=== PATIENT | male | born 1950 | race Caucasian/White ===

== ENCOUNTER 2019-02-17 07:10 | Outpatient (RCR) | payer OTHER, MEDICARE, SELFPAY | END 2019-02-18 00:01 | LOC: ONCMED 07:10 | PROVIDERS: Visit Provider Internal Medicine Medical Oncology | DX: C88.4 Extranodal marginal zone B-cell lymphoma of mucosa-associated lymphoid tissue [MALT-lymphoma] (principal); C90.00 Multiple myeloma not having achieved remission; Z85.528 Personal history of other malignant neoplasm of kidney; D47.2 Monoclonal gammopathy; D64.9 Anemia, unspecified; J90 Pleural effusion, not elsewhere classified; Z90.5 Acquired absence of kidney; R06.02 Shortness of breath; R53.83 Other fatigue; Z51.81 Encounter for therapeutic drug level monitoring; Z79.899 Other long term (current) drug therapy ==

== ENCOUNTER 2019-02-27 07:20 | Outpatient (RCR) | payer OTHER, MEDICARE, SELFPAY ==
[2019-02-24 17:34] LABS: Basophils % 0.9 %; Hematocrit 27.8 % (42.0-52.0); Lymphocytes # 0.2 10^3/uL (0.8-4.8); Lymphocytes % 16.5 %; Mean Corpuscular HGB Conc 32.4 g/dL (30.0-36.0); Mean Corpuscular Hemoglobin 27.8 pg (28.0-34.0); Mean Corpuscular Volume 85.8 fL (80-94); Mean Platelet Volume 10.7 fL (7.4-10.4); Monocytes % 1.7 %; Neutrophils # 0.9 10^3/uL (1.8-7.7); Nucleated Red Blood Cells % 0 %; Platelet Count 158 10^3/cmm (130-400); Red Blood Count 3.24 10^6/uL (4.1-5.3); Red Cell Distribution Width 14.2 % (12.1-15.1); White Blood Count 1.2 10^3/uL (4.0-10.0)
[2019-02-24 23:09] LABS: Alanine Aminotransferase 11 U/L (0-41); Albumin Level 2.8 g/dL (3.5-5.2); Alkaline Phosphatase 110 IU/L (40-130); Anion Gap 13.5 (5-19); Aspartate Amino Transferase 10 U/L (0-40); Blood Urea Nitrogen 29 mg/dL (8-23); Calcium 9.1 mg/Dl (8.8-10.2); Carbon Dioxide 23 mmol/L (22-29); Chloride 96 mmol/L (98-107); Globulin 5.8 g/dL (1.3-4.6); Glucose 109 mg/dL (74-106); Potassium 4.5 mmol/L (3.5-5.1); Sodium 128 mmol/L (136-145); Total Bilirubin 0.6 mg/dL (0.15-1.2); Total Protein 8.6 g/dL (6.6-8.7)
[2019-02-27 13:38] LABS: Alanine Aminotransferase 7 U/L (0-41); Albumin Level 2.5 g/dL (3.5-5.2); Alkaline Phosphatase 86 IU/L (40-130); Anion Gap 13.7 (5-19); Aspartate Amino Transferase 10 U/L (0-40); Blood Urea Nitrogen 28 mg/dL (8-23); Calcium 8.7 mg/Dl (8.8-10.2); Carbon Dioxide 22 mmol/L (22-29); Chloride 97 mmol/L (98-107); Globulin 4.5 g/dL (1.3-4.6); Glucose 116 mg/dL (74-106); Potassium 4.7 mmol/L (3.5-5.1); Sodium 128 mmol/L (136-145); Total Bilirubin 0.5 mg/dL (0.15-1.2)
[2019-02-27 13:59] LABS: Hematocrit 21.7 % (42.0-52.0); Lymphocytes # 0.2 10^3/uL (0.8-4.8); Lymphocytes % 35.6 %; Mean Corpuscular HGB Conc 32.3 g/dL (30.0-36.0); Mean Corpuscular Hemoglobin 28.2 pg (28.0-34.0); Mean Corpuscular Volume 87.5 fL (80-94); Mean Platelet Volume 10.9 fL (7.4-10.4); Monocytes % 1.7 %; Neutrophils % 40.7 %; Nucleated Red Blood Cells % 0 %; Platelet Count 118 10^3/cmm (130-400); Red Blood Count 2.48 10^6/uL (4.1-5.3); Red Cell Distribution Width 14.3 % (12.1-15.1)
[2019-02-27 15:19] LABS: Neutrophils # 0.2 10^3/uL (1.8-7.7); White Blood Count 0.6 10^3/uL (4.0-10.0)
[2019-02-27 15:20] LABS: Slide Review Slide Review Perform
[2019-02-28] VITALS (10 sets, daily range): BP systolic 89–108; BP diastolic 58–71; PULSE 65–85; RESP 18; TEMP 36.4–36.7; O2SAT 68–98
[2019-03-10 09:34] LABS: Alanine Aminotransferase 10 U/L (0-41); Albumin Level 2.5 g/dL (3.5-5.2); Alkaline Phosphatase 111 IU/L (40-130); Anion Gap 14.5 (5-19); Aspartate Amino Transferase 11 U/L (0-40); Blood Urea Nitrogen 24 mg/dL (8-23); Calcium 9.1 mg/Dl (8.8-10.2); Carbon Dioxide 23 mmol/L (22-29); Chloride 98 mmol/L (98-107); Globulin 5.5 g/dL (1.3-4.6); Glucose 111 mg/dL (74-106); Potassium 4.5 mmol/L (3.5-5.1); Sodium 131 mmol/L (136-145); Total Bilirubin 0.5 mg/dL (0.15-1.2)
[2019-03-10 09:39] LABS: Basophils % 0.5 %; Hematocrit 27.8 % (42.0-52.0); Hemoglobin 9.3 g/dL (11.7-16.6); Lymphocytes # 0.3 10^3/uL (0.8-4.8); Lymphocytes % 4.8 %; Mean Corpuscular HGB Conc 33.5 g/dL (30.0-36.0); Mean Corpuscular Hemoglobin 27.5 pg (28.0-34.0); Mean Corpuscular Volume 82.2 fL (80-94); Mean Platelet Volume 9.7 fL (7.4-10.4); Monocytes # 0.3 10^3/uL (0.2-0.9); Monocytes % 4.5 %; Neutrophils # 5.4 10^3/uL (1.8-7.7); Neutrophils % 86.1 %; Nucleated Red Blood Cells % 0 %; Platelet Count 199 10^3/cmm (130-400); Red Blood Count 3.38 10^6/uL (4.1-5.3); White Blood Count 6.3 10^3/uL (4.0-10.0)
[2019-03-10 09:53] LABS: Slide Review Slide Review Perform
[2019-03-13 08:37] LABS: Basophils % 0.1 %; Hematocrit 26.2 % (42.0-52.0); Hemoglobin 8.5 g/dL (11.7-16.6); Lymphocytes # 0.3 10^3/uL (0.8-4.8); Lymphocytes % 4.8 %; Mean Corpuscular HGB Conc 32.4 g/dL (30.0-36.0); Mean Corpuscular Hemoglobin 26.8 pg (28.0-34.0); Mean Corpuscular Volume 82.6 fL (80-94); Mean Platelet Volume 9.3 fL (7.4-10.4); Monocytes # 0.3 10^3/uL (0.2-0.9); Monocytes % 4.2 %; Neutrophils # 5.5 10^3/uL (1.8-7.7); Neutrophils % 81.5 %; Nucleated Red Blood Cells % 0 %; Platelet Count 255 10^3/cmm (130-400); Red Blood Count 3.17 10^6/uL (4.1-5.3); Red Cell Distribution Width 14.1 % (12.1-15.1); White Blood Count 6.7 10^3/uL (4.0-10.0)
[2019-03-13 08:55] LABS: Alanine Aminotransferase 9 U/L (0-41); Albumin Level 2.8 g/dL (3.5-5.2); Alkaline Phosphatase 128 IU/L (40-130); Anion Gap 14.6 (5-19); Aspartate Amino Transferase 13 U/L (0-40); Blood Urea Nitrogen 26 mg/dL (8-23); Calcium 9.1 mg/Dl (8.8-10.2); Carbon Dioxide 23 mmol/L (22-29); Chloride 97 mmol/L (98-107); Globulin 5.4 g/dL (1.3-4.6); Glucose 136 mg/dL (74-106); Potassium 4.6 mmol/L (3.5-5.1); Sodium 130 mmol/L (136-145); Total Bilirubin 0.4 mg/dL (0.15-1.2); Total Protein 8.2 g/dL (6.6-8.7)
[2019-03-13 09:15] LABS: Slide Review Slide Review Perform
--- NOTE | 2019-03-15 13:53 | ONC FU_ITS ---
Dr. Lazo Patient Follow-Up Note Patient: Malik Montiel Unit #: [id number]: [id number] Dicatated By: Ulysses Lazo M.D.Date of Visit:Mar 13, 2019 Onc Med Follow-up/Prog Note Chief Complaint: Anemia/lymphoma/myeloma/renal cell cancer. 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 He had presented in October 2015 with fatigue, shortness of breath, dizziness, and numbness/tingling. He was found on CBC to have a hemoglobin of 6.7 g. He received a transfusion of 2 U of packed red blood cells on 11/12/2015, and he subsequently felt much better. He had further laboratory evaluation on 11/12/2015 including haptoglobin which was normal at 71.8 mg/dL, normal serum iron at 133 mcg/dL with transferrin saturation 33%, and normal ferritin at 301 ng/mL. LDH was normal 166 U/L. Folate was elevated. Protein electrophoresis showed an IgG kappa monoclonal protein quantitating at 0.90 g/dL. The free kappa light chain was elevated at 344 mg/L, and the kappa: lambda ratio was elevated at 26.31. Skeletal survey on 11/19/2015 showed no evidence of lytic bone involvement. He underwent bone marrow aspiration/biopsy on 11/29/2015. The bone marrow was packed, cellularity 100%. It was a dry tap, so there was no aspirate available for analysis. The biopsy touch preps showed a proliferation of atypical mononuclear cells consistent with lymphoid origin. The bone marrow differential, based on the biopsy, showed an estimated 84% lymphocytes. The findings were felt to be consistent with extensive bone marrow involvement with a small B cell lymphoma with a diffuse pattern of infiltration. Plasma cells were noted to be just slightly increased with a slight kappa predilection. The immunophenotype of the B cell neoplasm was felt to be nonspecific, but favored marginal zone lymphoma. Iron stores were present 1+/4+. At the time of the bone marrow biopsy, his hemoglobin was back down to 7.7 g, and he did receive an additional 2 U of packed red blood cells. Staging PET/CT on 12/04/2015 showed an 8 cm heterogeneous mass involving the anterior right kidney with low grade FDG uptake, consistent with a probable incidental right renal cell carcinoma. There were no obvious sites of lymphoma or soft tissue plasmacytoma. Given the bone marrow findings, treatment with single agent rituximab weekly for 6 weeks was recommended. He received his week 1 infusion of rituximab on 12/16/15. He did experience an infusion reaction with it, but he subsequently tolerated treatment well with Solu-Medrol premedication. As of 01/20/2016 he completed his sixth weekly infusion. During the treatment he did show some symptomatic improvement, but he remained moderately anemic. Repeat bone marrow aspiration/biopsy on 02/23/2016 again showed a dry tap, with no obtainable aspirate. The cellularity was 100% with complete effacement by lymphoid proliferation consistent with the previous diagnosis of small B-cell lymphoma favoring marginal zone lymphoma. Whole blood flow cytometry showed rare CD5/CD10 double negative monotypic B cells with dim kappa light chain. The cells were positive for CD23 and negative for FMC-7. IHC demonstrated dim CD20 as well as strong CD43 and BCL-2. The cells were negative for CD5, CD10, CD3, BCL-6, BRAF, and CD21. The MYD-88 mutation was not detected. The findings were felt to be diagnostic of a small B-cell lymphoma. CT scans of the chest, abdomen, and pelvis on 03/15/2016 showed the large right renal mass measuring 10.5 x 8.4 x 8.7 cm, similar to the prior PET/CT. Left supraclavicular, AP window, mesenteric, and retroperitoneal lymphadenopathy were present on the prior PET CT from 12/04/2015 and were FDG negative. Also noted was a 5 mm spiculated nodule in the right middle lobe and additional 2 mm scattered noncalcified nodules in the left upper lobe. With those findings, he was seen by Dr. Mamadou Alvarado at [facility] for a second opinion evaluation. Evaluation included biopsy of the right renal mass, which did confirm involvement with lymphoma. He was recommended to continue treatment with a course of chemotherapy with bendamustine/Rituxan. He began cycle 1 of bendamustine/Rituxan on 04/21/2016. He was able to continue with cycle 2 on 05/19/2016 and with cycle 3 on 06/20/2016. The third cycle was delayed due to prolonged but not severe neutropenia. He was given Neulasta prophylactically with that cycle. He tolerated the treatment well, but there was still no improvement in his anemia. Restaging CT of the abdomen/pelvis on 07/19/2016 showed resolution of mesenteric and retroperitoneal lymphadenopathy, but no significant change in the complex right renal mass, measuring 10.5 x 8.7 x 9.2 cm. The spleen was still slightly enlarged. Repeat bone marrow aspiration/biopsy on 08/02/2016 showed persistent hypercellularity, estimated at 95-100%. Flow cytometry still showed evidence of a monoclonal B-cell population, but it accounted for only 1-2% of the marrow cellularity. Plasma cells were estimated at 10-20% with kappa light chain predominance, suggestive of plasma cell dyscrasia. Repeat protein electrophoresis showed persistent IgG kappa monoclonal protein, increased to 1.57 g/dL compared to 0.86 g/dL on 03/27/2016. The free kappa light chain was elevated at 753 mg/L with the kappa/lambda ration elevated at 70.64. A random urine showed a protein concentration of 8 mg/dL, 5.1% of which was monoclonal protein. Skeletal survey showed no lytic bone involvement. He returned to [facility] and he was seen by Dr. Jared Escobar on 10/16/2016. On their review of the bone marrow it was felt that the kappa restricted [id number] cells comprised 20 to 25% of the marrow aspirate, and he was recommended to begin treatment with KRd or VRd pending outcome of repeat bone marrow aspiration/biopsy and repeat staging PET/CT. PET/CT on 10/26/2016 showed FDG avid mixed cystic and solid right renal mass, SUV 2.1. A mildly prominent periaortic lymph node measuring 1.3 x 0.9 cm showed low-level uptake, SUV 2.7. A normal sized subcarinal lymph node showed mild hypermetabolism, SUV 2.5. There was no evidence of osseous involvement with myeloma. There was an abnormal focus of hypermetabolism within the left frontal cortex of the brain with maximum SUV 5.7, highly suspicious for neoplastic process. Further evaluation with brain MRI on 10/31/2016 showed numerous enhancing intraparenchymal metastatic lesions, estimated at 10-12 in number, the largest in the left frontal lobe measuring 2.1 cm. He returned to [facility] where he was admitted to the hospital and then completed additional evaluation with lumbar puncture and biopsy of the left frontal lobe mass. During that time he was transfused a total of 4 units of PRBC. He was discharged home on dexamethasone and Keppra. Pathology ultimately was nondiagnostic. During subsequent follow-up, he was tapered off dexamethasone. He then returned to [facility] and he underwent left frontal craniotomy with open biopsy of the left frontal lobe lesion. Pathology showed metastatic clear cell carcinoma consistent with renal primary. On 05/03/2017 he underwent right laparoscopic radical nephrectomy at [facility]. His tumor was noted to be locally advanced, with extension to the renal sinus, but it was completely resected. Pathology showed renal cell carcinoma measuring 9.5 cm, clear-cell type, WHO/ISUP grade 2. There was invasion of the renal sinus, but resection margins were uninvolved. There were no lymph nodes included in the specimen. Pathologic staging was pT3a, Nx. A noncontrast head CT on 06/07/2017 reported new multiple 5 mm hyperdense foci within the brain, but without a significant amount of surrounding edema or mass effect. He required further transfusions of packed red blood cells on 06/07/2017, on 07/03/2017, and on 07/19/2017. He had follow-up with Dr. Dereje Jones at [facility] on 07/24/2017. His repeat MRI at that time showed no evidence of recurrence within the left tumor cavity. The left posterior frontal treated lesion was noted to have less peritumoral edema and slightly less enhancement. The left insular tumor was difficult to detect, and the right posterior temporal tumors appeared approximately the same without any clear enhancement. Overall, it was felt that his brain lesions appeared adequately treated and with no new lesions identified. He was recommended to return for follow-up in 3 months. Restaging PET/CT on 08/11/2017 showed abnormal activity in the left supraclavicular lymph node, SUV 2.9. A 1 cm left superior mediastinal lymph node was FDG avid, SUV 4.4. A subcarinal lymph node measuring 1.5 cm was FDG avid with SUV 7.5 and a 1.5 cm right retrocrural node at the level of the diaphragmatic hiatus was noted to have mild abnormal FDG activity. Other small subcentimeter retroperitoneal lymph nodes showed no significant FDG activity. Multiple hepatic hypodensities were noted to be FDG negative and unchanged from the prior study in November 2015. There was no evidence of other metastatic disease. On 08/16/2017 he underwent repeat bone marrow aspiration/biopsy and biopsy of a left posterior cervical lymph node. Pathology on the lymph node showed small B-cell lymphoma with plasmacytic differentiation. The malignant cells were positive for CD45, CD19, CD20, CD23, and kappa light chain. They were negative for CD5, CD10, and FMC7. The reported differential included CD5 negative SLL/CLL versus marginal zone lymphoma. The bone marrow aspiration/biopsy was hypercellular with 100% cellularity. There was mild reticulin fibrosis noted. There were no overt dysplastic changes. There was no obvious infiltrative process identified. The flow cytometry demonstrated predominantly mature granulocytes. There were only rare polytypic B cells noted without aberrant antigen expression. There was no increase in CD34 positive blasts, CD117 positive immature precursors, or plasma cells. The FISH panels for myeloma and MDS were unrevealing, and the standard cytogenetic study was normal. Overall, the bone marrow was hypercellular but otherwise nondiagnostic. Given those findings, I had opted to just continue with observation and symptomatic/supportive measures. He remained transfusion dependent. His laboratory studies did show evidence of transfusion associated iron overload, and he then started treatment with Jadenu 14 mg/kg daily. A repeat brain MRI on 10/23/2017 showed postoperative changes of interval left frontal craniotomy with resection cavity and a small amount of surrounding glioma doses. A 5 mm enhancing lesion in the left posterior frontal lobe was felt to be new. There was associated small amount of surrounding edema and hemosiderin. The previously described enhancing lesions had showed interval resolution. There was interval significant improvement in the previously described edema. However, during follow-up he remained transfusion dependent, and there was gradual increase in his M protein. Restaging PET/CT on 02/02/2018 showed decrease in the left supraclavicular and left superior mediastinal lymph nodes which had been noted on the prior study. A 1.5 cm subcarinal lymph node appeared stable, SUV 8.8. There was progression of right retrocrural node and there was a new portal lymph node measuring 1.4 cm. Also noted were new bilateral retroperitoneal lymph nodes in the right and left periaortic chair territories. These were consistent with disease progression. In February 2017 he underwent reevaluation with Dr. Jared Escobar at [facility]. His repeat bone marrow aspiration/biopsy on 03/08/2018 showed extensive involvement with recurrent/persistent B-cell lymphoma, estimated at greater than 70% involvement. The morphologic and immunophenotypic features were felt to be most consistent with a B-cell lymphoma with plasmacytic differentiation. Also noted was a kappa restricted plasma cell population comprising 10% of the marrow cellularity. With those findings, it was recommended that he begin a course of chemotherapy with cyclophosphamide/Velcade/dexamethasone. He began cycle 1 of cyclophosphamide/Velcade/dexamethasone on 04/08/2018. He also started weekly Procrit injections for the anemia. He tolerated the treatment well and he was able to continue with cycle 2 on 04/29/2018. His cycle 2 day 8 cyclophosphamide and his day 11 Velcade were held and his cycle 3 was delayed due to neutropenia. He was able to continue with cycle 3 on 05/27/2018. It was again complicated by neutropenia, and that cycle was limited to day 1 cyclophosphamide and day 1/day 4 Velcade. During this time he continued Procrit injections weekly. He had remained transfusion dependent, though not as frequently. His repeat protein electrophoresis on 06/17/2018 showed stable M protein at 3.1 g/dL. He continued with cycle 4 of cyclophosphamide/Velcade/dexamethasone on 06/24/2018, with cycle 5 on 07/16/2018, and with cycle 6 on 08/05/2018. Repeat bone marrow aspiration/biopsy on 08/29/2018 showed hypercellular marrow at 100% cellularity with an atypical lymphoid proliferation comprising 70-75% of the hematopoietic population. Flow cytometry showed a monotypic B-cell population comprising 10% of the total cellularity. The B cells were positive for CD45, CD19, CD20, CD23, and kappa light chain. They were negative for CD5, CD10, and FMC7. Nucleated RBCs were noted to be markedly decreased and relative number. There was limited dyserythropoiesis. Ring sideroblasts were noted to comprise 10% of the population. 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 The FISH panel was positive for IGH gain ( trisomy for chromosomes 14 q/14 or IGH rearrangement). Restaging PET/CT on 08/31/2018 showed unchanged subcarinal mediastinal lymph node and interval development of new prevascular lymph node. There was interval progression of existing and development of new abdominal malignant adenopathy. Also noted was a new 5 mm right apical pulmonary nodule with SUV 3.7, suspicious for malignancy. On 09/09/2018 he was hospitalized with pneumonia. He had very gradual recovery following that illness, and during subsequent follow-up he remained transfusion dependent. He also has continued to have severe neutropenia, and his further chemotherapy has remain on hold. During this time he was treated with Neupogen, and he did show response, but his neutrophil count had then gradually declined again. I had seen him for a follow-up visit on 11/19/2018. At that point I had recommended a trial of therapy with venetoclax together with Neupogen or Neulasta. We were able to get insurance approval for the venetoclax, but not the growth factor. He had opted, though, to delay starting treatment until after deer hunting season. During that time, he continued to require PRBC transfusion on a regular basis. Sometime near the end of November he had fallen at home and sustained an injury to his left rib cage. Due to persistent pain in that area and to the delay in starting his treatment, I had recommended that he have restaging CT scans. His CT scans of the chest, abdomen, and pelvis on 01/27/2019 showed long-term stability of an irregular 5 mm pulmonary nodule in the right middle lobe. A right apical lymph node was no longer present. Left upper pneumonia appeared to have resolved. There was persistent small left pleural effusion but resolution of right pleural effusion. There were numerous small axillary, mediastinal, and hilar lymph nodes, largest in the subcarinal area measuring 2.5 x 2.0 cm. There were numerous left-sided rib fractures. The spleen was noted to be enlarged measuring 17.3 cm. Low-attenuation throughout the liver felt to be compatible with cysts. There appeared to be increasing size and number of retrocrural, mesenteric, and retroperitoneal adenopathy, but the increase was in the range of 2 to 3 mm in diameter. His past medical history is unremarkable. He has had no prior medical illnesses. His only other surgery was a hernia repair. He is a nonsmoker. INTERIM HISTORY: On 01/29/2019 he started treatment with venetoclax at 20 mg daily. I also had him start prednisone 20 mg daily. He tolerated the low dosage with no adverse effects, and he has since then continued to escalate the dosage per the standard protocol. As of 02/17/2019 he had persistent but stable neutropenia. He had remained transfusion dependent. As of 02/19/2019 the venetoclax dosage was increased to 200 mg daily, and as of 02/26/2019 it was further escalated to 400 mg daily. As of 03/06/2019 the venetoclax was put on hold due to worsening neutropenia, with ANC 200. He then started growth factor support with Neupogen 300 mcg daily. Within 3 days the white count had come up to 6300 with absolute neutrophil count 5400, and the Neupogen was stopped. At that point the platelet count had also increased significantly, from 134,000 to 199,000. He is seen for a follow-up visit. He has been feeling pretty good generally, though some days he is still very tired. His ECOG score is 1. His appetite generally is good. He has no fever or night sweats. He is having some sinus drainage and cough. His voice comes and goes. He does not have shortness of breath or chest pain. He has no GI or complaints. He has no significant joint or bone pain. He has just mild headaches. They are relieved with Tylenol. He does have difficulty with balance. He has no numbness/paresthesia or other focal neurologic symptoms. Medications: Acetaminophen 1 (325 mg) Tablet Oral q 4 hours PRN, Acyclovir 1 Tablet (of 400 mg) Oral daily, Jadenu 1 Tablet (of 1620 mg) Oral daily, Levaquin 500 (500 mg) Tablet Oral PRN, Lyrica 1 Capsule (of 100 mg) Oral b.i.d., Multivitamin 1 Tablet Liquid Oral daily PRN, Pantoprazole Sodium 1 Tablet (of 40 mg) Tablet, enteric coated Oral daily PRN, predniSONE 20 mg (of 20 mg) Tablet Oral daily, Prochlorperazine Maleate 1 Tablet (of 10 mg) Oral q 4 hours PRN, Tamsulosin HCl 2 (0.4 mg) Capsule Oral at bedtime, vendexta 400 mg Tablet daily, Voltaren Gel (jelly) Transdermal PRN Allergies: No Known Allergies. Review of Systems: Constitutional - His energy varies. His appetite is good and his weight is stable. No fever, chills, hot flashes, or night sweats. ECOG score is 1, ENMT - No sinus congestion/drainage. No mouth sores. No sore throat or difficulty swallowing. His voice comes and goes, Hematologic/Lymphatic - No abnormal bruising or bleeding, Respiratory - No shortness of breath. No cough. No pleuritic pain or hemoptysis, Cardiovascular - No angina pain. No palpitations, Gastrointestinal - No nausea or vomiting. No heartburn or acid reflux. No diarrhea or constipation. No blood in the stool or black stools, Genitourinary (M) - No dysuria or hematuria. No urinary frequency. No urgency or incontinence, Musculoskeletal - No joint or bone pain, Integumentary - No skin complications, Neurologic - He has occasional headaches that is relieved with Tylenol. He has dizziness when he gets low on blood. No numbness/paresthesias or other focal neurologic symptoms, Psychiatric - No anxiety or depression. No insomnia. Vital Signs: Performed on Mar 13, 2019 14:43 Height - 73.00 in Temperature - 98.1 F (LOW) Pulse - 72 /min Respiration - 18 /min BP - 109/62 mm(hg) O2 Sat - 97 % Performed on Mar 13, 2019 08:43 Height - 73.00 in Weight - 150.4 lbs (HIGH) BSA - 1.91 sq.m BMI - 19.84 Temperature - 98.0 F (LOW) Pulse - 67 /min Respiration - 18 /min BP - 105/67 mm(hg) O2 Sat - 98 % Pain - 0 Physical Examination: Constitutional - He looks a little better, but he still appears somewhat weak generally, Eyes - Sclerae nonicteric. Conjunctivae clear, ENMT - The lesion near the tip of his tongue has now completely resolved. There are no other lesions noted in the oral cavity, Hematologic/Lymphatic - There is no cervical, clavicular, or axillary adenopathy noted, Respiratory - Lungs sound clear, Cardiovascular - Heart rhythm is regular. There is a III/ systolic murmur. There is no gallop or rub noted, Abdomen - Soft. Liver is not enlarged. Spleen is not palpable. There is no abdominal mass or ascites noted. There are small inguinal lymph nodes bilaterally, Extremities - No edema, Neurologic - No focal neurologic deficits noted. Lab/Imaging: Test performed on Mar 13, 2019 08:14 Sodium 130 mmol/L Potassium 4.6 mmol/L Chloride 97 mmol/L CO2 23 mmol/L Anion Gap 14.6 BUN 26 mg/dL Creatinine 1.2 mg/dL Cr Clearance (Est) 56.1500 mL/min Glucose 136 mg/dL Calcium 9.1 mg/Dl Protein, Total 8.2 g/dL Albumin 2.8 g/dL Globulin 5.4 g/dL Bilirubin, Total 0.4 mg/dL ALT (SGPT) 9 U/L AST (SGOT) 13 U/L Alkaline Phosphatase 128 IU/L WBC 6.7 10 3/uL RBC 3.17 10 6/uL HGB 8.5 g/dL HCT 26.2 % MCV 82.6 fL MCH 26.8 pg MCHC 32.4 g/dL RDW 14.1 % Platelet Count 255 10 3/cmm MPV 9.3 fL Neutrophils 5.5 10 3/uL Lymphocytes 0.3 10 3/uL Monocytes 0.3 10 3/uL Eosinophils 0.0 10 3/uL Basophils 0.0 10 3/uL Neutrophil % 81.5 % Lymphocyte % 4.8 % Monocyte % 4.2 % Eosinophil % 0.0 % Basophils % 0.1 % CBC Slide Review Slide Review Perform SLIDE REVIEW AGREES WITH AUTOMATED RESULTS ST Impression: 1. Patient with multiple malignancies including marginal zone lymphoma, stage IV renal cell carcinoma, and suspected myeloma. 2. He had initially presented in October 2015 with anemia and IgG kappa monoclonal gammopathy. 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 He also was found to have a large right renal mass. He underwent treatment with 6 weekly infusions of rituximab, completed on 01/20/2016. 3. Repeat bone marrow aspiration/biopsy on 02/23/2016 again showed 100% cellularity with complete effacement by a lymphoid proliferation. 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 4. He then had a second opinion evaluation with Dr. Mamadou Alvarado at [facility]. His evaluation there had included biopsy the right renal mass, with pathology reporting involvement with lymphoma. He was advised to continue treatment with a course of bendamustine/Rituxan chemotherapy, which began on 04/21/2016. He completed 3 cycles of treatment. He had prolonged but not severe neutropenia after the second cycle, and he did receive Neulasta prophylaxis with cycle 3. He tolerated the treatment well otherwise. However, he remained moderately anemic. His restaging CT abdomen/pelvis on 07/19/2016 showed resolution of the small mesenteric and retroperitoneal lymph nodes, but no significant change in the right renal mass. 5. His repeat bone marrow aspiration/biopsy on 08/02/2016 showed only a small amount of residual monoclonal B cells, estimated at 1-2% of the marrow cellularity. [place] restricted plasma cells were estimated at 20-25% of the cellularity, suspicious for plasma cell dyscrasia. His repeat protein electrophoresis showed an increase in his M protein to 1.57 g/dL. Skeletal survey showed no evidence of lytic bone involvement. Overall, the findings were felt to be consistent with myeloma. 6. He underwent left frontal craniotomy with excision of brain metastasis on 03/14/2017, pathology consistent with metastatic renal cell carcinoma. He underwent gamma knife radiosurgery to 4 additional brain lesions. 7. He underwent cytoreductive right laparoscopic radical nephrectomy on 05/03/2017. Pathology showed grade 2 renal cell carcinoma measuring 9.5 cm, clear cell type, pathologic stage T3a, NX. Since his initial presentation in October 2015 he has remained moderately anemic and transfusion dependent. The exact cause of the anemia remains uncertain, but it has not improved with treatment for the lymphoma or with surgical resection of the renal cell carcinoma. His follow-up brain MRI showed evidence of treated brain lesions and no indication of progression of metastatic disease in the brain. His restaging PET/CT on 08/11/2017 showed FDG avid lymph nodes at several sites, including the left supraclavicular area, superior mediastinum, subcarinal area, and retrocrural area. The largest of these measured 1.5 cm. There were no other areas of metastatic involvement noted. He underwent repeat bone marrow aspiration/biopsy and left cervical lymph node biopsy on 08/16/2017. 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 The bone marrow aspiration/biopsy was hypercellular, but with no diagnostic findings. There was a small amount of reticulin fibrosis noted. There was no increase in plasma cells and there was no evidence of lymphoma in the bone marrow. There also was no evidence of myelodysplastic syndrome. When those findings, I opted to follow him on observation and symptomatic/supportive measures. In August 2017 he began treatment with Jadenu 14 mg/kg daily for transfusion associated iron overload. His repeat head MRI on 10/23/2017 reported a new 5 mm lesion in the left posterior frontal lobe with a small amount of surrounding edema. All of the lesions which had been previously treated showed significant improvement. During subsequent follow-up he has remained transfusion dependent. He has started treatment with Jadenu for transfusion associated iron overload. His overall clinical status has been stable, but there was gradual increase in his M protein. Restaging PET/CT in January 2018 showed mild progression of lymphadenopathy, mainly in the carleen hepatis and retroperitoneal area. His repeat bone marrow aspiration/biopsy on 03/08/2018 showed extensive involvement with B-cell lymphoma, estimated at greater than 70% involvement. 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 Also noted was a kappa restricted plasma cell population estimated at 10% of the cellularity. On 04/08/2018 he began a course of treatment with cyclophosphamide, Velcade, and dexamethasone. He also started Procrit injections, and he was started on Jadenu for transfusion associated iron overload. His cycle 2 day 8 cyclophosphamide was held due to neutropenia. His cycle 3 was delayed by 1 week because his granulocyte count remained low, and that cycle was limited to just day 1 cyclophosphamide and day 1/day 4 Velcade. He continued with cycle 4 of cyclophosphamide/Velcade/dexamethasone on 06/24/2018, with cycle 5 on 07/16/2018, and with cycle 6 on 08/05/2018. His restaging bone marrow aspiration/biopsy 08/29/2018 showed 100% cellularity with 70-75% atypical lymphocytes, consistent with residual lymphoma. 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 There also was evidence of disease progression on his restaging PET/CT. On 09/09/2018 he was admitted to the hospital with pneumonia. He has been showing gradual recovery, but during this time he had a significant decline in his performance status. He remained transfusion dependent anemia, and he had moderately severe neutropenia and thrombocytopenia. In September 2018 he began trial of therapy with ibrutinib 420 mg daily. Within a short time he had become severely neutropenic, and the ibrutinib was put on hold. He subsequently did show some response to Neupogen, but with subsequant decline in the neutrophil count. He was then recommended to have a trial of therapy with venetoclax in combination with Neupogen or Neulasta. We were able to get approval for the venetoclax, but not the growth inhibitor. He had opted to put off the treatment until after hunting season. During follow-up he continued to have transfusion dependent anemia and a very significant IgG kappa monoclonal protein spike. He had a continued gradual decline in performance status. He fell at home and sustained multiple left rib fractures. His restaging CT scans on showed some progression of lymphadenopathy, though still not bulky. With evidence of disease progression and with declining performance status, I opted to have him begin treatment with venetoclax/rituximab. He began the venetoclax on 01/29/2019 and a dose of 20 mg daily. At that time I also had him start prednisone 20 mg daily. He was able to tolerate the low dosage of venetoclax with no adverse effects, and he then continued escalating the dosage per the standard protocol. As of 02/17/2019 he had continued to have moderately severe but stable neutropenia. He had also remained transfusion dependent. As of 02/19/2019 the venetoclax dosage was increased to 200 mg daily, and as of 02/26/2019 it was further escalated to 400 mg daily. As of 03/06/2019 his treatment was put on hold due to worsening neutropenia, ANC 200. He then started growth factor support with Neupogen. He had a very good response. Within 3 days his absolute neutrophil count had increased to 5400, and thus far it has remained stable off Neupogen. During that time, there also has been a significant increase in his platelet count and there also has been a significant decline in his M protein, so that he does appear to be showing a response to the treatment. Unfortunately he continues have transfusion dependent anemia. Plan: He will restart the venetoclax at 400 mg daily. He will now begin his 1st of 6 planned monthly cycles of rituximab. For now he will also continue the prednisone at 20 mg daily. If there is recurrence of severe neutropenia, the venetoclax will again be put on hold and then restarted with the dosage reduced to 200 mg daily. I will continue to monitor blood counts twice weekly. He will be transfused PRBC as needed. Signed By: Ulysses Lazo M.D. <<Signature on File>>
== END 2019-02-27 23:59 | disposition home or self-care (01) ==
LOC: ONCMED 07:20
PROVIDERS: Nurse Practitioner; Visit Provider Internal Medicine Medical Oncology
DX: C90.00 Multiple myeloma not having achieved remission (principal); Z79.899 Other long term (current) drug therapy; C64.1 Malignant neoplasm of right kidney, except renal pelvis
CPT/HCPCS: 36415; 36430; 80053; 85025; 86850; 86900; 96367; 96368; 96372; 96413; 96415; 99211; P9040

== ENCOUNTER 2019-03-19 07:10 | Outpatient (RCR) | payer OTHER, MEDICARE, SELFPAY ==
[2019-02-20 15:26] LABS: Hematocrit 22.5 % (42.0-52.0); Hemoglobin 7.3 g/dL (11.7-16.6); Lymphocytes # 0.2 10^3/uL (0.8-4.8); Lymphocytes % 20.3 %; Mean Corpuscular HGB Conc 32.4 g/dL (30.0-36.0); Mean Corpuscular Hemoglobin 28.5 pg (28.0-34.0); Mean Corpuscular Volume 87.9 fL (80-94); Mean Platelet Volume 10.6 fL (7.4-10.4); Monocytes % 1.3 %; Neutrophils % 68.3 %; Nucleated Red Blood Cells % 0 %; Platelet Count 123 10^3/cmm (130-400); Red Blood Count 2.56 10^6/uL (4.1-5.3); Red Cell Distribution Width 14.1 % (12.1-15.1)
[2019-02-20 16:25] LABS: Neutrophils # 0.5 10^3/uL (1.8-7.7); White Blood Count 0.8 10^3/uL (4.0-10.0)
[2019-02-20 16:26] LABS: Slide Review Slide Review Perform
[2019-02-20 22:47] LABS: Alanine Aminotransferase 12 U/L (0-41); Albumin Level 2.4 g/dL (3.5-5.2); Alkaline Phosphatase 82 IU/L (40-130); Aspartate Amino Transferase 12 U/L (0-40); Blood Urea Nitrogen 33 mg/dL (8-23); Calcium 8.4 mg/Dl (8.8-10.2); Carbon Dioxide 20 mmol/L (22-29); Chloride 99 mmol/L (98-107); Globulin 5.2 g/dL (1.3-4.6); Glucose 113 mg/dL (74-106); Sodium 129 mmol/L (136-145); Total Bilirubin 0.5 mg/dL (0.15-1.2); Total Protein 7.6 g/dL (6.6-8.7); Uric Acid 4.1 mg/dL (3.4-7.0)
[2019-02-21] VITALS (9 sets, daily range): BP systolic 85–109; BP diastolic 57–65; PULSE 71–89; RESP 18; TEMP 36.5–36.7; O2SAT 95–97
[2019-02-21 09:41] LABS: Lactate Dehydrogenase 138 U/L (135-225)
--- NOTE | 2019-02-22 12:01 | ONC FU_ITS ---
Dr. Lazo Patient Follow-Up Note Patient: Malik Montiel Unit #: [id number]: 1950 Dicatated By: Ulysses Lazo M.D.Date of Visit:Feb 21, 2019 Onc Med Follow-up/Prog Note Chief Complaint: Anemia/lymphoma/myeloma/renal cell cancer. 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 He had presented in October 2015 with fatigue, shortness of breath, dizziness, and numbness/tingling. He was found on CBC to have a hemoglobin of 6.7 g. He received a transfusion of 2 U of packed red blood cells on 11/12/2015, and he subsequently felt much better. He had further laboratory evaluation on 11/12/2015 including haptoglobin which was normal at 71.8 mg/dL, normal serum iron at 133 mcg/dL with transferrin saturation 33%, and normal ferritin at 301 ng/mL. LDH was normal 166 U/L. Folate was elevated. Protein electrophoresis showed an IgG kappa monoclonal protein quantitating at 0.90 g/dL. The free kappa light chain was elevated at 344 mg/L, and the kappa: lambda ratio was elevated at 26.31. Skeletal survey on 11/19/2015 showed no evidence of lytic bone involvement. He underwent bone marrow aspiration/biopsy on 11/29/2015. The bone marrow was packed, cellularity 100%. It was a dry tap, so there was no aspirate available for analysis. The biopsy touch preps showed a proliferation of atypical mononuclear cells consistent with lymphoid origin. The bone marrow differential, based on the biopsy, showed an estimated 84% lymphocytes. The findings were felt to be consistent with extensive bone marrow involvement with a small B cell lymphoma with a diffuse pattern of infiltration. Plasma cells were noted to be just slightly increased with a slight kappa predilection. The immunophenotype of the B cell neoplasm was felt to be nonspecific, but favored marginal zone lymphoma. Iron stores were present 1+/4+. At the time of the bone marrow biopsy, his hemoglobin was back down to 7.7 g, and he did receive an additional 2 U of packed red blood cells. Staging PET/CT on 12/04/2015 showed an 8 cm heterogeneous mass involving the anterior right kidney with low grade FDG uptake, consistent with a probable incidental right renal cell carcinoma. There were no obvious sites of lymphoma or soft tissue plasmacytoma. Given the bone marrow findings, treatment with single agent rituximab weekly for 6 weeks was recommended. He received his week 1 infusion of rituximab on 12/16/15. He did experience an infusion reaction with it, but he subsequently tolerated treatment well with Solu-Medrol premedication. As of 01/20/2016 he completed his sixth weekly infusion. During the treatment he did show some symptomatic improvement, but he remained moderately anemic. Repeat bone marrow aspiration/biopsy on 02/23/2016 again showed a dry tap, with no obtainable aspirate. The cellularity was 100% with complete effacement by lymphoid proliferation consistent with the previous diagnosis of small B-cell lymphoma favoring marginal zone lymphoma. Whole blood flow cytometry showed rare CD5/CD10 double negative monotypic B cells with dim kappa light chain. The cells were positive for CD23 and negative for FMC-7. IHC demonstrated dim CD20 as well as strong CD43 and BCL-2. The cells were negative for CD5, CD10, CD3, BCL-6, BRAF, and CD21. The MYD-88 mutation was not detected. The findings were felt to be diagnostic of a small B-cell lymphoma. CT scans of the chest, abdomen, and pelvis on 03/15/2016 showed the large right renal mass measuring 10.5 x 8.4 x 8.7 cm, similar to the prior PET/CT. Left supraclavicular, AP window, mesenteric, and retroperitoneal lymphadenopathy were present on the prior PET CT from 12/04/2015 and were FDG negative. Also noted was a 5 mm spiculated nodule in the right middle lobe and additional 2 mm scattered noncalcified nodules in the left upper lobe. With those findings, he was seen by Dr. Mamadou Alvarado at [facility] for a second opinion evaluation. Evaluation included biopsy of the right renal mass, which did confirm involvement with lymphoma. He was recommended to continue treatment with a course of chemotherapy with bendamustine/Rituxan. He began cycle 1 of bendamustine/Rituxan on 04/21/2016. He was able to continue with cycle 2 on 05/19/2016 and with cycle 3 on 06/20/2016. The third cycle was delayed due to prolonged but not severe neutropenia. He was given Neulasta prophylactically with that cycle. He tolerated the treatment well, but there was still no improvement in his anemia. Restaging CT of the abdomen/pelvis on 07/19/2016 showed resolution of mesenteric and retroperitoneal lymphadenopathy, but no significant change in the complex right renal mass, measuring 10.5 x 8.7 x 9.2 cm. The spleen was still slightly enlarged. Repeat bone marrow aspiration/biopsy on 08/02/2016 showed persistent hypercellularity, estimated at 95-100%. Flow cytometry still showed evidence of a monoclonal B-cell population, but it accounted for only 1-2% of the marrow cellularity. Plasma cells were estimated at 10-20% with kappa light chain predominance, suggestive of plasma cell dyscrasia. Repeat protein electrophoresis showed persistent IgG kappa monoclonal protein, increased to 1.57 g/dL compared to 0.86 g/dL on 03/27/2016. The free kappa light chain was elevated at 753 mg/L with the kappa/lambda ration elevated at 70.64. A random urine showed a protein concentration of 8 mg/dL, 5.1% of which was monoclonal protein. Skeletal survey showed no lytic bone involvement. He returned to [facility] and he was seen by Dr. Jared Escobar on 10/16/2016. On their review of the bone marrow it was felt that the kappa restricted [id number] cells comprised 20 to 25% of the marrow aspirate, and he was recommended to begin treatment with KRd or VRd pending outcome of repeat bone marrow aspiration/biopsy and repeat staging PET/CT. PET/CT on 10/26/2016 showed FDG avid mixed cystic and solid right renal mass, SUV 2.1. A mildly prominent periaortic lymph node measuring 1.3 x 0.9 cm showed low-level uptake, SUV 2.7. A normal sized subcarinal lymph node showed mild hypermetabolism, SUV 2.5. There was no evidence of osseous involvement with myeloma. There was an abnormal focus of hypermetabolism within the left frontal cortex of the brain with maximum SUV 5.7, highly suspicious for neoplastic process. Further evaluation with brain MRI on 10/31/2016 showed numerous enhancing intraparenchymal metastatic lesions, estimated at 10-12 in number, the largest in the left frontal lobe measuring 2.1 cm. He returned to [facility] where he was admitted to the hospital and then completed additional evaluation with lumbar puncture and biopsy of the left frontal lobe mass. During that time he was transfused a total of 4 units of PRBC. He was discharged home on dexamethasone and Keppra. Pathology ultimately was nondiagnostic. During subsequent follow-up, he was tapered off dexamethasone. He then returned to [facility] and he underwent left frontal craniotomy with open biopsy of the left frontal lobe lesion. Pathology showed metastatic clear cell carcinoma consistent with renal primary. On 05/03/2017 he underwent right laparoscopic radical nephrectomy at [facility]. His tumor was noted to be locally advanced, with extension to the renal sinus, but it was completely resected. Pathology showed renal cell carcinoma measuring 9.5 cm, clear-cell type, WHO/ISUP grade 2. There was invasion of the renal sinus, but resection margins were uninvolved. There were no lymph nodes included in the specimen. Pathologic staging was pT3a, Nx. A noncontrast head CT on 06/07/2017 reported new multiple 5 mm hyperdense foci within the brain, but without a significant amount of surrounding edema or mass effect. He required further transfusions of packed red blood cells on 06/07/2017, on 07/03/2017, and on 07/19/2017. He had follow-up with Dr. Dereje Jones at [facility] on 07/24/2017. His repeat MRI at that time showed no evidence of recurrence within the left tumor cavity. The left posterior frontal treated lesion was noted to have less peritumoral edema and slightly less enhancement. The left insular tumor was difficult to detect, and the right posterior temporal tumors appeared approximately the same without any clear enhancement. Overall, it was felt that his brain lesions appeared adequately treated and with no new lesions identified. He was recommended to return for follow-up in 3 months. Restaging PET/CT on 08/11/2017 showed abnormal activity in the left supraclavicular lymph node, SUV 2.9. A 1 cm left superior mediastinal lymph node was FDG avid, SUV 4.4. A subcarinal lymph node measuring 1.5 cm was FDG avid with SUV 7.5 and a 1.5 cm right retrocrural node at the level of the diaphragmatic hiatus was noted to have mild abnormal FDG activity. Other small subcentimeter retroperitoneal lymph nodes showed no significant FDG activity. Multiple hepatic hypodensities were noted to be FDG negative and unchanged from the prior study in November 2015. There was no evidence of other metastatic disease. On 08/16/2017 he underwent repeat bone marrow aspiration/biopsy and biopsy of a left posterior cervical lymph node. Pathology on the lymph node showed small B-cell lymphoma with plasmacytic differentiation. The malignant cells were positive for CD45, CD19, CD20, CD23, and kappa light chain. They were negative for CD5, CD10, and FMC7. The reported differential included CD5 negative SLL/CLL versus marginal zone lymphoma. The bone marrow aspiration/biopsy was hypercellular with 100% cellularity. There was mild reticulin fibrosis noted. There were no overt dysplastic changes. There was no obvious infiltrative process identified. The flow cytometry demonstrated predominantly mature granulocytes. There were only rare polytypic B cells noted without aberrant antigen expression. There was no increase in CD34 positive blasts, CD117 positive immature precursors, or plasma cells. The FISH panels for myeloma and MDS were unrevealing, and the standard cytogenetic study was normal. Overall, the bone marrow was hypercellular but otherwise nondiagnostic. Given those findings, I had opted to just continue with observation and symptomatic/supportive measures. He remained transfusion dependent. His laboratory studies did show evidence of transfusion associated iron overload, and he then started treatment with Jadenu 14 mg/kg daily. A repeat brain MRI on 10/23/2017 showed postoperative changes of interval left frontal craniotomy with resection cavity and a small amount of surrounding glioma doses. A 5 mm enhancing lesion in the left posterior frontal lobe was felt to be new. There was associated small amount of surrounding edema and hemosiderin. The previously described enhancing lesions had showed interval resolution. There was interval significant improvement in the previously described edema. However, during follow-up he remained transfusion dependent, and there was gradual increase in his M protein. Restaging PET/CT on 02/02/2018 showed decrease in the left supraclavicular and left superior mediastinal lymph nodes which had been noted on the prior study. A 1.5 cm subcarinal lymph node appeared stable, SUV 8.8. There was progression of right retrocrural node and there was a new portal lymph node measuring 1.4 cm. Also noted were new bilateral retroperitoneal lymph nodes in the right and left periaortic chair territories. These were consistent with disease progression. In February 2017 he underwent reevaluation with Dr. Jared Escobar at [facility]. His repeat bone marrow aspiration/biopsy on 03/08/2018 showed extensive involvement with recurrent/persistent B-cell lymphoma, estimated at greater than 70% involvement. The morphologic and immunophenotypic features were felt to be most consistent with a B-cell lymphoma with plasmacytic differentiation. Also noted was a kappa restricted plasma cell population comprising 10% of the marrow cellularity. With those findings, it was recommended that he begin a course of chemotherapy with cyclophosphamide/Velcade/dexamethasone. His past medical history is unremarkable. He has had no prior medical illnesses. His only other surgery was a hernia repair. He is a nonsmoker. INTERIM HISTORY: He began cycle 1 of cyclophosphamide/Velcade/dexamethasone on 04/08/2018. He also started weekly Procrit injections for the anemia. He tolerated the treatment well and he was able to continue with cycle 2 on 04/29/2018. His cycle 2 day 8 cyclophosphamide and his day 11 Velcade were held and his cycle 3 was delayed due to neutropenia. He was able to continue with cycle 3 on 05/27/2018. It was again complicated by neutropenia, and that cycle was limited to day 1 cyclophosphamide and day 1/day 4 Velcade. During this time he continued Procrit injections weekly. He had remained transfusion dependent, though not as frequently. His repeat protein electrophoresis on 06/17/2018 showed stable M protein at 3.1 g/dL. He continued with cycle 4 of cyclophosphamide/Velcade/dexamethasone on 06/24/2018, with cycle 5 on 07/16/2018, and with cycle 6 on 08/05/2018. Repeat bone marrow aspiration/biopsy on 08/29/2018 showed hypercellular marrow at 100% cellularity with an atypical lymphoid proliferation comprising 70-75% of the hematopoietic population. Flow cytometry showed a monotypic B-cell population comprising 10% of the total cellularity. The B cells were positive for CD45, CD19, CD20, CD23, and kappa light chain. They were negative for CD5, CD10, and FMC7. Nucleated RBCs were noted to be markedly decreased and relative number. There was limited dyserythropoiesis. Ring sideroblasts were noted to comprise 10% of the population. 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 The FISH panel was positive for IGH gain ( trisomy for chromosomes 14 q/14 or IGH rearrangement). Restaging PET/CT on 08/31/2018 showed unchanged subcarinal mediastinal lymph node and interval development of new prevascular lymph node. There was interval progression of existing and development of new abdominal malignant adenopathy. Also noted was a new 5 mm right apical pulmonary nodule with SUV 3.7, suspicious for malignancy. On 09/09/2018 he was hospitalized with pneumonia. He had very gradual recovery following that illness, and during subsequent follow-up he remained transfusion dependent. He also has continued to have severe neutropenia, and his further chemotherapy has remain on hold. During this time he was treated with Neupogen, and he did show response, but his neutrophil count had then gradually declined again. I had seen him for a follow-up visit on 11/19/2018. At that point I had recommended a trial of therapy with venetoclax together with Neupogen or Neulasta. We were able to get insurance approval for the venetoclax, but not the growth factor. He had opted, though, to delay starting treatment until after deer hunting season. During that time, he continued to require PRBC transfusion on a regular basis. Sometime near the end of November he had fallen at home and sustained an injury to his left rib cage. Due to persistent pain in that area and to the delay in starting his treatment, I had recommended that he have restaging CT scans. His CT scans of the chest, abdomen, and pelvis on 01/27/2019 showed long-term stability of an irregular 5 mm pulmonary nodule in the right middle lobe. A right apical lymph node was no longer present. Left upper pneumonia appeared to have resolved. There was persistent small left pleural effusion but resolution of right pleural effusion. There were numerous small axillary, mediastinal, and hilar lymph nodes, largest in the subcarinal area measuring 2.5 x 2.0 cm. There were numerous left-sided rib fractures. The spleen was noted to be enlarged measuring 17.3 cm. Low-attenuation throughout the liver felt to be compatible with cysts. There appeared to be increasing size and number of retrocrural, mesenteric, and retroperitoneal adenopathy, but the increase was in the range of 2 to 3 mm in diameter. On 01/29/2019 he started treatment with venetoclax at 20 mg daily. I also had him start prednisone 20 mg daily. He tolerated the low dosage with no adverse effects, and he has since then continued to escalate the dosage per the standard protocol. As of 02/17/2019 he had persistent but stable neutropenia. He had remained transfusion dependent. As of 02/19/2019 is venetoclax dosage was increased to 200 mg daily. He is seen for a follow-up visit. He has been feeling a little better generally. He still has fatigue, but he has been able to do some light work. ECOG score is 1. His appetite has been pretty good on the prednisone. He does not have fever or night sweats. He does have some sinus drainage and cough, and he also has had some sore throat and hoarseness. He has some shortness of breath with activity. He does not complain of chest pain. He has no GI/ complaints other than some occasional heartburn. He still has soreness in his left rib cage, but it is getting better now. He has only occasional mild headache. He has had some orthostatic lightheadedness. He has no focal neurologic symptoms. Medications: Acetaminophen 1 (325 mg) Tablet Oral q 4 hours PRN, Acyclovir 1 Tablet (of 400 mg) Oral daily, Jadenu 1 Tablet (of 1620 mg) Oral daily, Levaquin 500 (500 mg) Tablet Oral PRN, Lyrica 2 Capsule (of 50 mg) Oral b.i.d., Multivitamin 1 Tablet Liquid Oral daily PRN, Pantoprazole Sodium 1 Tablet (of 40 mg) Tablet, enteric coated Oral daily PRN, predniSONE 20 mg (of 20 mg) Tablet Oral daily, Prochlorperazine Maleate 1 Tablet (of 10 mg) Oral q 4 hours PRN, Tamsulosin HCl 2 (0.4 mg) Capsule Oral at bedtime, vendexta 400 mg Tablet daily, Voltaren Gel (jelly) Transdermal PRN Allergies: No Known Allergies. Review of Systems: Constitutional - His energy has been getting better. He has limited activity, but he is doing some light work. His appetite has been better with prednisone. No fever or night sweats. ECOG score is 1, ENMT - He has some sinus drainage. No mouth sores. He recently has had sore throat. No difficulty swallowing, Hematologic/Lymphatic - He has some bruising. No other bleeding, Respiratory - He has shortness of breath with activity. He has nonproductive cough. The pain in his left rib cage is getting better. No hemoptysis, Cardiovascular - No angina pain. No palpitations, Gastrointestinal - No nausea or vomiting. He has a little bit of heartburn. No diarrhea or constipation. No blood in the stool or black stools, Genitourinary (M) - No dysuria or hematuria. No urinary frequency. No urgency or incontinence, Musculoskeletal - He has no other joint or bone pain, Integumentary - No skin complications, Neurologic - He has just occasional mild headaches. He has had some orthostatic lightheadedness. No numbness/paresthesias or other focal neurologic symptoms, Psychiatric - No anxiety or depression. No insomnia. Vital Signs: Performed on Feb 21, 2019 09:19 Height - 73.00 in Weight - 150.0 lbs (HIGH) BSA - 1.90 sq.m BMI - 19.79 Temperature - 97.7 F (LOW) Pulse - 85 /min Respiration - 12 /min BP - 95/59 mm(hg) O2 Sat - 95 % (LOW) Pain - 0 Fatigue - 5 Physical Examination: Constitutional - He looks a little better generally, Eyes - Sclerae nonicteric. Conjunctivae clear, ENMT - The lesion near the tip of his tongue has not resolved, but the overlying mucosa has a more normal appearance. There are no other lesions noted in the oral cavity, Hematologic/Lymphatic - I do not feel any cervical, clavicular, or axillary adenopathy, Respiratory - Lungs sound clear, Cardiovascular - Heart rhythm is regular. There is a II/ systolic murmur. There is no gallop or rub noted, Abdomen - Soft. Liver is not enlarged. Spleen is not palpable. There is no abdominal mass or ascites noted. There are small inguinal lymph nodes bilaterally, Extremities - No edema, Neurologic - No focal neurologic deficits noted. Lab/Imaging: Test performed on Feb 20, 2019 07:05 Uric Acid 4.1 mg/dL Glucose 113 mg/dL LDH, Total 138 IU/L BUN 33 mg/dL Creatinine 1.2 mg/dL Cr Clearance (Est) 56.15 mL/min Sodium 129 mmol/L Potassium 5.0 mmol/L Chloride 99 mmol/L CO2 20 mmol/L Calcium 8.4 mg/dL Protein, Total 7.6 g/dL Albumin 2.4 g/dL Globulin 5.2 g/dL Bilirubin, Total 0.5 mg/dL Alkaline Phosphatase 82 IU/L AST (SGOT) 12 IU/L ALT (SGPT) 12 IU/L WBC 0.8 10^9/L RBC 2.56 10^12/L HGB 7.3 g/dL HCT 22.5 % MCV 87.9 fl MCH 28.5 pg MCHC 32.4 g/dL RDW 14.1 % Platelet Count 123 10^9/L MPV 10.6 fL Neutrophils (Gran) 0.5 10^9/L Lymphocytes 0.2 10^9/L Monocytes 0.0 10^9/L Eosinophils 0.0 10^9/L Basophils 0.0 10^9/L Manual Lymphocytes 20.3 % Manual Monocytes 1.3 % Manual Eosinophils 0.0 % Manual Basophils 0.0 % Impression: 1. Patient with multiple malignancies including marginal zone lymphoma, stage IV renal cell carcinoma, and suspected myeloma. 2. He had initially presented in October 2015 with anemia and IgG kappa monoclonal gammopathy. 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 He also was found to have a large right renal mass. He underwent treatment with 6 weekly infusions of rituximab, completed on 01/20/2016. 3. Repeat bone marrow aspiration/biopsy on 02/23/2016 again showed 100% cellularity with complete effacement by a lymphoid proliferation. 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 4. He then had a second opinion evaluation with Dr. Mamadou Alvarado at [facility]. His evaluation there had included biopsy the right renal mass, with pathology reporting involvement with lymphoma. He was advised to continue treatment with a course of bendamustine/Rituxan chemotherapy, which began on 04/21/2016. He completed 3 cycles of treatment. He had prolonged but not severe neutropenia after the second cycle, and he did receive Neulasta prophylaxis with cycle 3. He tolerated the treatment well otherwise. However, he remained moderately anemic. His restaging CT abdomen/pelvis on 07/19/2016 showed resolution of the small mesenteric and retroperitoneal lymph nodes, but no significant change in the right renal mass. 5. His repeat bone marrow aspiration/biopsy on 08/02/2016 showed only a small amount of residual monoclonal B cells, estimated at 1-2% of the marrow cellularity. [place] restricted plasma cells were estimated at 20-25% of the cellularity, suspicious for plasma cell dyscrasia. His repeat protein electrophoresis showed an increase in his M protein to 1.57 g/dL. Skeletal survey showed no evidence of lytic bone involvement. Overall, the findings were felt to be consistent with myeloma. 6. He underwent left frontal craniotomy with excision of brain metastasis on 03/14/2017, pathology consistent with metastatic renal cell carcinoma. He underwent gamma knife radiosurgery to 4 additional brain lesions. 7. He underwent cytoreductive right laparoscopic radical nephrectomy on 05/03/2017. Pathology showed grade 2 renal cell carcinoma measuring 9.5 cm, clear cell type, pathologic stage T3a, NX. Since his initial presentation in October 2015 he has remained moderately anemic and transfusion dependent. The exact cause of the anemia remains uncertain, but it has not improved with treatment for the lymphoma or with surgical resection of the renal cell carcinoma. His follow-up brain MRI showed evidence of treated brain lesions and no indication of progression of metastatic disease in the brain. His restaging PET/CT on 08/11/2017 showed FDG avid lymph nodes at several sites, including the left supraclavicular area, superior mediastinum, subcarinal area, and retrocrural area. The largest of these measured 1.5 cm. There were no other areas of metastatic involvement noted. He underwent repeat bone marrow aspiration/biopsy and left cervical lymph node biopsy on 08/16/2017. 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 The bone marrow aspiration/biopsy was hypercellular, but with no diagnostic findings. There was a small amount of reticulin fibrosis noted. There was no increase in plasma cells and there was no evidence of lymphoma in the bone marrow. There also was no evidence of myelodysplastic syndrome. When those findings, I opted to follow him on observation and symptomatic/supportive measures. In August 2017 he began treatment with Jadenu 14 mg/kg daily for transfusion associated iron overload. His repeat head MRI on 10/23/2017 reported a new 5 mm lesion in the left posterior frontal lobe with a small amount of surrounding edema. All of the lesions which had been previously treated showed significant improvement. During subsequent follow-up he has remained transfusion dependent. He has started treatment with Jadenu for transfusion associated iron overload. His overall clinical status has been stable, but there was gradual increase in his M protein. Restaging PET/CT in January 2018 showed mild progression of lymphadenopathy, mainly in the carleen hepatis and retroperitoneal area. His repeat bone marrow aspiration/biopsy on 03/08/2018 showed extensive involvement with B-cell lymphoma, estimated at greater than 70% involvement. 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 Also noted was a kappa restricted plasma cell population estimated at 10% of the cellularity. On 04/08/2018 he began a course of treatment with cyclophosphamide, Velcade, and dexamethasone. He also started Procrit injections, and he was started on Jadenu for transfusion associated iron overload. His cycle 2 day 8 cyclophosphamide was held due to neutropenia. His cycle 3 was delayed by 1 week because his granulocyte count remained low, and that cycle was limited to just day 1 cyclophosphamide and day 1/day 4 Velcade. He continued with cycle 4 of cyclophosphamide/Velcade/dexamethasone on 06/24/2018, with cycle 5 on 07/16/2018, and with cycle 6 on 08/05/2018. His restaging bone marrow aspiration/biopsy 08/29/2018 showed 100% cellularity with 70-75% atypical lymphocytes, consistent with residual lymphoma. 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 There also was evidence of disease progression on his restaging PET/CT. On 09/09/2018 he was admitted to the hospital with pneumonia. He has been showing gradual recovery, but during this time he had a significant decline in his performance status. He remained transfusion dependent anemia, and he had moderately severe neutropenia and thrombocytopenia. In September 2018 he began trial of therapy with ibrutinib 420 mg daily. Within a short time he had become severely neutropenic, and the ibrutinib was put on hold. He subsequently did show some response to Neupogen, but with subsequant decline in the neutrophil count. He was then recommended to have a trial of therapy with venetoclax in combination with Neupogen or Neulasta. We were able to get approval for the venetoclax, but not the growth inhibitor. He had opted to put off the treatment until after hunting . During follow-up he continued to have transfusion dependent anemia and a very significant IgG kappa monoclonal protein spike. He had a continued gradual decline in performance status. He fell at home and sustained multiple left rib fractures. His restaging CT scans on showed some progression of lymphadenopathy, though still not bulky. With evidence of disease progression and with declining performance status, I opted to have him begin treatment with venetoclax/rituximab. He began the venetoclax on 01/29/2019 and a dose of 20 mg daily. At that time I also had him start prednisone 20 mg daily. He was able to tolerate the low dosage of venetoclax with no adverse effects, and he then continued escalating the dosage per the standard protocol. As of 02/17/2019 he had continued to have moderately severe but stable neutropenia. He had also remained transfusion dependent. As of 02/19/2019 the venetoclax dosage was increased to 200 mg daily. Since then there has been a significant decrease in the neutrophil count, which is almost certainly treatment related. He otherwise seems to be tolerating it well, and he actually has been feeling a little better generally. There has been a significant decrease in his total protein, which I am hoping is an indication of response. Plan: He will continue with his venetoclax dose escalation per protocol. As of next week he will be up to the full dosage of 400 mg daily. In 2 weeks he will be due to begin his first infusion of rituximab. He will have a repeat CBC on Sunday. If there is further decrease in the neutrophil count, I will add Neupogen. In the meantime, I also will have him start antibiotic coverage with Levaquin 500 mg daily. Signed By: Ulysses Lazo M.D. <<Signature on File>>
[2019-02-28] MEDS: sodium chloride 0.9% 250 ML 999 ML IV (08:30)
[2019-03-03 15:54] LABS: Hematocrit 26.1 % (42.0-52.0); Hemoglobin 8.5 g/dL (11.7-16.6); Lymphocytes # 0.2 10^3/uL (0.8-4.8); Lymphocytes % 22.7 %; Mean Corpuscular HGB Conc 32.6 g/dL (30.0-36.0); Mean Corpuscular Hemoglobin 28.2 pg (28.0-34.0); Mean Corpuscular Volume 86.7 fL (80-94); Mean Platelet Volume 10.8 fL (7.4-10.4); Monocytes % 1.5 %; Nucleated Red Blood Cells % 0 %; Platelet Count 129 10^3/cmm (130-400); Red Blood Count 3.01 10^6/uL (4.1-5.3); Red Cell Distribution Width 14.4 % (12.1-15.1)
[2019-03-03 16:10] LABS: Immunofixation, Serum NR
[2019-03-03 16:58] LABS: Alanine Aminotransferase 8 U/L (0-41); Albumin Level 2.6 g/dL (3.5-5.2); Alkaline Phosphatase 97 IU/L (40-130); Anion Gap 14.4 (5-19); Aspartate Amino Transferase 10 U/L (0-40); Blood Urea Nitrogen 23 mg/dL (8-23); Calcium 8.7 mg/Dl (8.8-10.2); Carbon Dioxide 21 mmol/L (22-29); Chloride 97 mmol/L (98-107); Globulin 4.5 g/dL (1.3-4.6); Glucose 142 mg/dL (74-106); Lactate Dehydrogenase 107 U/L (135-225); Potassium 4.4 mmol/L (3.5-5.1); Sodium 128 mmol/L (136-145); Total Bilirubin 0.5 mg/dL (0.15-1.2); Total Protein 7.1 g/dL (6.6-8.7); Uric Acid 2.2 mg/dL (3.4-7.0)
[2019-03-03 21:51] LABS: Neutrophils % 75.8 %
[2019-03-03 21:52] LABS: Slide Review Slide Review Perform
[2019-03-03 21:54] LABS: Neutrophils # 0.4 10^3/uL (1.8-7.7); White Blood Count 0.7 10^3/uL (4.0-10.0)
[2019-03-05 16:06] LABS: ABNORMAL PROTEIN BAND 1 1.7 g/dL (NONE DETECTED); ALBUMIN 2.2 g/dL (3.8-4.8); ALPHA 1 GLOBULIN 0.7 g/dL (0.2-0.3); ALPHA 2 GLOBULIN 0.9 g/dL (0.5-0.9); BETA 1 GLOBULIN 0.3 g/dL (0.4-0.6); BETA 2 GLOBULIN 0.3 g/dL (0.2-0.5); GAMMA GLOBULIN 2.1 g/dL (0.8-1.7); KAPPA LIGHT CHAIN, FREE, SERUM 672.3 mg/L (3.3-19.4); KAPPA/LAMBDA LIGHT CHAINS FREE 52.94 (0.26-1.65); LAMBDA LIGHT CHAIN, FREE, SERU 12.7 mg/L (5.7-26.3); PROTEIN, TOTAL 6.5 g/dL (6.1-8.1)
[2019-03-06 08:55] LABS: Hematocrit 22.8 % (42.0-52.0); Hemoglobin 7.5 g/dL (11.7-16.6); Lymphocytes # 0.2 10^3/uL (0.8-4.8); Mean Corpuscular HGB Conc 32.9 g/dL (30.0-36.0); Mean Corpuscular Hemoglobin 28.5 pg (28.0-34.0); Mean Corpuscular Volume 86.7 fL (80-94); Mean Platelet Volume 10.2 fL (7.4-10.4); Monocytes % 4.4 %; Neutrophils % 53.4 %; Nucleated Red Blood Cells % 0 %; Platelet Count 134 10^3/cmm (130-400); Red Blood Count 2.63 10^6/uL (4.1-5.3); Red Cell Distribution Width 14.1 % (12.1-15.1)
[2019-03-06 09:48] LABS: Neutrophils # 0.2 10^3/uL (1.8-7.7); Slide Review Slide Review Perform; White Blood Count 0.5 10^3/uL (4.0-10.0)
[2019-03-07] VITALS (9 sets, daily range): BP systolic 95–123; BP diastolic 61–67; PULSE 76–96; RESP 16; TEMP 36.8–36.9; O2SAT 95–99
[2019-03-07] MEDS: sodium chloride 0.9% 250 ML 999 ML IV (08:35)
[2019-03-08 08:38] VITALS: BP 97/72; PULSE 94; RESP 18; TEMP 37.1; O2SAT 98; BMI 20.4
[2019-03-09 06:46] VITALS: BP 99/66; PULSE 94; RESP 18; TEMP 36.7; O2SAT 99
[2019-03-13] MEDS: sodium chloride 0.9% 1,000 ML 100 ML IV (10:01)
[2019-03-13] MEDS: acetaminophen 325 mg Tablet 650 MG PO (10:01)
[2019-03-17 15:37] LABS: Basophils % 0.1 %; Hematocrit 25.1 % (42.0-52.0); Lymphocytes # 0.3 10^3/uL (0.8-4.8); Lymphocytes % 4.7 %; Mean Corpuscular HGB Conc 31.9 g/dL (30.0-36.0); Mean Corpuscular Hemoglobin 28.1 pg (28.0-34.0); Mean Corpuscular Volume 88.1 fL (80-94); Mean Platelet Volume 9.4 fL (7.4-10.4); Monocytes # 0.2 10^3/uL (0.2-0.9); Monocytes % 2.8 %; Neutrophils # 6.6 10^3/uL (1.8-7.7); Neutrophils % 91.2 %; Nucleated Red Blood Cells % 0 %; Platelet Count 303 10^3/cmm (130-400); Red Blood Count 2.85 10^6/uL (4.1-5.3); White Blood Count 7.2 10^3/uL (4.0-10.0)
[2019-03-18] VITALS (7 sets, daily range): BP systolic 92–996; BP diastolic 57–67; PULSE 61–73; RESP 18; TEMP 36.6–36.9; O2SAT 96–98
[2019-03-18] MEDS: sodium chloride 0.9% 100 ML 99 ML (14:05)
[2019-03-18] MEDS: sodium chloride 0.9% 250 ML 999 ML IV (14:16)
[2019-03-19 09:54] LABS: Basophils % 0.2 %; Hematocrit 28.4 % (42.0-52.0); Hemoglobin 9.6 g/dL (11.7-16.6); Lymphocytes # 0.3 10^3/uL (0.8-4.8); Lymphocytes % 4.5 %; Mean Corpuscular HGB Conc 33.8 g/dL (30.0-36.0); Mean Corpuscular Volume 82.8 fL (80-94); Mean Platelet Volume 9.2 fL (7.4-10.4); Monocytes # 0.3 10^3/uL (0.2-0.9); Neutrophils # 4.9 10^3/uL (1.8-7.7); Neutrophils % 88.2 %; Nucleated Red Blood Cells % 0 %; Platelet Count 314 10^3/cmm (130-400); Red Blood Count 3.43 10^6/uL (4.1-5.3); Red Cell Distribution Width 13.8 % (12.1-15.1); White Blood Count 5.5 10^3/uL (4.0-10.0)
== END 2019-03-21 23:59 | disposition home or self-care (01) ==
LOC: ONCMED 07:10
PROVIDERS: Visit Provider Internal Medicine Medical Oncology
DX: Z51.12 Encounter for antineoplastic immunotherapy (principal); C83.08 Small cell B-cell lymphoma, lymph nodes of multiple sites; D70.1 Agranulocytosis secondary to cancer chemotherapy; T45.1X5A Adverse effect of antineoplastic and immunosuppressive drugs, initial encounter; C64.1 Malignant neoplasm of right kidney, except renal pelvis; C79.31 Secondary malignant neoplasm of brain; R91.1 Solitary pulmonary nodule; Z90.5 Acquired absence of kidney; Z87.01 Personal history of pneumonia (recurrent); Z91.81 History of falling; Z79.899 Other long term (current) drug therapy; Z79.52 Long term (current) use of systemic steroids
CPT/HCPCS: 36415; 36430; 80053; 83615; 83883; 84155; 84165; 84550; 85025; 86850; 86900; 96372; 99211; 99214; J1200; J1442; J7030; J7040; J7050; J9312; P9040

== ENCOUNTER 2019-04-17 07:15 | Outpatient (RCR) | payer OTHER, MEDICARE, SELFPAY ==
[2019-03-24 14:53] LABS: Basophils % 0.6 %; Hematocrit 25.3 % (42.0-52.0); Hemoglobin 8.1 g/dL (11.7-16.6); Lymphocytes # 0.2 10^3/uL (0.8-4.8); Lymphocytes % 14.3 %; Mean Corpuscular Hemoglobin 28.3 pg (28.0-34.0); Mean Corpuscular Volume 88.5 fL (80-94); Mean Platelet Volume 9.5 fL (7.4-10.4); Monocytes # 0.3 10^3/uL (0.2-0.9); Monocytes % 19.3 %; Nucleated Red Blood Cells % 0 %; Platelet Count 319 10^3/cmm (130-400); Red Blood Count 2.86 10^6/uL (4.1-5.3); White Blood Count 1.6 10^3/uL (4.0-10.0)
[2019-03-24 15:20] LABS: Slide Review Slide Review Perform
[2019-03-25] VITALS (11 sets, daily range): BP systolic 100–111; BP diastolic 51–68; PULSE 66–88; RESP 18; TEMP 36.8–37.2; O2SAT 95–98
[2019-03-25] MEDS: sodium chloride 0.9% 250 ML 999 ML IV (16:18)
[2019-03-27 10:49] LABS: Basophils % 0.6 %; Hematocrit 30.6 % (42.0-52.0); Hemoglobin 10.2 g/dL (11.7-16.6); Lymphocytes # 0.3 10^3/uL (0.8-4.8); Lymphocytes % 9.7 %; Mean Corpuscular HGB Conc 33.3 g/dL (30.0-36.0); Mean Corpuscular Hemoglobin 29.2 pg (28.0-34.0); Mean Corpuscular Volume 87.7 fL (80-94); Mean Platelet Volume 9.3 fL (7.4-10.4); Monocytes # 0.5 10^3/uL (0.2-0.9); Monocytes % 13.3 %; Neutrophils # 2.4 10^3/uL (1.8-7.7); Neutrophils % 69.3 %; Nucleated Red Blood Cells % 0 %; Platelet Count 338 10^3/cmm (130-400); Red Blood Count 3.49 10^6/uL (4.1-5.3); Red Cell Distribution Width 14.1 % (12.1-15.1); White Blood Count 3.4 10^3/uL (4.0-10.0)
[2019-03-27 11:31] LABS: Slide Review Slide Review Perform
[2019-03-31 14:50] LABS: Basophils % 0.2 %; Hematocrit 29.3 % (42.0-52.0); Hemoglobin 9.5 g/dL (11.7-16.6); Lymphocytes # 0.4 10^3/uL (0.8-4.8); Lymphocytes % 7.6 %; Mean Corpuscular HGB Conc 32.4 g/dL (30.0-36.0); Mean Corpuscular Volume 89.3 fL (80-94); Mean Platelet Volume 9.6 fL (7.4-10.4); Monocytes # 0.4 10^3/uL (0.2-0.9); Monocytes % 6.4 %; Neutrophils # 4.3 10^3/uL (1.8-7.7); Neutrophils % 78.4 %; Nucleated Red Blood Cells % 0 %; Platelet Count 309 10^3/cmm (130-400); Red Blood Count 3.28 10^6/uL (4.1-5.3); Red Cell Distribution Width 14.6 % (12.1-15.1); White Blood Count 5.5 10^3/uL (4.0-10.0)
[2019-03-31 15:21] LABS: Slide Review Slide Review Perform
[2019-04-03 09:45] LABS: Basophils % 0.1 %; Hematocrit 26.4 % (42.0-52.0); Hemoglobin 8.7 g/dL (11.7-16.6); Lymphocytes # 0.3 10^3/uL (0.8-4.8); Mean Corpuscular Hemoglobin 28.2 pg (28.0-34.0); Mean Corpuscular Volume 85.7 fL (80-94); Mean Platelet Volume 9.6 fL (7.4-10.4); Monocytes # 0.4 10^3/uL (0.2-0.9); Monocytes % 4.6 %; Neutrophils # 7.1 10^3/uL (1.8-7.7); Neutrophils % 86.8 %; Nucleated Red Blood Cells % 0 %; Platelet Count 300 10^3/cmm (130-400); Red Blood Count 3.08 10^6/uL (4.1-5.3); Red Cell Distribution Width 14.6 % (12.1-15.1); White Blood Count 8.2 10^3/uL (4.0-10.0)
[2019-04-07 08:14] LABS: Basophils % 0.2 %; Hematocrit 25.3 % (42.0-52.0); Hemoglobin 8.2 g/dL (11.7-16.6); Lymphocytes # 0.5 10^3/uL (0.8-4.8); Mean Corpuscular HGB Conc 32.4 g/dL (30.0-36.0); Mean Corpuscular Hemoglobin 28.9 pg (28.0-34.0); Mean Corpuscular Volume 89.1 fL (80-94); Mean Platelet Volume 9.4 fL (7.4-10.4); Monocytes # 0.4 10^3/uL (0.2-0.9); Monocytes % 6.3 %; Neutrophils # 4.5 10^3/uL (1.8-7.7); Neutrophils % 79.6 %; Nucleated Red Blood Cells % 0 %; Platelet Count 284 10^3/cmm (130-400); Red Blood Count 2.84 10^6/uL (4.1-5.3); Red Cell Distribution Width 14.3 % (12.1-15.1); White Blood Count 5.6 10^3/uL (4.0-10.0)
[2019-04-08] VITALS (8 sets, daily range): BP systolic 94–116; BP diastolic 63–68; PULSE 65–78; RESP 18; TEMP 36.4–37.2; O2SAT 94–96
[2019-04-08] MEDS: sodium chloride 0.9% 250 ML 999 ML IV (08:45)
[2019-04-10] MEDS: sodium chloride 0.9% 1,000 ML 999 ML IV (08:35)
[2019-04-10 08:59] LABS: Basophils % 0.2 %; Hematocrit 27.9 % (42.0-52.0); Hemoglobin 9.3 g/dL (11.7-16.6); Lymphocytes # 0.2 10^3/uL (0.8-4.8); Lymphocytes % 3.2 %; Mean Corpuscular HGB Conc 33.3 g/dL (30.0-36.0); Mean Corpuscular Hemoglobin 27.8 pg (28.0-34.0); Mean Corpuscular Volume 83.5 fL (80-94); Mean Platelet Volume 9.3 fL (7.4-10.4); Monocytes # 0.3 10^3/uL (0.2-0.9); Monocytes % 4.3 %; Neutrophils % 85.5 %; Nucleated Red Blood Cells % 0 %; Platelet Count 264 10^3/cmm (130-400); Red Blood Count 3.34 10^6/uL (4.1-5.3); Red Cell Distribution Width 14.1 % (12.1-15.1); White Blood Count 5.9 10^3/uL (4.0-10.0)
[2019-04-10 09:10] LABS: Alanine Aminotransferase 7 U/L (0-41); Albumin Level 2.8 g/dL (3.5-5.2); Alkaline Phosphatase 106 IU/L (40-130); Anion Gap 17.5 (5-19); Aspartate Amino Transferase 11 U/L (0-40); Blood Urea Nitrogen 25 mg/dL (8-23); Calcium 9.3 mg/dL (8.5-10.5); Carbon Dioxide 22 mmol/L (22-29); Chloride 96 mmol/L (98-107); Glucose 138 mg/dL (65-115); Iron 217 ug/dL (59-158); Percent Saturation 38.4 % (20-50); Potassium 4.5 mmol/L (3.5-5.1); Sodium 131 mmol/L (136-145); Total Bilirubin 0.7 mg/dL (0.15-1.2); Total Iron Binding Capacity 565 mcg/dl; Total Protein 7.8 g/dL (6.6-8.7); Unsaturated Iron Binding 348 ug/dL (112-347)
[2019-04-10 09:15] LABS: Slide Review Slide Review Perform
[2019-04-10] MEDS: acetaminophen 325 mg Tablet 650 MG PO (10:26)
[2019-04-10 11:03] LABS: Ferritin 9163 ng/mL (30-400)
[2019-04-11 08:37] LABS: PROTEIN, TOTAL 6.4 g/dL (6.1-8.1)
[2019-04-11 12:11] LABS: KAPPA LIGHT CHAIN, FREE, SERUM 239.3 mg/L (3.3-19.4); KAPPA/LAMBDA LIGHT CHAINS FREE 17.99 (0.26-1.65); LAMBDA LIGHT CHAIN, FREE, SERU 13.3 mg/L (5.7-26.3)
[2019-04-11 16:17] LABS: ABNORMAL PROTEIN BAND 1 1.2 g/dL (NONE DETECTED); ALBUMIN 2.6 g/dL (3.8-4.8); ALPHA 1 GLOBULIN 0.7 g/dL (0.2-0.3); ALPHA 2 GLOBULIN 0.9 g/dL (0.5-0.9); BETA 1 GLOBULIN 0.4 g/dL (0.4-0.6); BETA 2 GLOBULIN 0.3 g/dL (0.2-0.5); GAMMA GLOBULIN 1.6 g/dL (0.8-1.7)
--- NOTE | 2019-04-13 20:36 | ONC FU_ITS ---
[facility] Patient Note Patient: Malik Montiel Unit #: [id number]: 1950 Dictated By: Alanna UmañaDate of Visit: Apr 10, 2019 Onc MED Follow-Up/Prog Note Chief Complaint: Anemia/lymphoma/myeloma/renal cell cancer. 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 He had presented in October 2015 with fatigue, shortness of breath, dizziness, and numbness/tingling. He was found on CBC to have a hemoglobin of 6.7 g. He received a transfusion of 2 U of packed red blood cells on 11/12/2015, and he subsequently felt much better. He had further laboratory evaluation on 11/12/2015 including haptoglobin which was normal at 71.8 mg/dL, normal serum iron at 133 mcg/dL with transferrin saturation 33%, and normal ferritin at 301 ng/mL. LDH was normal 166 U/L. Folate was elevated. Protein electrophoresis showed an IgG kappa monoclonal protein quantitating at 0.90 g/dL. The free kappa light chain was elevated at 344 mg/L, and the kappa: lambda ratio was elevated at 26.31. Skeletal survey on 11/19/2015 showed no evidence of lytic bone involvement. He underwent bone marrow aspiration/biopsy on 11/29/2015. The bone marrow was packed, cellularity 100%. It was a dry tap, so there was no aspirate available for analysis. The biopsy touch preps showed a proliferation of atypical mononuclear cells consistent with lymphoid origin. The bone marrow differential, based on the biopsy, showed an estimated 84% lymphocytes. The findings were felt to be consistent with extensive bone marrow involvement with a small B cell lymphoma with a diffuse pattern of infiltration. Plasma cells were noted to be just slightly increased with a slight kappa predilection. The immunophenotype of the B cell neoplasm was felt to be nonspecific, but favored marginal zone lymphoma. Iron stores were present 1+/4+. At the time of the bone marrow biopsy, his hemoglobin was back down to 7.7 g, and he did receive an additional 2 U of packed red blood cells. Staging PET/CT on 12/04/2015 showed an 8 cm heterogeneous mass involving the anterior right kidney with low grade FDG uptake, consistent with a probable incidental right renal cell carcinoma. There were no obvious sites of lymphoma or soft tissue plasmacytoma. Given the bone marrow findings, treatment with single agent rituximab weekly for 6 weeks was recommended. He received his week 1 infusion of rituximab on 12/16/15. He did experience an infusion reaction with it, but he subsequently tolerated treatment well with Solu-Medrol premedication. As of 01/20/2016 he completed his sixth weekly infusion. During the treatment he did show some symptomatic improvement, but he remained moderately anemic. Repeat bone marrow aspiration/biopsy on 02/23/2016 again showed a dry tap, with no obtainable aspirate. The cellularity was 100% with complete effacement by lymphoid proliferation consistent with the previous diagnosis of small B-cell lymphoma favoring marginal zone lymphoma. Whole blood flow cytometry showed rare CD5/CD10 double negative monotypic B cells with dim kappa light chain. The cells were positive for CD23 and negative for FMC-7. IHC demonstrated dim CD20 as well as strong CD43 and BCL-2. The cells were negative for CD5, CD10, CD3, BCL-6, BRAF, and CD21. The MYD-88 mutation was not detected. The findings were felt to be diagnostic of a small B-cell lymphoma. CT scans of the chest, abdomen, and pelvis on 03/15/2016 showed the large right renal mass measuring 10.5 x 8.4 x 8.7 cm, similar to the prior PET/CT. Left supraclavicular, AP window, mesenteric, and retroperitoneal lymphadenopathy were present on the prior PET CT from 12/04/2015 and were FDG negative. Also noted was a 5 mm spiculated nodule in the right middle lobe and additional 2 mm scattered noncalcified nodules in the left upper lobe. With those findings, he was seen by Dr. Mamadou Alvarado at [facility] for a second opinion evaluation. Evaluation included biopsy of the right renal mass, which did confirm involvement with lymphoma. He was recommended to continue treatment with a course of chemotherapy with bendamustine/Rituxan. He began cycle 1 of bendamustine/Rituxan on 04/21/2016. He was able to continue with cycle 2 on 05/19/2016 and with cycle 3 on 06/20/2016. The third cycle was delayed due to prolonged but not severe neutropenia. He was given Neulasta prophylactically with that cycle. He tolerated the treatment well, but there was still no improvement in his anemia. Restaging CT of the abdomen/pelvis on 07/19/2016 showed resolution of mesenteric and retroperitoneal lymphadenopathy, but no significant change in the complex right renal mass, measuring 10.5 x 8.7 x 9.2 cm. The spleen was still slightly enlarged. Repeat bone marrow aspiration/biopsy on 08/02/2016 showed persistent hypercellularity, estimated at 95-100%. Flow cytometry still showed evidence of a monoclonal B-cell population, but it accounted for only 1-2% of the marrow cellularity. Plasma cells were estimated at 10-20% with kappa light chain predominance, suggestive of plasma cell dyscrasia. Repeat protein electrophoresis showed persistent IgG kappa monoclonal protein, increased to 1.57 g/dL compared to 0.86 g/dL on 03/27/2016. The free kappa light chain was elevated at 753 mg/L with the kappa/lambda ration elevated at 70.64. A random urine showed a protein concentration of 8 mg/dL, 5.1% of which was monoclonal protein. Skeletal survey showed no lytic bone involvement. He returned to [facility] and he was seen by Dr. Jared Escobar on 10/16/2016. On their review of the bone marrow it was felt that the kappa restricted [id number] cells comprised 20 to 25% of the marrow aspirate, and he was recommended to begin treatment with KRd or VRd pending outcome of repeat bone marrow aspiration/biopsy and repeat staging PET/CT. PET/CT on 10/26/2016 showed FDG avid mixed cystic and solid right renal mass, SUV 2.1. A mildly prominent periaortic lymph node measuring 1.3 x 0.9 cm showed low-level uptake, SUV 2.7. A normal sized subcarinal lymph node showed mild hypermetabolism, SUV 2.5. There was no evidence of osseous involvement with myeloma. There was an abnormal focus of hypermetabolism within the left frontal cortex of the brain with maximum SUV 5.7, highly suspicious for neoplastic process. Further evaluation with brain MRI on 10/31/2016 showed numerous enhancing intraparenchymal metastatic lesions, estimated at 10-12 in number, the largest in the left frontal lobe measuring 2.1 cm. He returned to [facility] where he was admitted to the hospital and then completed additional evaluation with lumbar puncture and biopsy of the left frontal lobe mass. During that time he was transfused a total of 4 units of PRBC. He was discharged home on dexamethasone and Keppra. Pathology ultimately was nondiagnostic. During subsequent follow-up, he was tapered off dexamethasone. He then returned to [facility] and he underwent left frontal craniotomy with open biopsy of the left frontal lobe lesion. Pathology showed metastatic clear cell carcinoma consistent with renal primary. On 05/03/2017 he underwent right laparoscopic radical nephrectomy at [facility]. His tumor was noted to be locally advanced, with extension to the renal sinus, but it was completely resected. Pathology showed renal cell carcinoma measuring 9.5 cm, clear-cell type, WHO/ISUP grade 2. There was invasion of the renal sinus, but resection margins were uninvolved. There were no lymph nodes included in the specimen. Pathologic staging was pT3a, Nx. A noncontrast head CT on 06/07/2017 reported new multiple 5 mm hyperdense foci within the brain, but without a significant amount of surrounding edema or mass effect. He required further transfusions of packed red blood cells on 06/07/2017, on 07/03/2017, and on 07/19/2017. He had follow-up with Dr. Dereje Jones at [facility] on 07/24/2017. His repeat MRI at that time showed no evidence of recurrence within the left tumor cavity. The left posterior frontal treated lesion was noted to have less peritumoral edema and slightly less enhancement. The left insular tumor was difficult to detect, and the right posterior temporal tumors appeared approximately the same without any clear enhancement. Overall, it was felt that his brain lesions appeared adequately treated and with no new lesions identified. He was recommended to return for follow-up in 3 months. Restaging PET/CT on 08/11/2017 showed abnormal activity in the left supraclavicular lymph node, SUV 2.9. A 1 cm left superior mediastinal lymph node was FDG avid, SUV 4.4. A subcarinal lymph node measuring 1.5 cm was FDG avid with SUV 7.5 and a 1.5 cm right retrocrural node at the level of the diaphragmatic hiatus was noted to have mild abnormal FDG activity. Other small subcentimeter retroperitoneal lymph nodes showed no significant FDG activity. Multiple hepatic hypodensities were noted to be FDG negative and unchanged from the prior study in November 2015. There was no evidence of other metastatic disease. On 08/16/2017 he underwent repeat bone marrow aspiration/biopsy and biopsy of a left posterior cervical lymph node. Pathology on the lymph node showed small B-cell lymphoma with plasmacytic differentiation. The malignant cells were positive for CD45, CD19, CD20, CD23, and kappa light chain. They were negative for CD5, CD10, and FMC7. The reported differential included CD5 negative SLL/CLL versus marginal zone lymphoma. The bone marrow aspiration/biopsy was hypercellular with 100% cellularity. There was mild reticulin fibrosis noted. There were no overt dysplastic changes. There was no obvious infiltrative process identified. The flow cytometry demonstrated predominantly mature granulocytes. There were only rare polytypic B cells noted without aberrant antigen expression. There was no increase in CD34 positive blasts, CD117 positive immature precursors, or plasma cells. The FISH panels for myeloma and MDS were unrevealing, and the standard cytogenetic study was normal. Overall, the bone marrow was hypercellular but otherwise nondiagnostic. Given those findings, Dr Lazo opted to just continue with observation and symptomatic/supportive measures. He remained transfusion dependent. His laboratory studies did show evidence of transfusion associated iron overload, and he then started treatment with Jadenu 14 mg/kg daily. A repeat brain MRI on 10/23/2017 showed postoperative changes of interval left frontal craniotomy with resection cavity and a small amount of surrounding glioma doses. A 5 mm enhancing lesion in the left posterior frontal lobe was felt to be new. There was associated small amount of surrounding edema and hemosiderin. The previously described enhancing lesions had showed interval resolution. There was interval significant improvement in the previously described edema. However, during follow-up he remained transfusion dependent, and there was gradual increase in his M protein. Restaging PET/CT on 02/02/2018 showed decrease in the left supraclavicular and left superior mediastinal lymph nodes which had been noted on the prior study. A 1.5 cm subcarinal lymph node appeared stable, SUV 8.8. There was progression of right retrocrural node and there was a new portal lymph node measuring 1.4 cm. Also noted were new bilateral retroperitoneal lymph nodes in the right and left periaortic chair territories. These were consistent with disease progression. In February 2017 he underwent reevaluation with Dr. Jared Escobar at [facility]. His repeat bone marrow aspiration/biopsy on 03/08/2018 showed extensive involvement with recurrent/persistent B-cell lymphoma, estimated at greater than 70% involvement. The morphologic and immunophenotypic features were felt to be most consistent with a B-cell lymphoma with plasmacytic differentiation. Also noted was a kappa restricted plasma cell population comprising 10% of the marrow cellularity. With those findings, it was recommended that he begin a course of chemotherapy with cyclophosphamide/Velcade/dexamethasone. His past medical history is unremarkable. He has had no prior medical illnesses. His only other surgery was a hernia repair. He is a nonsmoker. INTERIM HISTORY: He began cycle 1 of cyclophosphamide/Velcade/dexamethasone on 04/08/2018. He also started weekly Procrit injections for the anemia. He tolerated the treatment well and he was able to continue with cycle 2 on 04/29/2018. His cycle 2 day 8 cyclophosphamide and his day 11 Velcade were held and his cycle 3 was delayed due to neutropenia. He was able to continue with cycle 3 on 05/27/2018. It was again complicated by neutropenia, and that cycle was limited to day 1 cyclophosphamide and day 1/day 4 Velcade. During this time he continued Procrit injections weekly. He had remained transfusion dependent, though not as frequently. His repeat protein electrophoresis on 06/17/2018 showed stable M protein at 3.1 g/dL. He continued with cycle 4 of cyclophosphamide/Velcade/dexamethasone on 06/24/2018, with cycle 5 on 07/16/2018, and with cycle 6 on 08/05/2018. Repeat bone marrow aspiration/biopsy on 08/29/2018 showed hypercellular marrow at 100% cellularity with an atypical lymphoid proliferation comprising 70-75% of the hematopoietic population. Flow cytometry showed a monotypic B-cell population comprising 10% of the total cellularity. The B cells were positive for CD45, CD19, CD20, CD23, and kappa light chain. They were negative for CD5, CD10, and FMC7. Nucleated RBCs were noted to be markedly decreased and relative number. There was limited dyserythropoiesis. Ring sideroblasts were noted to comprise 10% of the population. 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 The FISH panel was positive for IGH gain ( trisomy for chromosomes 14 q/14 or IGH rearrangement). Restaging PET/CT on 08/31/2018 showed unchanged subcarinal mediastinal lymph node and interval development of new prevascular lymph node. There was interval progression of existing and development of new abdominal malignant adenopathy. Also noted was a new 5 mm right apical pulmonary nodule with SUV 3.7, suspicious for malignancy. On 09/09/2018 he was hospitalized with pneumonia. He had very gradual recovery following that illness, and during subsequent follow-up he remained transfusion dependent. He also has continued to have severe neutropenia, and his further chemotherapy has remain on hold. During this time he was treated with Neupogen, and he did show response, but his neutrophil count had then gradually declined again. Dr Lazo had seen him for a follow-up visit on 11/19/2018 and had recommended a trial of therapy with venetoclax together with Neupogen or Neulasta. We were able to get insurance approval for the venetoclax, but not the growth factor. He had opted, though, to delay starting treatment until after hunting season. During that time, he continued to require PRBC transfusion on a regular basis. Sometime near the end of November 2018, he had fallen at home and sustained an injury to his left rib cage. Due to persistent pain in that area and to the delay in starting his treatment, Dr Lazo had recommended that he have restaging CT scans. His CT scans of the chest, abdomen, and pelvis on 01/27/2019 showed long-term stability of an irregular 5 mm pulmonary nodule in the right middle lobe. A right apical lymph node was no longer present. Left upper pneumonia appeared to have resolved. There was persistent small left pleural effusion but resolution of right pleural effusion. There were numerous small axillary, mediastinal, and hilar lymph nodes, largest in the subcarinal area measuring 2.5 x 2.0 cm. There were numerous left-sided rib fractures. The spleen was noted to be enlarged measuring 17.3 cm. Low-attenuation throughout the liver felt to be compatible with cysts. There appeared to be increasing size and number of retrocrural, mesenteric, and retroperitoneal adenopathy, but the increase was in the range of 2 to 3 mm in diameter. On 01/29/2019 he started treatment with venetoclax at [address] Lazo also had him start prednisone 20 mg daily. He tolerated the low dosage with no adverse effects, and he has since then continued to escalate the dosage per the standard protocol. As of 02/17/2019 he had persistent but stable neutropenia. He had remained transfusion dependent. As of 02/19/2019 the venetoclax dosage was increased to 200 mg daily, and as of 02/26/2019 it was further escalated to 400 mg daily. As of 03/06/2019 the venetoclax was put on hold due to worsening neutropenia, with ANC 200. He then started growth factor support with Neupogen 300 mcg daily. Within 3 days the white count had come up to 6300 with absolute neutrophil count 5400, and the Neupogen was stopped. At that point the platelet count had also increased significantly, from 134,000 to 199,000. Mr. Montiel is here today for follow-up. He is due for cycle 2 Rituxan. He states overall he feels really good. He has been able to be more active around the house. He states he is eating good. He denies any fever or chills. He has had no mouth sores. He states he can even tell he is taking any kind of treatment at this time. His last transfusion was 04/08/2019. His neutropenia continues to be corrected. He denies any bowel or bladder changes. He denies any rash. He denies mouth sores or any swollen lymph nodes. His ECOG is 1. He has resumed the venetoclax at 400 mg daily. Past Medical History: Mr. Montiel's medical history is unremarkable. Past Surgical History: Hernia repair Flu vaccine [id number] Lot E5 [id number] in 2019 Bone marrow in 2019 Right laparoscopic radical nephrectomy in 2018 Craniotomy(left frontal lobe) in 2018 Kidney biopsy(Dr. Alvar[facility] at [facility]) in 2017 Allergies: No Known Allergies. Medications: Acetaminophen 1 (325 mg) Tablet Oral q 4 hours PRN Acyclovir 1 Tablet (of 400 mg) Oral daily Jadenu 1 Tablet (of 1620 mg) Oral daily Levaquin 500 (500 mg) Tablet Oral PRN Lyrica 1 Capsule (of 100 mg) Oral b.i.d. Multivitamin 1 Tablet Liquid Oral daily PRN Pantoprazole Sodium 1 Tablet (of 40 mg) Tablet, enteric coated Oral daily PRN predniSONE 20 mg (of 20 mg) Tablet Oral daily Prochlorperazine Maleate 1 Tablet (of 10 mg) Oral q 4 hours PRN Tamsulosin HCl 2 (0.4 mg) Capsule Oral at bedtime vendexta 400 mg Tablet daily Voltaren Gel (jelly) Transdermal PRN Family History: Mr. Montiel's mother at age 85: congestive heart failure. Mr. Montiel's father at age 57: leukemia, and lymphoma. Mr. Montiel has 2 brothers: 2 . Mr. Montiel's first brother's lung cancer. Another brother's lung cancer. He has 1 sister who is alive. Social History: Mr. Montiel is and he is retired. Mr. Montiel has never smoked. He is an active drinker.He consumes 3 days/week. Mr. Montiel reports the following support systems: lives with spouse, significant other, family, or friends, lives in own house, supportive family/friends willing to assist with needs, and adequate transportation available for expected visits. His diet consists of regular meals. He indicates his activity level as: daily activities. Patient has never smoked. Currently drinks 2-3 beers per day. 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 Review Of Symptoms: Constitutional Denies fevers, chills, night sweats or weight loss. He states he does have fatigue but it is better overall. Allergic/Immunologic No reactions. Eyes Denies significant visual changes. ENMT Denies changes in hearing, sore throat, mouth sores, difficulty or changes in swallowing ability, and/or sinus drainage. Endocrine Denies hot flashes or night sweats. Hematologic/Lymphatic Denies easy bruising or bleeding. The patient denies any tender or palpable lymph nodes. Respiratory Denies dyspnea on exertion, chest pain, cough. Cardiovascular Denies anginal chest pain. Gastrointestinal Denies nausea, vomiting, diarrhea, heartburn, or constipation. Genitourinary (M) Denies hematuria, dysuria, increased frequency, urgency, hesitancy or incontinence. Musculoskeletal Denies joint pain, swelling or redness. No decreased range of motion. Integumentary Denies chronic rashes, inflammation, ulcerations or skin changes. Neurologic Denies headache, blurred vision. Psychiatric Denies insomnia, depression, anxiety. Vital Signs: Performed on Apr 10, 2019 09:08 Height - 73.00 in Weight - 152.8 lbs (HIGH) BSA - 1.92 sq.m BMI - 20.16 Temperature - 98.5 F Pulse - 72 /min Respiration - 16 /min BP - 93/58 mm(hg) O2 Sat - 97 % Pain - 0 Fatigue - 7,1 - No physically strenuous activity, but ambulatory and able to carry out light or sedentary work (e.g. office work, light house work). (ECOG) Physical Examination: Abdomen Non-tender, non-distended, no masses or ascites. Good bowel sounds noted in all quads. No guarding or rebound tenderness. No pulsatile masses. Constitutional Alert, oriented, no acute distress. Skin pink, warm and dry. more tired-denies fever. Head Normocephalic; atraumatic. Eyes Conjunctivae and sclerae are clear and without icterus. Pupils are reactive and equal. ENMT Sinuses are nontender. No oral exudates, ulcers, masses, thrush or mucositis. Oropharynx clear. Tongue normal. Neck Supple without masses or thyromegaly. No jugular venous distension. Hematologic/Lymphatic No petechiae or purpura. No tender or palpable lymph nodes in the cervical, supraclavicular area. Respiratory Lungs are clear to auscultation without rhonchi or wheezing. Cardiovascular Regular rate and rhythm of heart with II/ murmur but no clicks, gallops or rubs. Chest Chest is symmetric without chest wall deformities. Back/Spine Non-tender to palpation. Extremities No visible deformities, no cyanosis, clubbing or edema. Musculoskeletal No tenderness or swelling, normal range of motion without obvious weakness. Integumentary No rashes or lesions. Neurologic No sensory or motor deficits, normal cerebellar function, normal gait. Psychiatric Alert and oriented times three. Coherent speech. Verbalizes understanding of our discussions today. Laboratory:Test performed on Apr 10, 2019 08:33 Ferritin 9163 ng/mL Iron 217 ug/dL Sodium 131 mmol/L Potassium 4.5 mmol/L Chloride 96 mmol/L CO2 22 mmol/L UIBC 348 ug/dL Anion Gap 17.5 BUN 25 mg/dL Creatinine 1.0 mg/dL Cr Clearance (Est) 67.3800 mL/min Glucose 138 mg/dL Calcium 9.3 mg/dL Protein, Total 7.8 g/dL Albumin 2.8 g/dL Globulin 5.0 g/dL Bilirubin, Total 0.7 mg/dL ALT (SGPT) 7 U/L AST (SGOT) 11 U/L Alkaline Phosphatase 106 IU/L WBC 5.9 10 3/uL RBC 3.34 10 6/uL HGB 9.3 g/dL HCT 27.9 % MCV 83.5 fL MCH 27.8 pg MCHC 33.3 g/dL RDW 14.1 % Platelet Count 264 10 3/cmm MPV 9.3 fL Neutrophils 5.0 10 3/uL Lymphocytes 0.2 10 3/uL Monocytes 0.3 10 3/uL Eosinophils 0.0 10 3/uL Basophils 0.0 10 3/uL Neutrophil % 85.5 % Lymphocyte % 3.2 % Monocyte % 4.3 % Eosinophil % 0.0 % Basophils % 0.2 % CBC Slide Review Slide Review Perform SLIDE REVIEW AGREES WITH AUTOMATED RESULTS Test performed on Mar 06, 2019 14:05 Albumin, SPE 2.2 g/dL [place] / Lambda Ratio 52.94 Absolute Value Lambda Light Chain 12.7 [place] Light Chain 672.3 [id number] 0.7 g/dL [id number] 0.9 g/dL SPE Interpretation Restricted band (M-spike) migrating in the gamma region. Consider serum immunofixation to rule out a monoclonal protein if clinically indicated. Impression: 1. Patient with multiple malignancies including marginal zone lymphoma, stage IV renal cell carcinoma, and suspected myeloma. 2. He had initially presented in October 2015 with anemia and IgG kappa monoclonal gammopathy. 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 He also was found to have a large right renal mass. He underwent treatment with 6 weekly infusions of rituximab, completed on 01/20/2016. 3. Repeat bone marrow aspiration/biopsy on 02/23/2016 again showed 100% cellularity with complete effacement by a lymphoid proliferation. 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 4. He then had a second opinion evaluation with Dr. Mamadou Alvarado at [facility]. His evaluation there had included biopsy the right renal mass, with pathology reporting involvement with lymphoma. He was advised to continue treatment with a course of bendamustine/Rituxan chemotherapy, which began on 04/21/2016. He completed 3 cycles of treatment. He had prolonged but not severe neutropenia after the second cycle, and he did receive Neulasta prophylaxis with cycle 3. He tolerated the treatment well otherwise. However, he remained moderately anemic. His restaging CT abdomen/pelvis on 07/19/2016 showed resolution of the small mesenteric and retroperitoneal lymph nodes, but no significant change in the right renal mass. 5. His repeat bone marrow aspiration/biopsy on 08/02/2016 showed only a small amount of residual monoclonal B cells, estimated at 1-2% of the marrow cellularity. [place] restricted plasma cells were estimated at 20-25% of the cellularity, suspicious for plasma cell dyscrasia. His repeat protein electrophoresis showed an increase in his M protein to 1.57 g/dL. Skeletal survey showed no evidence of lytic bone involvement. Overall, the findings were felt to be consistent with myeloma. 6. He underwent left frontal craniotomy with excision of brain metastasis on 03/14/2017, pathology consistent with metastatic renal cell carcinoma. He underwent gamma knife radiosurgery to 4 additional brain lesions. 7. He underwent cytoreductive right laparoscopic radical nephrectomy on 05/03/2017. Pathology showed grade 2 renal cell carcinoma measuring 9.5 cm, clear cell type, pathologic stage T3a, NX. Since his initial presentation in October 2015 he has remained moderately anemic and transfusion dependent. The exact cause of the anemia remains uncertain, but it has not improved with treatment for the lymphoma or with surgical resection of the renal cell carcinoma. His follow-up brain MRI showed evidence of treated brain lesions and no indication of progression of metastatic disease in the brain. His restaging PET/CT on 08/11/2017 showed FDG avid lymph nodes at several sites, including the left supraclavicular area, superior mediastinum, subcarinal area, and retrocrural area. The largest of these measured 1.5 cm. There were no other areas of metastatic involvement noted. He underwent repeat bone marrow aspiration/biopsy and left cervical lymph node biopsy on 08/16/2017. 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 The bone marrow aspiration/biopsy was hypercellular, but with no diagnostic findings. There was a small amount of reticulin fibrosis noted. There was no increase in plasma cells and there was no evidence of lymphoma in the bone marrow. There also was no evidence of myelodysplastic syndrome. When those findings, Dr Lazo opted to follow him on observation and symptomatic/supportive measures. In August 2017 he began treatment with Jadenu 14 mg/kg daily for transfusion associated iron overload. His repeat head MRI on 10/23/2017 reported a new 5 mm lesion in the left posterior frontal lobe with a small amount of surrounding edema. All of the lesions which had been previously treated showed significant improvement. During subsequent follow-up he has remained transfusion dependent. He has started treatment with Jadenu for transfusion associated iron overload. His overall clinical status has been stable, but there was gradual increase in his M protein. Restaging PET/CT in January 2018 showed mild progression of lymphadenopathy, mainly in the carleen hepatis and retroperitoneal area. His repeat bone marrow aspiration/biopsy on 03/08/2018 showed extensive involvement with B-cell lymphoma, estimated at greater than 70% involvement. 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 Also noted was a kappa restricted plasma cell population estimated at 10% of the cellularity. On 04/08/2018 he began a course of treatment with cyclophosphamide, Velcade, and dexamethasone. He also started Procrit injections, and he was started on Jadenu for transfusion associated iron overload. His cycle 2 day 8 cyclophosphamide was held due to neutropenia. His cycle 3 was delayed by 1 week because his granulocyte count remained low, and that cycle was limited to just day 1 cyclophosphamide and day 1/day 4 Velcade. He continued with cycle 4 of cyclophosphamide/Velcade/dexamethasone on 06/24/2018, with cycle 5 on 07/16/2018, and with cycle 6 on 08/05/2018. His restaging bone marrow aspiration/biopsy 08/29/2018 showed 100% cellularity with 70-75% atypical lymphocytes, consistent with residual lymphoma. 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 There also was evidence of disease progression on his restaging PET/CT. On 09/09/2018 he was admitted to the hospital with pneumonia. He has been showing gradual recovery, but during this time he had a significant decline in his performance status. He remained transfusion dependent anemia, and he had moderately severe neutropenia and thrombocytopenia. In September 2018 he began trial of therapy with ibrutinib 420 mg daily. Within a short time he had become severely neutropenic, and the ibrutinib was put on hold. He subsequently did show some response to Neupogen, but with subsequant decline in the neutrophil count. He was then recommended to have a trial of therapy with venetoclax in combination with Neupogen or Neulasta. We were able to get approval for the venetoclax, but not the growth inhibitor. He had opted to put off the treatment until after . During follow-up he continued to have transfusion dependent anemia and a very significant IgG kappa monoclonal protein spike. He had a continued gradual decline in performance status. He fell at home and sustained multiple left rib fractures. His restaging CT scans on showed some progression of lymphadenopathy, though still not bulky. With evidence of disease progression and with declining performance status, I opted to have him begin treatment with venetoclax/rituximab. He began the venetoclax on 01/29/2019 and a dose of 20 mg daily. At that time I also had him start prednisone 20 mg daily. He was able to tolerate the low dosage of venetoclax with no adverse effects, and he then continued escalating the dosage per the standard protocol. As of 02/17/2019 he had continued to have moderately severe but stable neutropenia. He had also remained transfusion dependent. As of 02/19/2019 the venetoclax dosage was increased to 200 mg daily, and as of 02/26/2019 it was further escalated to 400 mg daily. As of 03/06/2019 his treatment was put on hold due to worsening neutropenia, ANC 200. He then started growth factor support with Neupogen. He had a very good response. Within 3 days his absolute neutrophil count had increased to 5400, and thus far it has remained stable off Neupogen. During that time, there also has been a significant increase in his platelet count and there also has been a significant decline in his M protein, so that he does appear to be showing a response to the treatment. Unfortunately he continues have transfusion dependent anemia. Mr Montiel has resumed the venetoclax at 400 mg daily and has completed 1/6 cyles of montly Rituxan. Plan: 1. Continue venetoclax at 400 mg daily. 2. Proceed with cycle 2/6 monthly cycles of rituximab. 3. continue the prednisone at 20 mg daily. 4. Today's labs reviewed in detail and discussed with Mr. Montiel and a copy was given to him. White count 5.9 hemoglobin 9.3 platelets 269,000 and ANC 5000. Creatinine 1.0 LFTs are normal albumin is 2.8. 5. We will continue twice weekly labs and transfusion services as needed. 6. We will plan to see him back in 1 month with CBC CMP typenex. 7. Mr Montiel was instructed to contact us in the interim if questions or problems arise. Signed By: Alanna Umaña-, [facility] Ulysses Lazo MD <<Signature on File>>
[2019-04-14 08:42] LABS: Basophils % 0.3 %; Hematocrit 25.4 % (42.0-52.0); Hemoglobin 8.5 g/dL (11.7-16.6); Lymphocytes # 0.5 10^3/uL (0.8-4.8); Lymphocytes % 13.6 %; Mean Corpuscular HGB Conc 33.5 g/dL (30.0-36.0); Mean Corpuscular Hemoglobin 29.2 pg (28.0-34.0); Mean Corpuscular Volume 87.3 fL (80-94); Mean Platelet Volume 9.6 fL (7.4-10.4); Monocytes # 0.4 10^3/uL (0.2-0.9); Monocytes % 9.7 %; Neutrophils # 2.7 10^3/uL (1.8-7.7); Neutrophils % 69.5 %; Nucleated Red Blood Cells % 0 %; Platelet Count 260 10^3/cmm (130-400); Red Blood Count 2.91 10^6/uL (4.1-5.3); White Blood Count 3.9 10^3/uL (4.0-10.0)
[2019-04-14 09:05] LABS: Alanine Aminotransferase 6 U/L (0-41); Albumin Level 2.6 g/dL (3.5-5.2); Alkaline Phosphatase 97 IU/L (40-130); Anion Gap 14.9 (5-19); Aspartate Amino Transferase 10 U/L (0-40); Blood Urea Nitrogen 22 mg/dL (8-23); Calcium 9.5 mg/dL (8.5-10.5); Carbon Dioxide 25 mmol/L (22-29); Chloride 98 mmol/L (98-107); Globulin 4.7 g/dL (1.3-4.6); Glucose 100 mg/dL (65-115); Potassium 3.9 mmol/L (3.5-5.1); Sodium 134 mmol/L (136-145); Total Bilirubin 0.6 mg/dL (0.15-1.2); Total Protein 7.3 g/dL (6.6-8.7)
[2019-04-14 09:34] LABS: Ferritin 7378 ng/mL (30-400)
[2019-04-14 09:39] LABS: Slide Review Slide Review Perform
[2019-04-14 10:59] LABS: Iron 197 ug/dL (59-158); Percent Saturation 47.4 % (20-50); Total Iron Binding Capacity 415 mcg/dl; Unsaturated Iron Binding 218 ug/dL (112-347)
[2019-04-14 11:22] LABS: Erythrocyte Sedimentation Rate > 120 mm/hr (0-10)
[2019-04-17 11:43] LABS: Basophils % 0.2 %; Hematocrit 23.8 % (42.0-52.0); Hemoglobin 7.8 g/dL (11.7-16.6); Lymphocytes # 0.3 10^3/uL (0.8-4.8); Lymphocytes % 7.2 %; Mean Corpuscular HGB Conc 32.8 g/dL (30.0-36.0); Mean Corpuscular Hemoglobin 28.5 pg (28.0-34.0); Mean Corpuscular Volume 86.9 fL (80-94); Mean Platelet Volume 9.6 fL (7.4-10.4); Monocytes # 0.3 10^3/uL (0.2-0.9); Monocytes % 5.8 %; Neutrophils # 3.4 10^3/uL (1.8-7.7); Neutrophils % 77.5 %; Nucleated Red Blood Cells % 0 %; Platelet Count 262 10^3/cmm (130-400); Red Blood Count 2.74 10^6/uL (4.1-5.3); Red Cell Distribution Width 13.7 % (12.1-15.1); White Blood Count 4.3 10^3/uL (4.0-10.0)
[2019-04-17 12:19] LABS: Slide Review Slide Review Perform
[2019-04-17 12:48] LABS: Alanine Aminotransferase < 5 U/L (0-41); Albumin Level 2.7 g/dL (3.5-5.2); Alkaline Phosphatase 94 IU/L (40-130); Anion Gap 15.5 (5-19); Aspartate Amino Transferase 8 U/L (0-40); Blood Urea Nitrogen 34 mg/dL (8-23); Calcium 9.4 mg/dL (8.5-10.5); Carbon Dioxide 23 mmol/L (22-29); Chloride 98 mmol/L (98-107); Globulin 4.6 g/dL (1.3-4.6); Glucose 124 mg/dL (65-115); Potassium 4.5 mmol/L (3.5-5.1); Sodium 132 mmol/L (136-145); Total Bilirubin 0.5 mg/dL (0.15-1.2); Total Protein 7.3 g/dL (6.6-8.7)
[2019-04-18] MEDS: sodium chloride 0.9% 250 ML 999 ML IV (08:50)
[2019-04-18 09:40] VITALS: BP 93/59; PULSE 66; RESP 18; TEMP 36.9; O2SAT 97
[2019-04-18 09:55] VITALS: BP 104/68; PULSE 64; RESP 18; TEMP 36.9; O2SAT 97
[2019-04-18 10:10] VITALS: BP 105/63; PULSE 65; RESP 18; TEMP 36.7; O2SAT 97
[2019-04-18 11:00] VITALS: BP 103/62; BP 118/64; PULSE 64; PULSE 66; RESP 18; TEMP 36.8; TEMP 36.9; O2SAT 96; O2SAT 97
[2019-04-18 11:15] VITALS: BP 109/64; PULSE 70; RESP 18; TEMP 36.2; O2SAT 96
[2019-04-18 11:30] VITALS: BP 111/68; PULSE 65; RESP 18; TEMP 36.2; O2SAT 96
== END 2019-04-19 23:59 | disposition home or self-care (01) ==
LOC: ONCMED 07:15
PROVIDERS: Nurse Practitioner; Visit Provider Internal Medicine Medical Oncology
DX: Z51.12 Encounter for antineoplastic immunotherapy (principal); Z79.891 Long term (current) use of opiate analgesic; C85.98 Non-Hodgkin lymphoma, unspecified, lymph nodes of multiple sites; D70.1 Agranulocytosis secondary to cancer chemotherapy; C79.31 Secondary malignant neoplasm of brain; C90.00 Multiple myeloma not having achieved remission; F10.20 Alcohol dependence, uncomplicated; T45.1X5A Adverse effect of antineoplastic and immunosuppressive drugs, initial encounter; Z85.528 Personal history of other malignant neoplasm of kidney; Z91.81 History of falling; Z79.899 Other long term (current) drug therapy; Z79.52 Long term (current) use of systemic steroids; Z90.5 Acquired absence of kidney; Z92.3 Personal history of irradiation; Z87.01 Personal history of pneumonia (recurrent)
CPT/HCPCS: 36415; 36430; 80053; 82728; 83540; 83550; 83883; 84155; 84165; 85025; 85651; 86850; 86900; 86902; 86920; 96361; 96367; 96413; 96415; 99214; J1200; J7030; J7040; J7050; J9312; P9040

== ENCOUNTER 2019-05-16 09:30 | Outpatient (RCR) | payer OTHER, MEDICARE, SELFPAY ==
[2019-04-21 09:43] LABS: Basophils % 0.2 %; Hematocrit 27.6 % (42.0-52.0); Lymphocytes # 0.6 10^3/uL (0.8-4.8); Lymphocytes % 15.5 %; Mean Corpuscular HGB Conc 32.6 g/dL (30.0-36.0); Mean Corpuscular Hemoglobin 28.8 pg (28.0-34.0); Mean Corpuscular Volume 88.5 fL (80-94); Mean Platelet Volume 9.5 fL (7.4-10.4); Monocytes # 0.4 10^3/uL (0.2-0.9); Monocytes % 9.6 %; Neutrophils # 2.9 10^3/uL (1.8-7.7); Nucleated Red Blood Cells % 0 %; Platelet Count 267 10^3/cmm (130-400); Red Blood Count 3.12 10^6/uL (4.1-5.3); Red Cell Distribution Width 13.9 % (12.1-15.1); White Blood Count 4.1 10^3/uL (4.0-10.0)
[2019-04-21 09:58] LABS: Alanine Aminotransferase 6 U/L (0-41); Alkaline Phosphatase 90 IU/L (40-130); Anion Gap 13.8 (5-19); Aspartate Amino Transferase 10 U/L (0-40); Blood Urea Nitrogen 19 mg/dL (8-23); Calcium 9.2 mg/dL (8.5-10.5); Carbon Dioxide 25 mmol/L (22-29); Chloride 100 mmol/L (98-107); Globulin 4.3 g/dL (1.3-4.6); Glucose 127 mg/dL (65-115); Potassium 3.8 mmol/L (3.5-5.1); Sodium 135 mmol/L (136-145); Total Bilirubin 0.7 mg/dL (0.15-1.2); Total Protein 7.3 g/dL (6.6-8.7)
[2019-04-24 11:43] LABS: Basophils % 0.2 %; Hematocrit 24.2 % (42.0-52.0); Hemoglobin 7.9 g/dL (11.7-16.6); Lymphocytes # 0.3 10^3/uL (0.8-4.8); Lymphocytes % 5.1 %; Mean Corpuscular HGB Conc 32.6 g/dL (30.0-36.0); Mean Corpuscular Hemoglobin 27.8 pg (28.0-34.0); Mean Corpuscular Volume 85.2 fL (80-94); Mean Platelet Volume 9.6 fL (7.4-10.4); Monocytes # 0.3 10^3/uL (0.2-0.9); Monocytes % 6.1 %; Nucleated Red Blood Cells % 0 %; Platelet Count 268 10^3/cmm (130-400); Red Blood Count 2.84 10^6/uL (4.1-5.3); Red Cell Distribution Width 13.8 % (12.1-15.1); White Blood Count 4.9 10^3/uL (4.0-10.0)
[2019-04-24 12:20] LABS: Alanine Aminotransferase < 5 U/L (0-41); Albumin Level 2.8 g/dL (3.5-5.2); Alkaline Phosphatase 95 IU/L (40-130); Anion Gap 13.1 (5-19); Aspartate Amino Transferase 9 U/L (0-40); Blood Urea Nitrogen 20 mg/dL (8-23); Calcium 9.1 mg/dL (8.5-10.5); Carbon Dioxide 25 mmol/L (22-29); Chloride 100 mmol/L (98-107); Globulin 4.3 g/dL (1.3-4.6); Glucose 115 mg/dL (65-115); Potassium 4.1 mmol/L (3.5-5.1); Sodium 134 mmol/L (136-145); Total Bilirubin 0.5 mg/dL (0.15-1.2); Total Protein 7.1 g/dL (6.6-8.7)
[2019-04-24 13:08] LABS: Slide Review Slide Review Perform
[2019-04-25] VITALS (10 sets, daily range): BP systolic 106–118; BP diastolic 67–75; PULSE 61–78; RESP 16–18; TEMP 36.7–37.2; O2SAT 96–99
[2019-04-25] MEDS: sodium chloride 0.9% 250 ML 999 ML IV (08:20)
[2019-04-28 08:56] LABS: Basophils % 0.2 %; Hematocrit 26.5 % (42.0-52.0); Hemoglobin 8.8 g/dL (11.7-16.6); Lymphocytes # 0.6 10^3/uL (0.8-4.8); Lymphocytes % 13.9 %; Mean Corpuscular HGB Conc 33.2 g/dL (30.0-36.0); Mean Corpuscular Hemoglobin 28.2 pg (28.0-34.0); Mean Corpuscular Volume 84.9 fL (80-94); Mean Platelet Volume 9.3 fL (7.4-10.4); Monocytes # 0.4 10^3/uL (0.2-0.9); Neutrophils % 68.9 %; Nucleated Red Blood Cells % 0 %; Platelet Count 278 10^3/cmm (130-400); Red Blood Count 3.12 10^6/uL (4.1-5.3); Red Cell Distribution Width 14.4 % (12.1-15.1); White Blood Count 4.3 10^3/uL (4.0-10.0)
[2019-04-28 09:14] LABS: Alanine Aminotransferase < 5 U/L (0-41); Albumin Level 2.7 g/dL (3.5-5.2); Alkaline Phosphatase 107 IU/L (40-130); Anion Gap 15.4 (5-19); Aspartate Amino Transferase 13 U/L (0-40); Blood Urea Nitrogen 18 mg/dL (8-23); Carbon Dioxide 23 mmol/L (22-29); Chloride 99 mmol/L (98-107); Globulin 4.2 g/dL (1.3-4.6); Glucose 98 mg/dL (65-115); Osmolality Calculated 272 mOsm/kg (285-295); Potassium 4.4 mmol/L (3.5-5.1); Sodium 133 mmol/L (136-145); Total Bilirubin 0.5 mg/dL (0.15-1.2); Total Protein 6.9 g/dL (6.6-8.7)
[2019-05-01 10:15] LABS: Hematocrit 25.6 % (42.0-52.0); Hemoglobin 8.4 g/dL (11.7-16.6); Lymphocytes # 0.4 10^3/uL (0.8-4.8); Lymphocytes % 9.6 %; Mean Corpuscular HGB Conc 32.8 g/dL (30.0-36.0); Mean Corpuscular Hemoglobin 29.2 pg (28.0-34.0); Mean Corpuscular Volume 88.9 fL (80-94); Mean Platelet Volume 9.5 fL (7.4-10.4); Monocytes # 0.3 10^3/uL (0.2-0.9); Monocytes % 8.1 %; Nucleated Red Blood Cells % 0 %; Platelet Count 282 10^3/cmm (130-400); Red Blood Count 2.88 10^6/uL (4.1-5.3); Red Cell Distribution Width 14.4 % (12.1-15.1); White Blood Count 3.9 10^3/uL (4.0-10.0)
[2019-05-01 10:29] LABS: Alanine Aminotransferase < 5 U/L (0-41); Albumin Level 2.8 g/dL (3.5-5.2); Alkaline Phosphatase 99 IU/L (40-130); Aspartate Amino Transferase 9 U/L (0-40); Blood Urea Nitrogen 27 mg/dL (8-23); Calcium 9.1 mg/dL (8.5-10.5); Carbon Dioxide 25 mmol/L (22-29); Chloride 98 mmol/L (98-107); Globulin 4.5 g/dL (1.3-4.6); Glucose 112 mg/dL (65-115); Osmolality Calculated 274 mOsm/kg (285-295); Sodium 133 mmol/L (136-145); Total Bilirubin 0.4 mg/dL (0.15-1.2); Total Protein 7.3 g/dL (6.6-8.7)
[2019-05-01 10:59] LABS: Slide Review Slide Review Perform
[2019-05-02] VITALS (10 sets, daily range): BP systolic 94–111; BP diastolic 61–67; PULSE 60–68; RESP 16–18; TEMP 36.6–36.8; O2SAT 97–99
[2019-05-05 09:56] LABS: Basophils % 0.2 %; Hematocrit 29.4 % (42.0-52.0); Hemoglobin 9.5 g/dL (11.7-16.6); Lymphocytes # 0.7 10^3/uL (0.8-4.8); Lymphocytes % 14.2 %; Mean Corpuscular HGB Conc 32.3 g/dL (30.0-36.0); Mean Corpuscular Hemoglobin 28.9 pg (28.0-34.0); Mean Corpuscular Volume 89.4 fL (80-94); Mean Platelet Volume 9.3 fL (7.4-10.4); Monocytes # 0.5 10^3/uL (0.2-0.9); Neutrophils # 3.2 10^3/uL (1.8-7.7); Neutrophils % 67.2 %; Nucleated Red Blood Cells % 0 %; Platelet Count 285 10^3/cmm (130-400); Red Blood Count 3.29 10^6/uL (4.1-5.3); Red Cell Distribution Width 14.1 % (12.1-15.1); White Blood Count 4.7 10^3/uL (4.0-10.0)
[2019-05-05 10:13] LABS: Alanine Aminotransferase < 5 U/L (0-41); Albumin Level 2.9 g/dL (3.5-5.2); Alkaline Phosphatase 94 IU/L (40-130); Aspartate Amino Transferase 9 U/L (0-40); Blood Urea Nitrogen 24 mg/dL (8-23); Calcium 8.9 mg/dL (8.5-10.5); Carbon Dioxide 29 mmol/L (22-29); Chloride 101 mmol/L (98-107); Glucose 141 mg/dL (65-115); Osmolality Calculated 281 mOsm/kg (285-295); Sodium 136 mmol/L (136-145); Total Bilirubin 0.5 mg/dL (0.15-1.2); Total Protein 6.9 g/dL (6.6-8.7)
[2019-05-05 10:48] LABS: Slide Review Slide Review Perform
[2019-05-08 08:55] LABS: Basophils % 0.2 %; Hematocrit 29.2 % (42.0-52.0); Hemoglobin 9.5 g/dL (11.7-16.6); Lymphocytes # 0.4 10^3/uL (0.8-4.8); Mean Corpuscular HGB Conc 32.5 g/dL (30.0-36.0); Mean Corpuscular Hemoglobin 29.1 pg (28.0-34.0); Mean Corpuscular Volume 89.3 fL (80-94); Mean Platelet Volume 9.1 fL (7.4-10.4); Monocytes # 0.4 10^3/uL (0.2-0.9); Monocytes % 6.6 %; Neutrophils # 4.7 10^3/uL (1.8-7.7); Neutrophils % 80.7 %; Nucleated Red Blood Cells % 0 %; Platelet Count 304 10^3/cmm (130-400); Red Blood Count 3.27 10^6/uL (4.1-5.3); White Blood Count 5.9 10^3/uL (4.0-10.0)
[2019-05-08 09:04] LABS: Alanine Aminotransferase < 5 U/L (0-41); Albumin Level 2.7 g/dL (3.5-5.2); Alkaline Phosphatase 95 IU/L (40-130); Anion Gap 14.2 (5-19); Aspartate Amino Transferase 9 U/L (0-40); Blood Urea Nitrogen 24 mg/dL (8-23); Calcium 9.3 mg/dL (8.5-10.5); Carbon Dioxide 25 mmol/L (22-29); Chloride 101 mmol/L (98-107); Globulin 4.5 g/dL (1.3-4.6); Glucose 127 mg/dL (65-115); Osmolality Calculated 280 mOsm/kg (285-295); Potassium 4.2 mmol/L (3.5-5.1); Sodium 136 mmol/L (136-145); Total Bilirubin 0.6 mg/dL (0.15-1.2); Total Protein 7.2 g/dL (6.6-8.7)
[2019-05-08 09:21] LABS: Slide Review Slide Review Perform
[2019-05-08] MEDS: sodium chloride 0.9% 1,000 ML 999 ML IV (10:03)
[2019-05-08] MEDS: acetaminophen 325 mg Tablet 650 MG PO (10:04)
--- NOTE | 2019-05-11 09:19 | ONC FU_ITS ---
Dr. Lazo Patient Follow-Up Note Patient: Malik Montiel Unit #: [id number]: 1950 Dicatated By: Ulysses Lazo M.D.Date of Visit:May 08, 2019 Onc Med Follow-up/Prog Note Chief Complaint: Anemia/lymphoma/myeloma/renal cell cancer. 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 He had presented in October 2015 with fatigue, shortness of breath, dizziness, and numbness/tingling. He was found on CBC to have a hemoglobin of 6.7 g. He received a transfusion of 2 U of packed red blood cells on 11/12/2015, and he subsequently felt much better. He had further laboratory evaluation on 11/12/2015 including haptoglobin which was normal at 71.8 mg/dL, normal serum iron at 133 mcg/dL with transferrin saturation 33%, and normal ferritin at 301 ng/mL. LDH was normal 166 U/L. Folate was elevated. Protein electrophoresis showed an IgG kappa monoclonal protein quantitating at 0.90 g/dL. The free kappa light chain was elevated at 344 mg/L, and the kappa: lambda ratio was elevated at 26.31. Skeletal survey on 11/19/2015 showed no evidence of lytic bone involvement. He underwent bone marrow aspiration/biopsy on 11/29/2015. The bone marrow was packed, cellularity 100%. It was a dry tap, so there was no aspirate available for analysis. The biopsy touch preps showed a proliferation of atypical mononuclear cells consistent with lymphoid origin. The bone marrow differential, based on the biopsy, showed an estimated 84% lymphocytes. The findings were felt to be consistent with extensive bone marrow involvement with a small B cell lymphoma with a diffuse pattern of infiltration. Plasma cells were noted to be just slightly increased with a slight kappa predilection. The immunophenotype of the B cell neoplasm was felt to be nonspecific, but favored marginal zone lymphoma. Iron stores were present 1+/4+. At the time of the bone marrow biopsy, his hemoglobin was back down to 7.7 g, and he did receive an additional 2 U of packed red blood cells. Staging PET/CT on 12/04/2015 showed an 8 cm heterogeneous mass involving the anterior right kidney with low grade FDG uptake, consistent with a probable incidental right renal cell carcinoma. There were no obvious sites of lymphoma or soft tissue plasmacytoma. Given the bone marrow findings, treatment with single agent rituximab weekly for 6 weeks was recommended. He received his week 1 infusion of rituximab on 12/16/15. He did experience an infusion reaction with it, but he subsequently tolerated treatment well with Solu-Medrol premedication. As of 01/20/2016 he completed his sixth weekly infusion. During the treatment he did show some symptomatic improvement, but he remained moderately anemic. Repeat bone marrow aspiration/biopsy on 02/23/2016 again showed a dry tap, with no obtainable aspirate. The cellularity was 100% with complete effacement by lymphoid proliferation consistent with the previous diagnosis of small B-cell lymphoma favoring marginal zone lymphoma. Whole blood flow cytometry showed rare CD5/CD10 double negative monotypic B cells with dim kappa light chain. The cells were positive for CD23 and negative for FMC-7. IHC demonstrated dim CD20 as well as strong CD43 and BCL-2. The cells were negative for CD5, CD10, CD3, BCL-6, BRAF, and CD21. The MYD-88 mutation was not detected. The findings were felt to be diagnostic of a small B-cell lymphoma. CT scans of the chest, abdomen, and pelvis on 03/15/2016 showed the large right renal mass measuring 10.5 x 8.4 x 8.7 cm, similar to the prior PET/CT. Left supraclavicular, AP window, mesenteric, and retroperitoneal lymphadenopathy were present on the prior PET CT from 12/04/2015 and were FDG negative. Also noted was a 5 mm spiculated nodule in the right middle lobe and additional 2 mm scattered noncalcified nodules in the left upper lobe. With those findings, he was seen by Dr. Mamadou Alvarado at [facility] for a second opinion evaluation. Evaluation included biopsy of the right renal mass, which did confirm involvement with lymphoma. He was recommended to continue treatment with a course of chemotherapy with bendamustine/Rituxan. He began cycle 1 of bendamustine/Rituxan on 04/21/2016. He was able to continue with cycle 2 on 05/19/2016 and with cycle 3 on 06/20/2016. The third cycle was delayed due to prolonged but not severe neutropenia. He was given Neulasta prophylactically with that cycle. He tolerated the treatment well, but there was still no improvement in his anemia. Restaging CT of the abdomen/pelvis on 07/19/2016 showed resolution of mesenteric and retroperitoneal lymphadenopathy, but no significant change in the complex right renal mass, measuring 10.5 x 8.7 x 9.2 cm. The spleen was still slightly enlarged. Repeat bone marrow aspiration/biopsy on 08/02/2016 showed persistent hypercellularity, estimated at 95-100%. Flow cytometry still showed evidence of a monoclonal B-cell population, but it accounted for only 1-2% of the marrow cellularity. Plasma cells were estimated at 10-20% with kappa light chain predominance, suggestive of plasma cell dyscrasia. Repeat protein electrophoresis showed persistent IgG kappa monoclonal protein, increased to 1.57 g/dL compared to 0.86 g/dL on 03/27/2016. The free kappa light chain was elevated at 753 mg/L with the kappa/lambda ration elevated at 70.64. A random urine showed a protein concentration of 8 mg/dL, 5.1% of which was monoclonal protein. Skeletal survey showed no lytic bone involvement. He returned to [facility] and he was seen by Dr. Jared Escobar on 10/16/2016. On their review of the bone marrow it was felt that the kappa restricted [id number] cells comprised 20 to 25% of the marrow aspirate, and he was recommended to begin treatment with KRd or VRd pending outcome of repeat bone marrow aspiration/biopsy and repeat staging PET/CT. PET/CT on 10/26/2016 showed FDG avid mixed cystic and solid right renal mass, SUV 2.1. A mildly prominent periaortic lymph node measuring 1.3 x 0.9 cm showed low-level uptake, SUV 2.7. A normal sized subcarinal lymph node showed mild hypermetabolism, SUV 2.5. There was no evidence of osseous involvement with myeloma. There was an abnormal focus of hypermetabolism within the left frontal cortex of the brain with maximum SUV 5.7, highly suspicious for neoplastic process. Further evaluation with brain MRI on 10/31/2016 showed numerous enhancing intraparenchymal metastatic lesions, estimated at 10-12 in number, the largest in the left frontal lobe measuring 2.1 cm. He returned to [facility] where he was admitted to the hospital and then completed additional evaluation with lumbar puncture and biopsy of the left frontal lobe mass. During that time he was transfused a total of 4 units of PRBC. He was discharged home on dexamethasone and Keppra. Pathology ultimately was nondiagnostic. During subsequent follow-up, he was tapered off dexamethasone. He then returned to [facility] and he underwent left frontal craniotomy with open biopsy of the left frontal lobe lesion. Pathology showed metastatic clear cell carcinoma consistent with renal primary. On 05/03/2017 he underwent right laparoscopic radical nephrectomy at [facility]. His tumor was noted to be locally advanced, with extension to the renal sinus, but it was completely resected. Pathology showed renal cell carcinoma measuring 9.5 cm, clear-cell type, WHO/ISUP grade 2. There was invasion of the renal sinus, but resection margins were uninvolved. There were no lymph nodes included in the specimen. Pathologic staging was pT3a, Nx. A noncontrast head CT on 06/07/2017 reported new multiple 5 mm hyperdense foci within the brain, but without a significant amount of surrounding edema or mass effect. He required further transfusions of packed red blood cells on 06/07/2017, on 07/03/2017, and on 07/19/2017. He had follow-up with Dr. Dereje Jones at [facility] on 07/24/2017. His repeat MRI at that time showed no evidence of recurrence within the left tumor cavity. The left posterior frontal treated lesion was noted to have less peritumoral edema and slightly less enhancement. The left insular tumor was difficult to detect, and the right posterior temporal tumors appeared approximately the same without any clear enhancement. Overall, it was felt that his brain lesions appeared adequately treated and with no new lesions identified. He was recommended to return for follow-up in 3 months. Restaging PET/CT on 08/11/2017 showed abnormal activity in the left supraclavicular lymph node, SUV 2.9. A 1 cm left superior mediastinal lymph node was FDG avid, SUV 4.4. A subcarinal lymph node measuring 1.5 cm was FDG avid with SUV 7.5 and a 1.5 cm right retrocrural node at the level of the diaphragmatic hiatus was noted to have mild abnormal FDG activity. Other small subcentimeter retroperitoneal lymph nodes showed no significant FDG activity. Multiple hepatic hypodensities were noted to be FDG negative and unchanged from the prior study in November 2015. There was no evidence of other metastatic disease. On 08/16/2017 he underwent repeat bone marrow aspiration/biopsy and biopsy of a left posterior cervical lymph node. Pathology on the lymph node showed small B-cell lymphoma with plasmacytic differentiation. The malignant cells were positive for CD45, CD19, CD20, CD23, and kappa light chain. They were negative for CD5, CD10, and FMC7. The reported differential included CD5 negative SLL/CLL versus marginal zone lymphoma. The bone marrow aspiration/biopsy was hypercellular with 100% cellularity. There was mild reticulin fibrosis noted. There were no overt dysplastic changes. There was no obvious infiltrative process identified. The flow cytometry demonstrated predominantly mature granulocytes. There were only rare polytypic B cells noted without aberrant antigen expression. There was no increase in CD34 positive blasts, CD117 positive immature precursors, or plasma cells. The FISH panels for myeloma and MDS were unrevealing, and the standard cytogenetic study was normal. Overall, the bone marrow was hypercellular but otherwise nondiagnostic. Given those findings, I had opted to just continue with observation and symptomatic/supportive measures. He remained transfusion dependent. His laboratory studies did show evidence of transfusion associated iron overload, and he then started treatment with Jadenu 14 mg/kg daily. A repeat brain MRI on 10/23/2017 showed postoperative changes of interval left frontal craniotomy with resection cavity and a small amount of surrounding glioma doses. A 5 mm enhancing lesion in the left posterior frontal lobe was felt to be new. There was associated small amount of surrounding edema and hemosiderin. The previously described enhancing lesions had showed interval resolution. There was interval significant improvement in the previously described edema. However, during follow-up he remained transfusion dependent, and there was gradual increase in his M protein. Restaging PET/CT on 02/02/2018 showed decrease in the left supraclavicular and left superior mediastinal lymph nodes which had been noted on the prior study. A 1.5 cm subcarinal lymph node appeared stable, SUV 8.8. There was progression of right retrocrural node and there was a new portal lymph node measuring 1.4 cm. Also noted were new bilateral retroperitoneal lymph nodes in the right and left periaortic chair territories. These were consistent with disease progression. In February 2017 he underwent reevaluation with Dr. Jared Escobar at [facility]. His repeat bone marrow aspiration/biopsy on 03/08/2018 showed extensive involvement with recurrent/persistent B-cell lymphoma, estimated at greater than 70% involvement. The morphologic and immunophenotypic features were felt to be most consistent with a B-cell lymphoma with plasmacytic differentiation. Also noted was a kappa restricted plasma cell population comprising 10% of the marrow cellularity. With those findings, it was recommended that he begin a course of chemotherapy with cyclophosphamide/Velcade/dexamethasone. His past medical history is unremarkable. He has had no prior medical illnesses. His only other surgery was a hernia repair. He is a nonsmoker. INTERIM HISTORY: He began cycle 1 of cyclophosphamide/Velcade/dexamethasone on 04/08/2018. He also started weekly Procrit injections for the anemia. He tolerated the treatment well and he was able to continue with cycle 2 on 04/29/2018. His cycle 2 day 8 cyclophosphamide and his day 11 Velcade were held and his cycle 3 was delayed due to neutropenia. He was able to continue with cycle 3 on 05/27/2018. It was again complicated by neutropenia, and that cycle was limited to day 1 cyclophosphamide and day 1/day 4 Velcade. During this time he continued Procrit injections weekly. He had remained transfusion dependent, though not as frequently. His repeat protein electrophoresis on 06/17/2018 showed stable M protein at 3.1 g/dL. He continued with cycle 4 of cyclophosphamide/Velcade/dexamethasone on 06/24/2018, with cycle 5 on 07/16/2018, and with cycle 6 on 08/05/2018. Repeat bone marrow aspiration/biopsy on 08/29/2018 showed hypercellular marrow at 100% cellularity with an atypical lymphoid proliferation comprising 70-75% of the hematopoietic population. Flow cytometry showed a monotypic B-cell population comprising 10% of the total cellularity. The B cells were positive for CD45, CD19, CD20, CD23, and kappa light chain. They were negative for CD5, CD10, and FMC7. Nucleated RBCs were noted to be markedly decreased and relative number. There was limited dyserythropoiesis. Ring sideroblasts were noted to comprise 10% of the population. 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 The FISH panel was positive for IGH gain ( trisomy for chromosomes 14 q/14 or IGH rearrangement). Restaging PET/CT on 08/31/2018 showed unchanged subcarinal mediastinal lymph node and interval development of new prevascular lymph node. There was interval progression of existing and development of new abdominal malignant adenopathy. Also noted was a new 5 mm right apical pulmonary nodule with SUV 3.7, suspicious for malignancy. On 09/09/2018 he was hospitalized with pneumonia. He had very gradual recovery following that illness, and during subsequent follow-up he remained transfusion dependent. He also has continued to have severe neutropenia, and his further chemotherapy has remain on hold. During this time he was treated with Neupogen, and he did show response, but his neutrophil count had then gradually declined again. I had seen him for a follow-up visit on 11/19/2018. At that point I had recommended a trial of therapy with venetoclax together with Neupogen or Neulasta. We were able to get insurance approval for the venetoclax, but not the growth factor. He had opted, though, to delay starting treatment until after deer hunting season. During that time, he continued to require PRBC transfusion on a regular basis. Sometime near the end of November he had fallen at home and sustained an injury to his left rib cage. Due to persistent pain in that area and to the delay in starting his treatment, I had recommended that he have restaging CT scans. His CT scans of the chest, abdomen, and pelvis on 01/27/2019 showed long-term stability of an irregular 5 mm pulmonary nodule in the right middle lobe. A right apical lymph node was no longer present. Left upper pneumonia appeared to have resolved. There was persistent small left pleural effusion but resolution of right pleural effusion. There were numerous small axillary, mediastinal, and hilar lymph nodes, largest in the subcarinal area measuring 2.5 x 2.0 cm. There were numerous left-sided rib fractures. The spleen was noted to be enlarged measuring 17.3 cm. Low-attenuation throughout the liver felt to be compatible with cysts. There appeared to be increasing size and number of retrocrural, mesenteric, and retroperitoneal adenopathy, but the increase was in the range of 2 to 3 mm in diameter. On 01/29/2019 he started treatment with venetoclax at 20 mg daily. I also had him start prednisone 20 mg daily. He tolerated the low dosage with no adverse effects, and he then continued to escalate the dosage per the standard protocol. As of 02/17/2019 he had persistent but stable neutropenia. He had remained transfusion dependent. As of 02/19/2019 the venetoclax dosage was increased to 200 mg daily, and as of 02/26/2019 it was further escalated to 400 mg daily. As of 03/06/2019 the venetoclax was put on hold due to worsening neutropenia, with ANC 200. He then started growth factor support with Neupogen 300 mcg daily. Within 3 days the white count had come up to 6300 with absolute neutrophil count 5400, and the Neupogen was stopped. At that point the platelet count had also increased significantly, from 134,000 to 199,000. He was then able to restart venetoclax at 400 mg daily with no recurrence of the neutropenia. He began cycle 1 of rituximab on 03/13/2019. He tolerated it well, and he continued the venetoclax 400 mg daily. He received cycle 2 of rituximab on 04/10/2019. During that time his hemoglobin fluctuated between 8 and 9 g, but he remained transfusion independent since 02/11/2019. His repeat protein electrophoresis showed decrease in the M protein to 1.2 g/dL. He is seen for a follow-up visit. He has been feeling pretty good generally. He is doing light work. His appetite is good. He has no fever or night sweats. He has had a little bit of cough. He has no shortness of breath or chest pain. He has no GI or complaints. He has no significant joint or bone pain. He has had some headaches, mainly in the back of his head. He has no focal neurologic symptoms. Medications: Acetaminophen 1 (325 mg) Tablet Oral q 4 hours PRN, Acyclovir 1 Tablet (of 400 mg) Oral daily, Jadenu 1 Tablet (of 1620 mg) Oral daily, Levaquin 500 (500 mg) Tablet Oral PRN, Lyrica 1 Capsule (of 100 mg) Oral b.i.d., Multivitamin 1 Tablet Liquid Oral daily PRN, Pantoprazole Sodium 1 Tablet (of 40 mg) Tablet, enteric coated Oral daily PRN, predniSONE 20 mg (of 20 mg) Tablet Oral daily, Prochlorperazine Maleate 1 Tablet (of 10 mg) Oral q 4 hours PRN, Tamsulosin HCl 2 (0.4 mg) Capsule Oral at bedtime, vendexta 400 mg Tablet daily, Voltaren Gel (jelly) Transdermal PRN Allergies: No Known Allergies. Review of Systems: Constitutional - His energy is better. He is doing light work. His appetite is good and his weight is stable. No fever, chills, hot flashes, or night sweats. ECOG score is 1, ENMT - No sinus congestion/drainage. No mouth sores. No sore throat or difficulty swallowing, Hematologic/Lymphatic - No abnormal bruising or bleeding, Respiratory - No shortness of breath. He has a little bit of cough. No pleuritic pain or hemoptysis, Cardiovascular - No angina pain. No palpitations, Gastrointestinal - No nausea or vomiting. He has some heartburn, depending on what he eats. No diarrhea or constipation. No blood in the stool or black stools, Genitourinary (M) - No dysuria or hematuria. No urinary frequency. No urgency or incontinence, Musculoskeletal - No joint or bone pain, Integumentary - No skin complications, Neurologic - He has had some headaches, mainly in the back of his head. He has dizziness when his blood count is low. No numbness/paresthesias or other focal neurologic symptoms, Psychiatric - No anxiety or depression. No insomnia. Vital Signs: Performed on May 08, 2019 13:20 Height - 73.00 in Temperature - 97.5 F (LOW) Pulse - 68 /min Respiration - 18 /min BP - 110/64 mm(hg) O2 Sat - 94 % (LOW) Performed on May 08, 2019 08:20 Height - 73.00 in Weight - 156.6 lbs (HIGH) BSA - 1.94 sq.m BMI - 20.66 Temperature - 97.8 F (LOW) Pulse - 66 /min Respiration - 18 /min BP - 96/64 mm(hg) O2 Sat - 96 % Pain - 0 Physical Examination: Constitutional - He looks pretty good generally, Eyes - Sclerae nonicteric. Conjunctivae clear, ENMT - There are no other lesions noted in the oral cavity, Hematologic/Lymphatic - There is no cervical, clavicular, or axillary adenopathy noted, Respiratory - Lungs sound clear, Cardiovascular - Heart rhythm is regular. There is a III/ systolic murmur. There is no gallop or rub noted, Abdomen - Soft. Liver is not enlarged. Spleen is not palpable. There is no abdominal mass or ascites noted. There is no inguinal adenopathy noted, Extremities - No edema, Neurologic - No focal neurologic deficits noted. Lab/Imaging: Test performed on May 08, 2019 08:30 Sodium 136 mmol/L Potassium 4.2 mmol/L Chloride 101 mmol/L CO2 25 mmol/L Anion Gap 14.2 BUN 24 mg/dL Creatinine 1.1 mg/dL Cr Clearance (Est) 61.2500 mL/min Glucose 127 mg/dL Calcium 9.3 mg/dL Protein, Total 7.2 g/dL Albumin 2.7 g/dL Globulin 4.5 g/dL Bilirubin, Total 0.6 mg/dL ALT (SGPT) < 5 U/L AST (SGOT) 9 U/L Alkaline Phosphatase 95 IU/L WBC 5.9 10 3/uL RBC 3.27 10 6/uL HGB 9.5 g/dL HCT 29.2 % MCV 89.3 fL MCH 29.1 pg MCHC 32.5 g/dL RDW 14.0 % Platelet Count 304 10 3/cmm MPV 9.1 fL Neutrophils 4.7 10 3/uL Lymphocytes 0.4 10 3/uL Monocytes 0.4 10 3/uL Eosinophils 0.0 10 3/uL Basophils 0.0 10 3/uL Neutrophil % 80.7 % Lymphocyte % 6.0 % Monocyte % 6.6 % Eosinophil % 0.0 % Basophils % 0.2 % CBC Slide Review Slide Review Perform SLIDE REVIEW AGREES WITH AUTOMATED RESULTS Impression: 1. Patient with multiple malignancies including marginal zone lymphoma, stage IV renal cell carcinoma, and suspected myeloma. 2. He had initially presented in October 2015 with anemia and IgG kappa monoclonal gammopathy. 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 He also was found to have a large right renal mass. He underwent treatment with 6 weekly infusions of rituximab, completed on 01/20/2016. 3. Repeat bone marrow aspiration/biopsy on 02/23/2016 again showed 100% cellularity with complete effacement by a lymphoid proliferation. 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 4. He then had a second opinion evaluation with Dr. Mamadou Alvarado at [facility]. His evaluation there had included biopsy the right renal mass, with pathology reporting involvement with lymphoma. He was advised to continue treatment with a course of bendamustine/Rituxan chemotherapy, which began on 04/21/2016. He completed 3 cycles of treatment. He had prolonged but not severe neutropenia after the second cycle, and he did receive Neulasta prophylaxis with cycle 3. He tolerated the treatment well otherwise. However, he remained moderately anemic. His restaging CT abdomen/pelvis on 07/19/2016 showed resolution of the small mesenteric and retroperitoneal lymph nodes, but no significant change in the right renal mass. 5. His repeat bone marrow aspiration/biopsy on 08/02/2016 showed only a small amount of residual monoclonal B cells, estimated at 1-2% of the marrow cellularity. Slaughter restricted plasma cells were estimated at 20-25% of the cellularity, suspicious for plasma cell dyscrasia. His repeat protein electrophoresis showed an increase in his M protein to 1.57 g/dL. Skeletal survey showed no evidence of lytic bone involvement. Overall, the findings were felt to be consistent with myeloma. 6. He underwent left frontal craniotomy with excision of brain metastasis on 03/14/2017, pathology consistent with metastatic renal cell carcinoma. He underwent gamma knife radiosurgery to 4 additional brain lesions. 7. He underwent cytoreductive right laparoscopic radical nephrectomy on 05/03/2017. Pathology showed grade 2 renal cell carcinoma measuring 9.5 cm, clear cell type, pathologic stage T3a, NX. Since his initial presentation in October 2015 he has remained moderately anemic and transfusion dependent. The exact cause of the anemia remains uncertain, but it has not improved with treatment for the lymphoma or with surgical resection of the renal cell carcinoma. His follow-up brain MRI showed evidence of treated brain lesions and no indication of progression of metastatic disease in the brain. His restaging PET/CT on 08/11/2017 showed FDG avid lymph nodes at several sites, including the left supraclavicular area, superior mediastinum, subcarinal area, and retrocrural area. The largest of these measured 1.5 cm. There were no other areas of metastatic involvement noted. He underwent repeat bone marrow aspiration/biopsy and left cervical lymph node biopsy on 08/16/2017. 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 The bone marrow aspiration/biopsy was hypercellular, but with no diagnostic findings. There was a small amount of reticulin fibrosis noted. There was no increase in plasma cells and there was no evidence of lymphoma in the bone marrow. There also was no evidence of myelodysplastic syndrome. When those findings, I opted to follow him on observation and symptomatic/supportive measures. In August 2017 he began treatment with Jadenu 14 mg/kg daily for transfusion associated iron overload. His repeat head MRI on 10/23/2017 reported a new 5 mm lesion in the left posterior frontal lobe with a small amount of surrounding edema. All of the lesions which had been previously treated showed significant improvement. During subsequent follow-up he has remained transfusion dependent. He has started treatment with Jadenu for transfusion associated iron overload. His overall clinical status has been stable, but there was gradual increase in his M protein. Restaging PET/CT in January 2018 showed mild progression of lymphadenopathy, mainly in the carleen hepatis and retroperitoneal area. His repeat bone marrow aspiration/biopsy on 03/08/2018 showed extensive involvement with B-cell lymphoma, estimated at greater than 70% involvement. 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 Also noted was a kappa restricted plasma cell population estimated at 10% of the cellularity. On 04/08/2018 he began a course of treatment with cyclophosphamide, Velcade, and dexamethasone. He also started Procrit injections, and he was started on Jadenu for transfusion associated iron overload. His cycle 2 day 8 cyclophosphamide was held due to neutropenia. His cycle 3 was delayed by 1 week because his granulocyte count remained low, and that cycle was limited to just day 1 cyclophosphamide and day 1/day 4 Velcade. He continued with cycle 4 of cyclophosphamide/Velcade/dexamethasone on 06/24/2018, with cycle 5 on 07/16/2018, and with cycle 6 on 08/05/2018. His restaging bone marrow aspiration/biopsy 08/29/2018 showed 100% cellularity with 70-75% atypical lymphocytes, consistent with residual lymphoma. 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 There also was evidence of disease progression on his restaging PET/CT. On 09/09/2018 he was admitted to the hospital with pneumonia. He has been showing gradual recovery, but during this time he had a significant decline in his performance status. He remained transfusion dependent anemia, and he had moderately severe neutropenia and thrombocytopenia. In September 2018 he began trial of therapy with ibrutinib 420 mg daily. Within a short time he had become severely neutropenic, and the ibrutinib was put on hold. He subsequently did show some response to Neupogen, but with subsequant decline in the neutrophil count. He was then recommended to have a trial of therapy with venetoclax in combination with Neupogen or Neulasta. We were able to get approval for the venetoclax, but not the growth inhibitor. He had opted to put off the treatment until after hunting season. During follow-up he continued to have transfusion dependent anemia and a very significant IgG kappa monoclonal protein spike. He had a continued gradual decline in performance status. He fell at home and sustained multiple left rib fractures. His restaging CT scans on showed some progression of lymphadenopathy, though still not bulky. With evidence of disease progression and with declining performance status, I opted to have him begin treatment with venetoclax/rituximab. He began the venetoclax on 01/29/2019 and a dose of 20 mg daily. At that time I also had him start prednisone 20 mg daily. He was able to tolerate the low dosage of venetoclax with no adverse effects, and he then continued escalating the dosage per the standard protocol. As of 02/17/2019 he had continued to have moderately severe but stable neutropenia. He had also remained transfusion dependent. As of 02/19/2019 the venetoclax dosage was increased to 200 mg daily, and as of 02/26/2019 it was further escalated to 400 mg daily. As of 03/06/2019 his treatment was put on hold due to worsening neutropenia, ANC 200. He then started growth factor support with Neupogen. He had a very good response. Within 3 days his absolute neutrophil count had increased to 5400. He was able to restart venetoclax with no recurrence of the neutropenia. He then began cycle 1 of rituximab on 03/13/2019. He tolerated it with no adverse effects. He then continued the venetoclax at 400 mg daily and he continue with cycle 2 of rituximab on 04/10/2019. During this time, there was a significant increase in his platelet count and there also was a significant decline in his M protein, so that he does appear to be showing a significant response to the treatment. He has remained anemic with hemoglobin 8 to 9 g, but he has been transfusion independent since 02/11/2019. Plan: He will proceed with cycle 3 of rituximab at 375 mg/m??? by IV infusion. He continues venetoclax at 400 mg daily. He continues prednisone 10 mg daily. He will be scheduled for a followup visit in 4 weeks. In the meantime, he also will be scheduled for a repeat brain MRI, as it has been almost a year since his last study. Signed By: Ulysses Lazo M.D. <<Signature on File>>
[2019-05-14 11:18] LABS: Basophils % 0.2 %; Hematocrit 25.8 % (42.0-52.0); Hemoglobin 8.3 g/dL (11.7-16.6); Lymphocytes # 0.4 10^3/uL (0.8-4.8); Lymphocytes % 8.6 %; Mean Corpuscular HGB Conc 32.2 g/dL (30.0-36.0); Mean Corpuscular Volume 90.2 fL (80-94); Mean Platelet Volume 9.3 fL (7.4-10.4); Monocytes # 0.6 10^3/uL (0.2-0.9); Monocytes % 11.4 %; Neutrophils # 3.7 10^3/uL (1.8-7.7); Neutrophils % 73.4 %; Nucleated Red Blood Cells % 0 %; Platelet Count 345 10^3/cmm (130-400); Red Blood Count 2.86 10^6/uL (4.1-5.3)
[2019-05-14 12:03] LABS: Slide Review Slide Review Perform
[2019-05-15] VITALS (10 sets, daily range): BP systolic 92–121; BP diastolic 57–71; PULSE 57–75; RESP 18; TEMP 36.9–37.2; O2SAT 95–98
--- NOTE | 2019-05-15 12:15 | MR_ITS ---
WS: [id number] MRI BRAIN WITH AND WITHOUT CONTRAST HISTORY: BRAIN METS COMPARISON: 05/30/2018 and 02/11/2018 TECHNIQUE: Multiplanar imaging performed through the brain with Prohance 16 ml's IV. Status post LEFT frontal craniotomy with resection cavity in the LEFT frontal lobe and gliosis. Small amount of hemosiderin in the resection site. Significant change in appearance of the brain since the prior study. Innumerable enhancing lesions, s ome of these are ring-enhancing lesions scattered throughout the cerebrum, cerebellum and also the po ns. The largest lesions in the RIGHT cerebellum measuring 8 mm and posterior LEFT frontal lobe measur ing 7 mm in diameter with a large amount of surrounding edema. There are additional smaller metastati c sites scattered throughout the brain, greatest at the cortical medullary junction. Enhancing lesion involving the genu of the LEFT corpus callosum. There is a ring-enhancing lesion in the LEFT susan. S everal of these lesions have associated edema and hemosiderin. Similar smaller lesions do not have as sociated edema or hemorrhage. Paranasal sinuses: Mucous retention cyst LEFT maxillary sinus. Mastoid air cells: Normal. Calvarium and scalp: LEFT frontal craniotomy site. Notified Ulysses Lazo MD at 05/15/2019 1:52 PM. MR/MR head wo/w con [id number] IMPRESSION: 1. Significant change in appearance of the brain since 05/30/2018. Innumerable new metastatic sites throughout the cerebrum, cerebellum and brainstem. Increas ing edema surrounding several of these sites and evidence for associated hemorr danelle. 2. Prior LEFT craniotomy with stable gliosis and encephalomalacia LEFT frontal lobe.
== END 2019-05-20 23:59 | disposition home or self-care (01) ==
LOC: ONCMED 09:30
PROVIDERS: Internal Medicine Medical Oncology; Visit Provider Nurse Practitioner
DX: Z51.12 Encounter for antineoplastic immunotherapy (principal); C90.00 Multiple myeloma not having achieved remission; C64.1 Malignant neoplasm of right kidney, except renal pelvis; C79.31 Secondary malignant neoplasm of brain; C83.09 Small cell B-cell lymphoma, extranodal and solid organ sites; D64.9 Anemia, unspecified; E83.111 Hemochromatosis due to repeated red blood cell transfusions; Z79.899 Other long term (current) drug therapy; Z79.52 Long term (current) use of systemic steroids; Z92.3 Personal history of irradiation; Z87.01 Personal history of pneumonia (recurrent); Z90.5 Acquired absence of kidney
CPT/HCPCS: 36430; 70553; 80053; 85025; 86850; 86900; 86902; 86920; 96361; 96367; 96413; 96415; 99211; 99214; A9579; J1200; J7030; J7040; J7050; J9312; P9040

== ENCOUNTER 2019-06-19 06:47 | Outpatient (RCR) | payer OTHER, MEDICARE, SELFPAY ==
[2019-05-21 12:04] LABS: Basophils % 0.3 %; Hematocrit 25.6 % (42.0-52.0); Hemoglobin 8.3 g/dL (11.7-16.6); Lymphocytes # 0.8 10^3/uL (0.8-4.8); Lymphocytes % 12.4 %; Mean Corpuscular HGB Conc 32.4 g/dL (30.0-36.0); Mean Corpuscular Hemoglobin 29.3 pg (28.0-34.0); Mean Corpuscular Volume 90.5 fL (80-94); Mean Platelet Volume 9.6 fL (7.4-10.4); Monocytes # 0.7 10^3/uL (0.2-0.9); Monocytes % 10.6 %; Neutrophils # 4.5 10^3/uL (1.8-7.7); Neutrophils % 69.2 %; Nucleated Red Blood Cells % 0 %; Platelet Count 321 10^3/cmm (130-400); Red Blood Count 2.83 10^6/uL (4.1-5.3); Red Cell Distribution Width 14.3 % (12.1-15.1); White Blood Count 6.5 10^3/uL (4.0-10.0)
[2019-05-21 13:12] LABS: Slide Review Slide Review Perform
--- NOTE | 2019-05-28 | CT_ITS ---
Radiation Therapy Planning CT images; total exam DLP: 754.99 mGy-cm MTDD
[2019-05-28 12:01] LABS: Basophils % 0.2 %; Hematocrit 26.3 % (42.0-52.0); Hemoglobin 8.5 g/dL (11.7-16.6); Lymphocytes # 0.2 10^3/uL (0.8-4.8); Lymphocytes % 4.1 %; Mean Corpuscular HGB Conc 32.3 g/dL (30.0-36.0); Mean Corpuscular Hemoglobin 28.9 pg (28.0-34.0); Mean Corpuscular Volume 89.5 fL (80-94); Mean Platelet Volume 9.4 fL (7.4-10.4); Monocytes # 0.3 10^3/uL (0.2-0.9); Monocytes % 6.7 %; Neutrophils # 3.8 10^3/uL (1.8-7.7); Nucleated Red Blood Cells % 0 %; Platelet Count 299 10^3/cmm (130-400); Red Blood Count 2.94 10^6/uL (4.1-5.3); White Blood Count 4.6 10^3/uL (4.0-10.0)
[2019-05-28 13:16] LABS: Slide Review Slide Review Perform
--- NOTE | 2019-05-28 16:30 | ONCRAD EPV_ITS ---
Radiation Oncology Established Patient Visit Patient: Tomas MR#: [id number] : 1950> Age: 69> Sex: Male> Dictated by: Dr. Sathish Zurita Date of Service: 05/28/2019 Referring Physician(s) : Ulysses Lazo M.D. Diagnosis: C64.1 - Malignant neoplasm of right kidney, except renal pelvis, Diagnosed 05/15/2017 (Active) Stage IV, T3a, NX, M1 C79.31 - Secondary malignant neoplasm of brain, Diagnosed 03/29/2017 (Active) C90.00 - Multiple myeloma not having achieved remission, Diagnosed 10/16/2016 (Active) C85.80 - Other specified types of non-hodgkin lymphoma, unspecified site, Diagnosed 12/03/2015 (Active) Stage JOSEPHINE, IV, A Radiotherapy to Date: He has received gamma knife treatment for brain metastasis at [facility] in [facility] in the past. See prior records. Chief Complaint / History of Present Illness: Current Medications: Acetaminophen, acetaminophen, acyclovir, acyclovir, allopurinol, amLODIPine Besylate, bactrim DS, claritin-D 12 Hour, dexamethasone, diphenhydrAMINE HCl, flonase, hYDROcodone-Acetaminophen, jadenu, levaquin, lyrica, lyrica, marinol, multivitamin, neulasta Delivery Kit, nystatin, ondansetron HCl, pantoprazole Sodium, pantoprazole Sodium, predniSONE, prochlorperazine Maleate, prochlorperazine Maleate, requip, rituxan, riTUXimab, sildenafil Citrate, sodium Chloride, tamsulosin HCl, tamsulosin HCl, tylenol, venclexta, vendexta, voltaren, voltaren. Allergies: No Known Allergies Current Complaints / Review of Systems: . Vital Signs: Performed on 05/28/2019 1:31 PM BMI - 20.318 kg/m2, Height - 73.00 in, Weight - 154.0 lbs, Temperature - 98.8 f, Pulse - 67, Respiration - 20, O2 Sat - 97 %, Pain - 0 and BP - 107/ 70 mm(hg). Physical Exam: General: Alert and oriented x 3. No acute distress. HEENT: Normocephalic, atraumatic. Extraocular Movements Intact: Pupils Equal, Round, Reactive to Light and Accommodation: Sclerae anicteric. Oral cavity is clear without lesions, masses or ulcers. NECK: Supple without supraclavicular or jugular lymphadenopathy. LUNGS: Clear to auscultation bilaterally without rales, rhonchi or wheeze. HEART: Regular rate and rhythm, normal S1 and S2 without murmur, gallop or rub. MUSCULOSKELETAL: No tenderness or percussion pain over the axial skeleton, scapulae or pelvis. ABDOMEN: Soft, nontender, nondistended without masses or organomegaly. Bowell sounds are present. EXTREMITIES: No peripheral edema is identified. Limited motor and sensory examination are grossly intact and symmetric bilaterally. NEUROLOGIC: Cranial nerves II ???XII are grossly intact. Normal sensation, strength 5/5 in all extremities, normal gait, no ataxia. Performance Status: 1 - No physically strenuous activity, but ambulatory and able to carry out light or sedentary work (e.g. office work, light house work). (ECOG) Lab: None pending. Test performed on 11/19/2018 12:25 PM IgG - 4599 mg/dl (high), IgA - 21 mg/dl (low), IgM - 25 mg/dl (low), Test performed on 01/13/2019 7:30 AM eGFR - 54.6 ml/min (low), Manual Neutrophils Abs - 0.2 10 3/cmm (low), Manual Lymphocytes Abs - 0.6 10 3/cmm (low), Test performed on 01/28/2019 10:47 AM Klein Free Light Chains - 1653.0 mg/l (high), Klein/Lambda Free Ratio - 138.91 (high), Protein, SPE - 8.9 g/dl (high), Gamma Globulin - 3.6 g/dl (high), Test performed on 02/24/2019 12:19 PM Manual Segs - 80 % (high), Test performed on 03/06/2019 2:05 PM Klein / Lambda Ratio - 52.94 absolute value (high), Albumin, SPE - 2.2 g/dl (low), [id number] - 0.7 g/dl (high), Test performed on 04/10/2019 8:33 AM Ferritin - 9163 ng/ml (high), Test performed on 04/14/2019 4:50 AM ESR (Sed Rate) - 120 mm/hr (high), Iron - 197 ug/dl (high), Test performed on 05/08/2019 8:30 AM BUN - 24 mg/dl (high), Cr Clearance (Est) - 61.2500 ml/min (low), Glucose - 127 mg/dl (high), Albumin - 2.7 g/dl (low), Test performed on 05/14/2019 7:55 AM RBC - 2.86 10 6/ul (low), HGB - 8.3 g/dl (low), HCT - 25.8 % (low) and Lymphocytes - 0.4 10 3/ul (low). 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 They agreed with treatment as described above and he will undergo CT-guided simulation today. He will embark upon the planned course of radiation as soon as technically feasible. Signed by: 05/28/2019 4:29:00 PM <<Signature on File>> Time spent with patient: CPT Code: CPT Code:
[2019-06-02 09:19] LABS: Basophils % 0.4 %; Hematocrit 24.9 % (42.0-52.0); Hemoglobin 7.7 g/dL (11.7-16.6); Lymphocytes # 0.7 10^3/uL (0.8-4.8); Lymphocytes % 14.9 %; Mean Corpuscular HGB Conc 30.9 g/dL (30.0-36.0); Mean Corpuscular Hemoglobin 27.8 pg (28.0-34.0); Mean Corpuscular Volume 89.9 fL (80-94); Mean Platelet Volume 9.7 fL (7.4-10.4); Monocytes # 0.4 10^3/uL (0.2-0.9); Monocytes % 8.6 %; Neutrophils # 3.1 10^3/uL (1.8-7.7); Neutrophils % 68.8 %; Nucleated Red Blood Cells % 0 %; Platelet Count 327 10^3/cmm (130-400); Red Blood Count 2.77 10^6/uL (4.1-5.3); Red Cell Distribution Width 13.9 % (12.1-15.1); White Blood Count 4.5 10^3/uL (4.0-10.0)
[2019-06-02 09:32] LABS: Alanine Aminotransferase < 5 U/L (0-41); Albumin Level 3.3 g/dL (3.5-5.2); Alkaline Phosphatase 93 IU/L (40-130); Aspartate Amino Transferase 9 U/L (0-40); Blood Urea Nitrogen 21 mg/dL (8-23); Calcium 9.7 mg/dL (8.5-10.5); Carbon Dioxide 26 mmol/L (22-29); Chloride 98 mmol/L (98-107); Globulin 3.8 g/dL (1.3-4.6); Glucose 124 mg/dL (65-115); Iron 166 ug/dL (59-158); Lactate Dehydrogenase 86 U/L (135-225); Osmolality Calculated 280 mOsm/kg (285-295); Percent Saturation 52.8 % (20-50); Sodium 136 mmol/L (136-145); Total Bilirubin 0.4 mg/dL (0.15-1.2); Total Iron Binding Capacity 314 mcg/dl; Total Protein 7.1 g/dL (6.6-8.7); Unsaturated Iron Binding 148 ug/dL (112-347)
[2019-06-02 10:06] LABS: Ferritin 5613 ng/mL (30-400)
[2019-06-02 10:18] LABS: Erythrocyte Sedimentation Rate > 120 mm/hr (0-10)
[2019-06-03] VITALS (10 sets, daily range): BP systolic 95–110; BP diastolic 61–73; PULSE 58–67; RESP 18; TEMP 36.1–36.8; O2SAT 96–99
[2019-06-03 06:35] LABS: PROTEIN, TOTAL 5.9 g/dL (6.1-8.1)
[2019-06-03] MEDS: sodium chloride 0.9% 250 ML 999 ML IV (09:15)
[2019-06-03 12:36] LABS: KAPPA LIGHT CHAIN, FREE, SERUM 126.4 mg/L (3.3-19.4); KAPPA/LAMBDA LIGHT CHAINS FREE 13.74 (0.26-1.65); LAMBDA LIGHT CHAIN, FREE, SERU 9.2 mg/L (5.7-26.3)
[2019-06-03 15:45] LABS: ABNORMAL PROTEIN BAND 1 0.6 g/dL (NONE DETECTED); ALBUMIN 2.7 g/dL (3.8-4.8); ALPHA 1 GLOBULIN 0.7 g/dL (0.2-0.3); ALPHA 2 GLOBULIN 0.9 g/dL (0.5-0.9); BETA 1 GLOBULIN 0.3 g/dL (0.4-0.6); BETA 2 GLOBULIN 0.3 g/dL (0.2-0.5)
--- NOTE | 2019-06-03 20:48 | ONC FU_ITS ---
Dr. Lazo Patient Follow-Up Note Patient: Malik Montiel Unit #: [id number]: 1950 Dicatated By: Ulysses Lazo M.D.Date of Visit:Jun 03, 2019 Onc Med Follow-up/Prog Note Chief Complaint: Anemia/lymphoma/myeloma/renal cell cancer. 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 He had presented in October 2015 with fatigue, shortness of breath, dizziness, and numbness/tingling. He was found on CBC to have a hemoglobin of 6.7 g. He received a transfusion of 2 U of packed red blood cells on 11/12/2015, and he subsequently felt much better. He had further laboratory evaluation on 11/12/2015 including haptoglobin which was normal at 71.8 mg/dL, normal serum iron at 133 mcg/dL with transferrin saturation 33%, and normal ferritin at 301 ng/mL. LDH was normal 166 U/L. Folate was elevated. Protein electrophoresis showed an IgG kappa monoclonal protein quantitating at 0.90 g/dL. The free kappa light chain was elevated at 344 mg/L, and the kappa: lambda ratio was elevated at 26.31. Skeletal survey on 11/19/2015 showed no evidence of lytic bone involvement. He underwent bone marrow aspiration/biopsy on 11/29/2015. The bone marrow was packed, cellularity 100%. It was a dry tap, so there was no aspirate available for analysis. The biopsy touch preps showed a proliferation of atypical mononuclear cells consistent with lymphoid origin. The bone marrow differential, based on the biopsy, showed an estimated 84% lymphocytes. The findings were felt to be consistent with extensive bone marrow involvement with a small B cell lymphoma with a diffuse pattern of infiltration. Plasma cells were noted to be just slightly increased with a slight kappa predilection. The immunophenotype of the B cell neoplasm was felt to be nonspecific, but favored marginal zone lymphoma. Iron stores were present 1+/4+. At the time of the bone marrow biopsy, his hemoglobin was back down to 7.7 g, and he did receive an additional 2 U of packed red blood cells. Staging PET/CT on 12/04/2015 showed an 8 cm heterogeneous mass involving the anterior right kidney with low grade FDG uptake, consistent with a probable incidental right renal cell carcinoma. There were no obvious sites of lymphoma or soft tissue plasmacytoma. Given the bone marrow findings, treatment with single agent rituximab weekly for 6 weeks was recommended. He received his week 1 infusion of rituximab on 12/16/15. He did experience an infusion reaction with it, but he subsequently tolerated treatment well with Solu-Medrol premedication. As of 01/20/2016 he completed his sixth weekly infusion. During the treatment he did show some symptomatic improvement, but he remained moderately anemic. Repeat bone marrow aspiration/biopsy on 02/23/2016 again showed a dry tap, with no obtainable aspirate. The cellularity was 100% with complete effacement by lymphoid proliferation consistent with the previous diagnosis of small B-cell lymphoma favoring marginal zone lymphoma. Whole blood flow cytometry showed rare CD5/CD10 double negative monotypic B cells with dim kappa light chain. The cells were positive for CD23 and negative for FMC-7. IHC demonstrated dim CD20 as well as strong CD43 and BCL-2. The cells were negative for CD5, CD10, CD3, BCL-6, BRAF, and CD21. The MYD-88 mutation was not detected. The findings were felt to be diagnostic of a small B-cell lymphoma. CT scans of the chest, abdomen, and pelvis on 03/15/2016 showed the large right renal mass measuring 10.5 x 8.4 x 8.7 cm, similar to the prior PET/CT. Left supraclavicular, AP window, mesenteric, and retroperitoneal lymphadenopathy were present on the prior PET CT from 12/04/2015 and were FDG negative. Also noted was a 5 mm spiculated nodule in the right middle lobe and additional 2 mm scattered noncalcified nodules in the left upper lobe. With those findings, he was seen by Dr. Mamaduo Alvarado at [facility] for a second opinion evaluation. Evaluation included biopsy of the right renal mass, which did confirm involvement with lymphoma. He was recommended to continue treatment with a course of chemotherapy with bendamustine/Rituxan. He began cycle 1 of bendamustine/Rituxan on 04/21/2016. He was able to continue with cycle 2 on 05/19/2016 and with cycle 3 on 06/20/2016. The third cycle was delayed due to prolonged but not severe neutropenia. He was given Neulasta prophylactically with that cycle. He tolerated the treatment well, but there was still no improvement in his anemia. Restaging CT of the abdomen/pelvis on 07/19/2016 showed resolution of mesenteric and retroperitoneal lymphadenopathy, but no significant change in the complex right renal mass, measuring 10.5 x 8.7 x 9.2 cm. The spleen was still slightly enlarged. Repeat bone marrow aspiration/biopsy on 08/02/2016 showed persistent hypercellularity, estimated at 95-100%. Flow cytometry still showed evidence of a monoclonal B-cell population, but it accounted for only 1-2% of the marrow cellularity. Plasma cells were estimated at 10-20% with kappa light chain predominance, suggestive of plasma cell dyscrasia. Repeat protein electrophoresis showed persistent IgG kappa monoclonal protein, increased to 1.57 g/dL compared to 0.86 g/dL on 03/27/2016. The free kappa light chain was elevated at 753 mg/L with the kappa/lambda ration elevated at 70.64. A random urine showed a protein concentration of 8 mg/dL, 5.1% of which was monoclonal protein. Skeletal survey showed no lytic bone involvement. He returned to [facility] and he was seen by Dr. Jared Escobar on 10/16/2016. On their review of the bone marrow it was felt that the kappa restricted [id number] cells comprised 20 to 25% of the marrow aspirate, and he was recommended to begin treatment with KRd or VRd pending outcome of repeat bone marrow aspiration/biopsy and repeat staging PET/CT. PET/CT on 10/26/2016 showed FDG avid mixed cystic and solid right renal mass, SUV 2.1. A mildly prominent periaortic lymph node measuring 1.3 x 0.9 cm showed low-level uptake, SUV 2.7. A normal sized subcarinal lymph node showed mild hypermetabolism, SUV 2.5. There was no evidence of osseous involvement with myeloma. There was an abnormal focus of hypermetabolism within the left frontal cortex of the brain with maximum SUV 5.7, highly suspicious for neoplastic process. Further evaluation with brain MRI on 10/31/2016 showed numerous enhancing intraparenchymal metastatic lesions, estimated at 10-12 in number, the largest in the left frontal lobe measuring 2.1 cm. He returned to [facility] where he was admitted to the hospital and then completed additional evaluation with lumbar puncture and biopsy of the left frontal lobe mass. During that time he was transfused a total of 4 units of PRBC. He was discharged home on dexamethasone and Keppra. Pathology ultimately was nondiagnostic. During subsequent follow-up, he was tapered off dexamethasone. He then returned to [facility] and he underwent left frontal craniotomy with open biopsy of the left frontal lobe lesion. Pathology showed metastatic clear cell carcinoma consistent with renal primary. On 05/03/2017 he underwent right laparoscopic radical nephrectomy at [facility]. His tumor was noted to be locally advanced, with extension to the renal sinus, but it was completely resected. Pathology showed renal cell carcinoma measuring 9.5 cm, clear-cell type, WHO/ISUP grade 2. There was invasion of the renal sinus, but resection margins were uninvolved. There were no lymph nodes included in the specimen. Pathologic staging was pT3a, Nx. A noncontrast head CT on 06/07/2017 reported new multiple 5 mm hyperdense foci within the brain, but without a significant amount of surrounding edema or mass effect. He required further transfusions of packed red blood cells on 06/07/2017, on 07/03/2017, and on 07/19/2017. He had follow-up with Dr. Dereje Jones at [facility] on 07/24/2017. His repeat MRI at that time showed no evidence of recurrence within the left tumor cavity. The left posterior frontal treated lesion was noted to have less peritumoral edema and slightly less enhancement. The left insular tumor was difficult to detect, and the right posterior temporal tumors appeared approximately the same without any clear enhancement. Overall, it was felt that his brain lesions appeared adequately treated and with no new lesions identified. He was recommended to return for follow-up in 3 months. Restaging PET/CT on 08/11/2017 showed abnormal activity in the left supraclavicular lymph node, SUV 2.9. A 1 cm left superior mediastinal lymph node was FDG avid, SUV 4.4. A subcarinal lymph node measuring 1.5 cm was FDG avid with SUV 7.5 and a 1.5 cm right retrocrural node at the level of the diaphragmatic hiatus was noted to have mild abnormal FDG activity. Other small subcentimeter retroperitoneal lymph nodes showed no significant FDG activity. Multiple hepatic hypodensities were noted to be FDG negative and unchanged from the prior study in November 2015. There was no evidence of other metastatic disease. On 08/16/2017 he underwent repeat bone marrow aspiration/biopsy and biopsy of a left posterior cervical lymph node. Pathology on the lymph node showed small B-cell lymphoma with plasmacytic differentiation. The malignant cells were positive for CD45, CD19, CD20, CD23, and kappa light chain. They were negative for CD5, CD10, and FMC7. The reported differential included CD5 negative SLL/CLL versus marginal zone lymphoma. The bone marrow aspiration/biopsy was hypercellular with 100% cellularity. There was mild reticulin fibrosis noted. There were no overt dysplastic changes. There was no obvious infiltrative process identified. The flow cytometry demonstrated predominantly mature granulocytes. There were only rare polytypic B cells noted without aberrant antigen expression. There was no increase in CD34 positive blasts, CD117 positive immature precursors, or plasma cells. The FISH panels for myeloma and MDS were unrevealing, and the standard cytogenetic study was normal. Overall, the bone marrow was hypercellular but otherwise nondiagnostic. Given those findings, I had opted to just continue with observation and symptomatic/supportive measures. He remained transfusion dependent. His laboratory studies did show evidence of transfusion associated iron overload, and he then started treatment with Jadenu 14 mg/kg daily. A repeat brain MRI on 10/23/2017 showed postoperative changes of interval left frontal craniotomy with resection cavity and a small amount of surrounding glioma doses. A 5 mm enhancing lesion in the left posterior frontal lobe was felt to be new. There was associated small amount of surrounding edema and hemosiderin. The previously described enhancing lesions had showed interval resolution. There was interval significant improvement in the previously described edema. However, during follow-up he remained transfusion dependent, and there was gradual increase in his M protein. Restaging PET/CT on 02/02/2018 showed decrease in the left supraclavicular and left superior mediastinal lymph nodes which had been noted on the prior study. A 1.5 cm subcarinal lymph node appeared stable, SUV 8.8. There was progression of right retrocrural node and there was a new portal lymph node measuring 1.4 cm. Also noted were new bilateral retroperitoneal lymph nodes in the right and left periaortic chair territories. These were consistent with disease progression. In February 2017 he underwent reevaluation with Dr. Jared Escobar at [facility]. His repeat bone marrow aspiration/biopsy on 03/08/2018 showed extensive involvement with recurrent/persistent B-cell lymphoma, estimated at greater than 70% involvement. The morphologic and immunophenotypic features were felt to be most consistent with a B-cell lymphoma with plasmacytic differentiation. Also noted was a kappa restricted plasma cell population comprising 10% of the marrow cellularity. With those findings, it was recommended that he begin a course of chemotherapy with cyclophosphamide/Velcade/dexamethasone. He began cycle 1 of cyclophosphamide/Velcade/dexamethasone on 04/08/2018. He also started weekly Procrit injections for the anemia. He tolerated the treatment well and he was able to continue with cycle 2 on 04/29/2018. His cycle 2 day 8 cyclophosphamide and his day 11 Velcade were held and his cycle 3 was delayed due to neutropenia. He was able to continue with cycle 3 on 05/27/2018. It was again complicated by neutropenia, and that cycle was limited to day 1 cyclophosphamide and day 1/day 4 Velcade. During this time he continued Procrit injections weekly. He had remained transfusion dependent, though not as frequently. His repeat protein electrophoresis on 06/17/2018 showed stable M protein at 3.1 g/dL. He continued with cycle 4 of cyclophosphamide/Velcade/dexamethasone on 06/24/2018, with cycle 5 on 07/16/2018, and with cycle 6 on 08/05/2018. Repeat bone marrow aspiration/biopsy on 08/29/2018 showed hypercellular marrow at 100% cellularity with an atypical lymphoid proliferation comprising 70-75% of the hematopoietic population. Flow cytometry showed a monotypic B-cell population comprising 10% of the total cellularity. The B cells were positive for CD45, CD19, CD20, CD23, and kappa light chain. They were negative for CD5, CD10, and FMC7. Nucleated RBCs were noted to be markedly decreased and relative number. There was limited dyserythropoiesis. Ring sideroblasts were noted to comprise 10% of the population. 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 The FISH panel was positive for IGH gain ( trisomy for chromosomes 14 q/14 or IGH rearrangement). Restaging PET/CT on 08/31/2018 showed unchanged subcarinal mediastinal lymph node and interval development of new prevascular lymph node. There was interval progression of existing and development of new abdominal malignant adenopathy. Also noted was a new 5 mm right apical pulmonary nodule with SUV 3.7, suspicious for malignancy. On 09/09/2018 he was hospitalized with pneumonia. He had very gradual recovery following that illness, and during subsequent follow-up he remained transfusion dependent. He also has continued to have severe neutropenia, and his further chemotherapy has remain on hold. During this time he was treated with Neupogen, and he did show response, but his neutrophil count had then gradually declined again. I had seen him for a follow-up visit on 11/19/2018. At that point I had recommended a trial of therapy with venetoclax together with Neupogen or Neulasta. We were able to get insurance approval for the venetoclax, but not the growth factor. He had opted, though, to delay starting treatment until after deer hunting season. During that time, he continued to require PRBC transfusion on a regular basis. Sometime near the end of November 2018 he had fallen at home and sustained an injury to his left rib cage. Due to persistent pain in that area and to the delay in starting his treatment, I had recommended that he have restaging CT scans. His CT scans of the chest, abdomen, and pelvis on 01/27/2019 showed long-term stability of an irregular 5 mm pulmonary nodule in the right middle lobe. A right apical lymph node was no longer present. Left upper pneumonia appeared to have resolved. There was persistent small left pleural effusion but resolution of right pleural effusion. There were numerous small axillary, mediastinal, and hilar lymph nodes, largest in the subcarinal area measuring 2.5 x 2.0 cm. There were numerous left-sided rib fractures. The spleen was noted to be enlarged measuring 17.3 cm. Low-attenuation throughout the liver felt to be compatible with cysts. There appeared to be increasing size and number of retrocrural, mesenteric, and retroperitoneal adenopathy, but the increase was in the range of 2 to 3 mm in diameter. On 01/29/2019 he started treatment with venetoclax at 20 mg daily. I also had him start prednisone 20 mg daily. He tolerated the low dosage with no adverse effects, and he then continued to escalate the dosage per the standard protocol. As of 02/17/2019 he had persistent but stable neutropenia. He had remained transfusion dependent. As of 02/19/2019 the venetoclax dosage was increased to 200 mg daily, and as of 02/26/2019 it was further escalated to 400 mg daily. As of 03/06/2019 the venetoclax was put on hold due to worsening neutropenia, with ANC 200. He then started growth factor support with Neupogen 300 mcg daily. Within 3 days the white count had come up to 6300 with absolute neutrophil count 5400, and the Neupogen was stopped. At that point the platelet count had also increased significantly, from 134,000 to 199,000. He was then able to restart venetoclax at 400 mg daily with no recurrence of the neutropenia. He began cycle 1 of rituximab on 03/13/2019. He tolerated it well, and he continued the venetoclax 400 mg daily. He received cycle 2 of rituximab on 04/10/2019 and cycle 3 on 05/08/2019. During that time his hemoglobin had fluctuated between 8 and 9 g, and he had remained transfusion independent since 02/11/2019. His repeat protein electrophoresis on 04/10/2019 showed decrease in the M protein to 1.2 g/dL. However, during subsequent follow-up, there was further decline in his hemoglobin/hematocrit levels, and he again required PRBC transfusions. His past medical history is unremarkable. He has had no prior medical illnesses. His only other surgery was a hernia repair. He is a nonsmoker. INTERIM HISTORY: A repeat brain MRI on 05/15/2019 showed innumerable new metastatic sites throughout the cerebrum, cerebellum, and brainstem. There was increasing edema surrounding several sites and there was evidence for associated hemorrhage. That disc was forwarded to the radiation oncology department at [facility]. It was reviewed by Dr. Samantha Parks and due to the brainstem involvement, it was recommended that he initially undergo palliative whole brain radiation. He is seen for a follow-up visit. He has been feeling pretty good generally, though his energy is not 100%. He is able to do one big job every day plus a few light tasks. He does function better after transfusion. His ECOG score is 1. He has good appetite. He has no fever or night sweats. He has noticed a slight voice change and he has a little bit of cough. He does not complain of shortness of breath or chest pain. He has no GI or complaints. He has been having headache in the right occipital area, fairly constant. He does get some relief with Tylenol. He has no significant joint or bone pain. He has no focal neurologic symptoms. Medications: Acetaminophen 1 (325 mg) Tablet Oral q 4 hours PRN, Acyclovir 1 Tablet (of 400 mg) Oral daily, Jadenu 1 Tablet (of 1620 mg) Oral daily, Levaquin 500 (500 mg) Tablet Oral PRN, Lyrica 1 Capsule (of 100 mg) Oral b.i.d., Multivitamin 1 Tablet Liquid Oral daily PRN, Pantoprazole Sodium 1 Tablet (of 40 mg) Tablet, enteric coated Oral daily PRN, predniSONE 10 mg (of 10 mg) Tablet Oral daily, Prochlorperazine Maleate 1 Tablet (of 10 mg) Oral q 4 hours PRN, Tamsulosin HCl 2 (0.4 mg) Capsule Oral at bedtime, vendexta 400 mg Tablet daily, Voltaren Gel (jelly) Transdermal PRN Allergies: No Known Allergies. Review of Systems: Constitutional - His energy level is fair. He is able to complete one big job and a few small light tasks every day. His appetite is good and weight is stable. No fever, chills, hot flashes, or night sweats. ECOG score is 1, ENMT - No sinus congestion/drainage. No mouth sores. No sore throat or difficulty swallowing. He has noticed a slight voice change, Hematologic/Lymphatic - He bruises easily, Respiratory - No shortness of breath. He has a little cough. No pleuritic pain or hemoptysis, Cardiovascular - No angina pain. No palpitations, Gastrointestinal - No nausea or vomiting. No heartburn or acid reflux. No diarrhea or constipation. No blood in the stool or black stools, Genitourinary (M) - No dysuria or hematuria. No urinary frequency. No urgency or incontinence, Musculoskeletal - No other joint or bone pain, Integumentary - No skin complications, Neurologic - He is having headache in the right occupital area, fairly constant. He is taking Tylenol for this with some relief. No dizziness. No numbness/paresthesias or other focal neurologic symptoms, Psychiatric - No anxiety or depression. No insomnia. Vital Signs: Performed on Jun 03, 2019 08:13 Height - 73.00 in Weight - 156.0 lbs (HIGH) BSA - 1.94 sq.m BMI - 20.58 Temperature - 98.7 F Pulse - 80 /min Respiration - 20 /min BP - 111/75 mm(hg) O2 Sat - 95 % (LOW) Pain - 0 Physical Examination: Constitutional - He looks pretty good generally, Eyes - Sclerae nonicteric. Conjunctivae clear, ENMT - There are no lesions noted in the oral cavity, Hematologic/Lymphatic - There are small cervical nodes palpable on the left side. There is no clavicular or axillary adenopathy noted, Respiratory - Lungs sound clear, Cardiovascular - Heart rhythm is regular. There is a III/ systolic murmur. There is no gallop or rub noted, Abdomen - Soft. Liver is not enlarged. Spleen is not palpable. There is no abdominal mass or ascites noted. There is no inguinal adenopathy noted, Extremities - No edema, Neurologic - No focal neurologic deficits noted. Lab/Imaging: CBC shows hemoglobin 7.7 g, White blood cell count 4500, and platelet count 327,000. The differential shows 68% neutrophils, 14% lymphocytes, and 8% monocytes. Sed rate remains markedly elevated at greater than 120 mm/hour. Comprehensive metabolic profile shows stable renal function with BUN 21 and creatinine 1.1 mg/dL. The bilirubin and liver enzymes are normal. LDH is reported below normal range at 86 U/L. The serum iron studies show transferrin saturation 52.8%. The ferritin is significantly elevated at 5613 ng/mL. Protein electrophoresis shows decrease in the M protein to 0.6 g/dL. The maximum had been 3.0 g/dL. The free light chain assay showed elevated kappa light chain at 126.4 mg/L. The maximum had been 2795 mg/L. Impression: 1. Patient with multiple malignancies including marginal zone lymphoma, stage IV renal cell carcinoma, and suspected myeloma. 2. He had initially presented in October 2015 with anemia and IgG kappa monoclonal gammopathy. 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 He also was found to have a large right renal mass. He underwent treatment with 6 weekly infusions of rituximab, completed on 01/20/2016. 3. Repeat bone marrow aspiration/biopsy on 02/23/2016 again showed 100% cellularity with complete effacement by a lymphoid proliferation. 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 4. He then had a second opinion evaluation with Dr. Mamadou Alvarado at [facility]. His evaluation there had included biopsy the right renal mass, with pathology reporting involvement with lymphoma. He was advised to continue treatment with a course of bendamustine/Rituxan chemotherapy, which began on 04/21/2016. He completed 3 cycles of treatment. He had prolonged but not severe neutropenia after the second cycle, and he did receive Neulasta prophylaxis with cycle 3. He tolerated the treatment well otherwise. However, he remained moderately anemic. His restaging CT abdomen/pelvis on 07/19/2016 showed resolution of the small mesenteric and retroperitoneal lymph nodes, but no significant change in the right renal mass. 5. His repeat bone marrow aspiration/biopsy on 08/02/2016 showed only a small amount of residual monoclonal B cells, estimated at 1-2% of the marrow cellularity. [place] restricted plasma cells were estimated at 20-25% of the cellularity, suspicious for plasma cell dyscrasia. His repeat protein electrophoresis showed an increase in his M protein to 1.57 g/dL. Skeletal survey showed no evidence of lytic bone involvement. Overall, the findings were felt to be consistent with myeloma. 6. He underwent left frontal craniotomy with excision of brain metastasis on 03/14/2017, pathology consistent with metastatic renal cell carcinoma. He underwent gamma knife radiosurgery to 4 additional brain lesions. 7. He underwent cytoreductive right laparoscopic radical nephrectomy on 05/03/2017. Pathology showed grade 2 renal cell carcinoma measuring 9.5 cm, clear cell type, pathologic stage T3a, NX. 8. In August 2017 he began treatment with Jadenu 14 mg/kg daily for transfusion associated iron overload. 9. Restaging PET/CT in January 2018 showed mild progression of lymphadenopathy, mainly in the carleen hepatis and retroperitoneal area. His repeat bone marrow aspiration/biopsy on 03/08/2018 showed extensive involvement with B-cell lymphoma, estimated at greater than 70% involvement. 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 10. On 04/08/2018 he began a course of treatment with cyclophosphamide, Velcade, and dexamethasone. He had significant treatment delays due to cytopenias. He ultimately completed his 6 cycle of treatment In July 2018. 11. His restaging bone marrow aspiration/biopsy 08/29/2018 showed 100% cellularity with 70-75% atypical lymphocytes, consistent with residual lymphoma. 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 There also was evidence of disease progression on his restaging PET/CT. 12. On 09/09/2018 he was admitted to the hospital with pneumonia. He has been showing gradual recovery, but during this time he had a significant decline in his performance status. He remained transfusion dependent anemia, and he had moderately severe neutropenia and thrombocytopenia. 13. In September 2018 he began trial of therapy with ibrutinib 420 mg daily. Within a short time he had become severely neutropenic, and the ibrutinib was put on hold. 14. His restaging CT scans on 01/27/2019 showed some progression of lymphadenopathy, though still not bulky. With evidence of disease progression and with declining performance status, I opted to have him begin treatment with venetoclax/rituximab. He began the venetoclax on 01/29/2019 at a dose of 20 mg daily. At that time I also had him start prednisone 20 mg daily. He was able to tolerate the low dosage of venetoclax with no adverse effects, and he then continued escalating the dosage per the standard protocol. As of 02/17/2019 he had continued to have moderately severe but stable neutropenia. He had also remained transfusion dependent. As of 02/19/2019 the venetoclax dosage was increased to 200 mg daily, and as of 02/26/2019 it was further escalated to 400 mg daily. As of 03/06/2019 his treatment was put on hold due to worsening neutropenia, ANC 200. He then started growth factor support with Neupogen. He had a very good response. Within 3 days his absolute neutrophil count had increased to 5400. He was able to restart venetoclax with no recurrence of the neutropenia. He then began cycle 1 of rituximab on 03/13/2019. He tolerated it with no adverse effects. He then continued the venetoclax at 400 mg daily and he continue with cycle 2 of rituximab on 04/10/2019 and with cycle 3 on 05/08/2019. During treatment with venetoclax/rituximab there has been evidence of response with increase in the white blood cell count and platelet count and with a significant decrease in the M protein, now to 0.6 g/dL compared to a maximum of 3.0 g/dL. His hemoglobin initially appeared to be showing some improvement, but more recently he has become transfusion dependent again. His repeat brain MRI on 05/15/2019 showed multiple new small metastases involving the cerebrum, cerebellum, and brainstem. He has been recommended to undergo palliative whole brain radiation. Plan: He is being transfused 2 units PRBC today. He will return Sunday for cycle 4 of rituximab. He will then be starting his palliative whole brain radiation. I will plan a follow-up visit with him in 1 month. He will be scheduled for restaging PET/CT prior to that visit. I also will see if I can arrange for repeat bone marrow aspiration/biopsy. As there is now evidence for progression of the metastatic renal cell cancer, his further management will be very complex, and I will plan to contact Dr. Phillips and Dr. Alvarado at [facility] for guidance. Signed By: Ulysses Lazo M.D. <<Signature on File>>
[2019-06-05 20:22] LABS: Hematocrit 27.9 % (42.0-52.0); Hemoglobin 8.9 g/dL (11.7-16.6); Lymphocytes # 0.3 10^3/uL (0.8-4.8); Lymphocytes % 5.5 %; Mean Corpuscular HGB Conc 31.9 g/dL (30.0-36.0); Mean Corpuscular Hemoglobin 28.7 pg (28.0-34.0); Mean Platelet Volume 9.6 fL (7.4-10.4); Monocytes # 0.3 10^3/uL (0.2-0.9); Monocytes % 6.1 %; Neutrophils # 4.1 10^3/uL (1.8-7.7); Neutrophils % 82.9 %; Nucleated Red Blood Cells % 0 %; Platelet Count 335 10^3/cmm (130-400); Red Cell Distribution Width 14.1 % (12.1-15.1); White Blood Count 4.9 10^3/uL (4.0-10.0)
[2019-06-05 21:47] LABS: Slide Review Slide Review Perform
[2019-06-06] MEDS: acetaminophen 325 mg Tablet 650 MG PO (08:15)
[2019-06-06] MEDS: sodium chloride 0.9% 1,000 ML 999 ML IV (08:23)
[2019-06-09 19:31] LABS: Basophils % 0.2 %; Hematocrit 25.8 % (42.0-52.0); Hemoglobin 8.3 g/dL (11.7-16.6); Lymphocytes # 0.4 10^3/uL (0.8-4.8); Lymphocytes % 7.9 %; Mean Corpuscular HGB Conc 32.2 g/dL (30.0-36.0); Mean Corpuscular Hemoglobin 28.9 pg (28.0-34.0); Mean Corpuscular Volume 89.9 fL (80-94); Mean Platelet Volume 9.7 fL (7.4-10.4); Monocytes # 0.5 10^3/uL (0.2-0.9); Monocytes % 9.3 %; Neutrophils # 3.7 10^3/uL (1.8-7.7); Neutrophils % 77.6 %; Nucleated Red Blood Cells % 0 %; Platelet Count 358 10^3/cmm (130-400); Red Blood Count 2.87 10^6/uL (4.1-5.3); Red Cell Distribution Width 13.6 % (12.1-15.1); White Blood Count 4.8 10^3/uL (4.0-10.0)
[2019-06-12] VITALS (10 sets, daily range): BP systolic 91–112; BP diastolic 61–66; PULSE 61–69; RESP 18; TEMP 36.1–36.6; O2SAT 96–98
[2019-06-12 08:18] LABS: Basophils % 0.2 %; Hematocrit 22.2 % (42.0-52.0); Hemoglobin 7.2 g/dL (11.7-16.6); Lymphocytes # 0.2 10^3/uL (0.8-4.8); Lymphocytes % 5.2 %; Mean Corpuscular HGB Conc 32.4 g/dL (30.0-36.0); Mean Corpuscular Hemoglobin 28.6 pg (28.0-34.0); Mean Corpuscular Volume 88.1 fL (80-94); Mean Platelet Volume 9.3 fL (7.4-10.4); Monocytes # 0.4 10^3/uL (0.2-0.9); Monocytes % 9.1 %; Neutrophils # 3.7 10^3/uL (1.8-7.7); Nucleated Red Blood Cells % 0 %; Platelet Count 304 10^3/cmm (130-400); Red Blood Count 2.52 10^6/uL (4.1-5.3); Red Cell Distribution Width 13.4 % (12.1-15.1); White Blood Count 4.4 10^3/uL (4.0-10.0)
[2019-06-16 10:44] LABS: Hematocrit 27.3 % (42.0-52.0); Hemoglobin 8.9 g/dL (11.7-16.6); Lymphocytes # 0.2 10^3/uL (0.8-4.8); Mean Corpuscular HGB Conc 32.6 g/dL (30.0-36.0); Mean Corpuscular Volume 88.9 fL (80-94); Mean Platelet Volume 9.3 fL (7.4-10.4); Monocytes # 0.3 10^3/uL (0.2-0.9); Monocytes % 6.3 %; Neutrophils % 83.1 %; Nucleated Red Blood Cells % 0 %; Platelet Count 313 10^3/cmm (130-400); Red Blood Count 3.07 10^6/uL (4.1-5.3); White Blood Count 4.8 10^3/uL (4.0-10.0)
[2019-06-16 11:05] LABS: Slide Review Slide Review Perform
--- NOTE | 2019-06-17 14:00 | ONCRAD TMN_ITS ---
, adiation Oncology Weekly Treatment Management, Patient: Malik Montiel MR#: [id number] , : 1950> Age: 69> Sex: Male Dictated by: Dr. David Syed Date of Service: 06/17/2019 Referring Physician(s) : Ulysses Lazo M.D. Primary Diagnosis: C64.1 - Malignant neoplasm of right kidney, except renal pelvis, Diagnosed 05/15/2017 (Active) Stage IV, T3a, NX, M1 C79.31 - Secondary malignant neoplasm of brain, Diagnosed 03/29/2017 (Active) C90.00 - Multiple myeloma not having achieved remission, Diagnosed 10/16/2016 (Active) C85.80 - Other specified types of non-hodgkin lymphoma, unspecified site, Diagnosed 12/03/2015 (Active) Stage CALE, IV, A Radiotherapy to date: Course: Whole Brain 2019, Treatment Site: [id number], Ref. ID: [id number], , Energy: 15X/6X, Dose/Fx (cGy): 250, #Fx: , Dose Correction (cGy): 0, Total Dose (cGy): 1,000, Start Date: 06/12/2019, Elapsed Days: 5 Current Complaints/Interval History: Balance a bit off and a bit dizzy. Some mild LAY. Improved appetite with medication given by Dr. Lazo. Notes some double vision on left lateral gaze. On DXM once a day (4 mg?)Lives with , daughter and grandson. Not interested in medication change at this time when increased steroid treatment was discussed. Constitutional Complains of moderate fatigue. Denies lack of appetite, fever, night sweats and change in weight. Eyes Complains of double vision with looking towards the left. Denies blurred vision and photophobia. ENMT Denies ear pain, stomatitis and altered taste. Gastrointestinal Complains of nausea. Neurologic Complains of dizziness. Complains of abnormal gait in which he feels off balanced with walking. Complains of mild headaches occurring intermittently throughout the day. Denies disorientation and insomnia. Current Medications: Acetaminophen, acetaminophen, acyclovir, acyclovir, allopurinol, amLODIPine Besylate, bactrim DS, claritin-D 12 Hour, dexamethasone, diphenhydrAMINE HCl, flonase, hYDROcodone-Acetaminophen, jadenu, levaquin, lyrica, lyrica, marinol, multivitamin, neulasta Delivery Kit, nystatin, ondansetron HCl, pantoprazole Sodium, pantoprazole Sodium, predniSONE, prochlorperazine Maleate, prochlorperazine Maleate, requip, rituxan, riTUXimab, sildenafil Citrate, sodium Chloride, tamsulosin HCl, tamsulosin HCl, tylenol, venclexta, vendexta, voltaren, voltaren. Allergies: No Known Allergies Vital Signs: Performed on 06/17/2019 10:49 AM BMI - 20.371 kg/m2, Height - 73.00 in, Weight - 154.4 lbs, Temperature - 98.2 f, Pulse - 72, Respiration - 18, O2 Sat - 97 %, Pain - 1 and BP - 101/ 67 mm(hg). Physical Exam: Appears stable, no skin erythema or desquamation. Performance Status: 1 - No physically strenuous activity, but ambulatory and able to carry out light or sedentary work (e.g. office work, light house work). (ECOG) Lab: None pending in Radiation Oncology. Test performed on 11/19/2018 12:25 PM IgG - 4599 mg/dl (high), IgA - 21 mg/dl (low), IgM - 25 mg/dl (low), Test performed on 01/13/2019 7:30 AM eGFR - 54.6 ml/min (low), Manual Neutrophils Abs - 0.2 10 3/cmm (low), Manual Lymphocytes Abs - 0.6 10 3/cmm (low), Test performed on 01/28/2019 10:47 AM [place] Free Light Chains - 1653.0 mg/l (high), [place]/Lambda Free Ratio - 138.91 (high), Protein, SPE - 8.9 g/dl (high), Gamma Globulin - 3.6 g/dl (high), Test performed on 02/24/2019 12:19 PM Manual Segs - 80 % (high), Test performed on 03/06/2019 2:05 PM [place] / Lambda Ratio - 52.94 absolute value (high), Albumin, SPE - 2.2 g/dl (low), [id number] - 0.7 g/dl (high), Test performed on 06/02/2019 4:55 AM ESR (Sed Rate) - 120 mm/hr (high), Cr Clearance (Est) - 61.2500 ml/min (low), Glucose - 124 mg/dl (high), Albumin - 3.3 g/dl (low), Ferritin - 5613 ng/ml (high), Iron - 166 mcg/dl (high), % Iron Saturation - 52.8 % (high), LDH (Total) - 86 u/l (low), Test performed on 06/05/2019 10:45 AM RBC - 3.10 10 6/ul (low), HGB - 8.9 g/dl (low), HCT - 27.9 % (low) and Lymphocytes - 0.3 10 3/ul (low). Imaging: No new diagnostic imaging was performed since the last weekly treatment visit. All radiation therapy related imaging (including but not limited to kV, MV, and CBCT generated images) was reviewed. Appropriate changes, if any, were made to assure accurate target localization. Impression/Plan: Tolerating treatment well with expected side effects. Continue treatment as planned. Discussed increasing steroid coverage which he deferred at this time but will reconsider if symptoms increase. CPT: 61539 Signed by: Dr. David Syed>06/17/2019 1:58:08 PM <<Signature on File>>
[2019-06-19 10:43] LABS: Basophils % 0.2 %; Hematocrit 25.4 % (42.0-52.0); Hemoglobin 8.1 g/dL (11.7-16.6); Lymphocytes # 0.2 10^3/uL (0.8-4.8); Lymphocytes % 4.6 %; Mean Corpuscular HGB Conc 31.9 g/dL (30.0-36.0); Mean Corpuscular Hemoglobin 28.3 pg (28.0-34.0); Mean Corpuscular Volume 88.8 fL (80-94); Mean Platelet Volume 9.3 fL (7.4-10.4); Monocytes # 0.4 10^3/uL (0.2-0.9); Monocytes % 7.4 %; Neutrophils # 4.3 10^3/uL (1.8-7.7); Nucleated Red Blood Cells % 0 %; Platelet Count 319 10^3/cmm (130-400); Red Blood Count 2.86 10^6/uL (4.1-5.3); Red Cell Distribution Width 13.8 % (12.1-15.1); White Blood Count 5.3 10^3/uL (4.0-10.0)
[2019-06-19 11:03] LABS: Slide Review Slide Review Perform
== END 2019-06-19 11:59 | disposition home or self-care (01) ==
LOC: ONCMED 06:47
PROVIDERS: Nurse Practitioner; Radiology Radiation Oncology; Absent Provider Radiology Radiation Oncology; Visit Provider Internal Medicine Medical Oncology
DX: Z51.0 Encounter for antineoplastic radiation therapy (principal); Z51.12 Encounter for antineoplastic immunotherapy; C79.31 Secondary malignant neoplasm of brain; C85.80 Other specified types of non-Hodgkin lymphoma, unspecified site; C64.1 Malignant neoplasm of right kidney, except renal pelvis; C90.00 Multiple myeloma not having achieved remission; D70.1 Agranulocytosis secondary to cancer chemotherapy; T45.1X5A Adverse effect of antineoplastic and immunosuppressive drugs, initial encounter; Z79.52 Long term (current) use of systemic steroids; Z90.5 Acquired absence of kidney; Z79.899 Other long term (current) drug therapy
CPT/HCPCS: 36415; 36430; 77290; 77295; 77300; 77334; 77336; 77387; 77412; 80053; 82728; 83540; 83550; 83615; 83883; 84155; 84165; 85025; 85651; 86850; 86900; 86902; 86920; 96361; 96367; 96413; 96415; 99211; 99214; J1200; J7030; J7040; J7050; J9312; P9040

== ENCOUNTER 2019-07-16 07:06 | Outpatient (RCR) | payer OTHER, MEDICARE, SELFPAY ==
[2019-06-20] VITALS (10 sets, daily range): BP systolic 95–119; BP diastolic 57–69; PULSE 56–63; RESP 18; TEMP 36.3–36.6; O2SAT 96–99
[2019-06-23 10:41] LABS: Hematocrit 28.3 % (42.0-52.0); Hemoglobin 9.3 g/dL (11.7-16.6); Lymphocytes # 0.3 10^3/uL (0.8-4.8); Lymphocytes % 6.6 %; Mean Corpuscular HGB Conc 32.9 g/dL (30.0-36.0); Mean Corpuscular Hemoglobin 28.6 pg (28.0-34.0); Mean Corpuscular Volume 87.1 fL (80-94); Mean Platelet Volume 9.2 fL (7.4-10.4); Monocytes # 0.4 10^3/uL (0.2-0.9); Monocytes % 9.4 %; Neutrophils # 3.4 10^3/uL (1.8-7.7); Neutrophils % 80.2 %; Nucleated Red Blood Cells % 0 %; Platelet Count 287 10^3/cmm (130-400); Red Blood Count 3.25 10^6/uL (4.1-5.3); White Blood Count 4.2 10^3/uL (4.0-10.0)
--- NOTE | 2019-06-25 14:22 | ONCRAD TMN_ITS ---
Radiation Oncology Weekly Treatment Management Patient: Malik Montiel MR#: [id number] : 1950> Age: 69> Sex: Male Dictated by: Dr. David Syed Date of Service: 06/25/2019 Referring Physician(s) : Ulysses Lazo M.D. Primary Diagnosis: C64.1 - Malignant neoplasm of right kidney, except renal pelvis, Diagnosed 05/15/2017 (Active) Stage IV, T3a, NX, M1 C79.31 - Secondary malignant neoplasm of brain, Diagnosed 03/29/2017 (Active) C90.00 - Multiple myeloma not having achieved remission, Diagnosed 10/16/2016 (Active) C85.80 - Other specified types of non-hodgkin lymphoma, unspecified site, Diagnosed 12/03/2015 (Active) Stage CALE, IV, A Radiotherapy to date: Course: Whole Brain 2019, Treatment Site: [id number], Ref. ID: [id number], Energy: 15X/6X, Dose/Fx (cGy): 250, #Fx: , Dose Correction (cGy): 0, Total Dose (cGy): 2,500, Start Date: 06/12/2019, Elapsed Days: 13 Current Complaints/Interval History: Some increase of double vision and unsteady gait. Some LAY that feels are worse. Using Tylenol for relief. Rx for DXM given yesterday and not yet filled. Discussed the MRI findings of multiple tiny brain mets with edema are present. Constitutional Complains of lack of appetite. Complains of mild fatigue. Complains of change in weight down 3 lbs. since last week. Denies fever and night sweats. Eyes Complains of blurred vision and double vision. ENMT Denies stomatitis and altered taste. Gastrointestinal Complains of nausea. Denies vomiting. Neurologic Complains of frequent dizziness. Complains of abnormal gait gets off balanced with walking. Complains of headaches occurring intermittently throughout the day Also will wake up during the night with one.. Denies insomnia. Current Medications: Acetaminophen, acetaminophen, acyclovir, acyclovir, allopurinol, amLODIPine Besylate, aspirin, bactrim DS, cetirizine HCl, claritin-D 12 Hour, decadron, dexamethasone, diphenhydrAMINE HCl, flonase, hYDROcodone-Acetaminophen, jadenu, levaquin, linezolid, lyrica, lyrica, marinol, multivitamin, neulasta Delivery Kit, nystatin, ondansetron HCl, pantoprazole Sodium, pantoprazole Sodium, predniSONE, prochlorperazine Maleate, prochlorperazine Maleate, requip, rituxan, riTUXimab, sildenafil Citrate, sodium Chloride, tamsulosin HCl, tamsulosin HCl, tylenol, venclexta, vendexta, voltaren, voltaren, zofran ODT. Allergies: No Known Allergies Vital Signs: Performed on 06/25/2019 11:25 AM BMI - 19.975 kg/m2, Height - 73.00 in, Weight - 151.4 lbs, Temperature - 98.9 f, Pulse - 60, Respiration - 18, O2 Sat - 99 %, Pain - 0 and BP - 123/ 74 mm(hg). Physical Exam: Appears stable, no skin erythema or desquamation. Performance Status: 1 - No physically strenuous activity, but ambulatory and able to carry out light or sedentary work (e.g. office work, light house work). (ECOG) Lab: None pending in Radiation Oncology. Test performed on 01/13/2019 7:30 AM eGFR - 54.6 ml/min (low), Manual Neutrophils Abs - 0.2 10 3/cmm (low), Manual Lymphocytes Abs - 0.6 10 3/cmm (low), Test performed on 01/28/2019 10:47 AM [place] Free Light Chains - 1653.0 mg/l (high), [place]/Lambda Free Ratio - 138.91 (high), Protein, SPE - 8.9 g/dl (high), Gamma Globulin - 3.6 g/dl (high), Test performed on 02/24/2019 12:19 PM Manual Segs - 80 % (high), Test performed on 03/06/2019 2:05 PM [place] / Lambda Ratio - 52.94 absolute value (high), Albumin, SPE - 2.2 g/dl (low), [id number] - 0.7 g/dl (high), Test performed on 06/02/2019 4:55 AM ESR (Sed Rate) - 120 mm/hr (high), Cr Clearance (Est) - 61.2500 ml/min (low), Glucose - 124 mg/dl (high), Albumin - 3.3 g/dl (low), Ferritin - 5613 ng/ml (high), Iron - 166 mcg/dl (high), % Iron Saturation - 52.8 % (high), LDH (Total) - 86 u/l (low), Test performed on 06/05/2019 10:45 AM RBC - 3.10 10 6/ul (low), HGB - 8.9 g/dl (low), HCT - 27.9 % (low) and Lymphocytes - 0.3 10 3/ul (low). Imaging: No new diagnostic imaging was performed since the last weekly treatment visit. All radiation therapy related imaging (including but not limited to kV, MV, and CBCT generated images) was reviewed. Appropriate changes, if any, were made to assure accurate target localization. Impression/Plan: Tolerating treatment well with expected side effects. Continue treatment as planned. Increased steroids. Prednisone stopped nad DXN begun at 4 mg TID beginning today. Also discussed need for advanced directives, DPOA and consideration of hospice in the near future. CPT: 52195 Signed by: Dr. David Syed>06/25/2019 2:20:24 PM <<Signature on File>>
[2019-06-26 10:51] LABS: Hemoglobin 9.2 g/dL (11.7-16.6); Lymphocytes # 0.3 10^3/uL (0.8-4.8); Lymphocytes % 5.4 %; Mean Corpuscular HGB Conc 32.9 g/dL (30.0-36.0); Mean Corpuscular Hemoglobin 29.1 pg (28.0-34.0); Mean Corpuscular Volume 88.6 fL (80-94); Mean Platelet Volume 9.3 fL (7.4-10.4); Monocytes # 0.3 10^3/uL (0.2-0.9); Monocytes % 5.4 %; Neutrophils # 3.7 10^3/uL (1.8-7.7); Nucleated Red Blood Cells % 0 %; Platelet Count 296 10^3/cmm (130-400); Red Blood Count 3.16 10^6/uL (4.1-5.3); Red Cell Distribution Width 13.7 % (12.1-15.1); White Blood Count 4.9 10^3/uL (4.0-10.0)
[2019-06-26 11:16] LABS: Slide Review Slide Review Perform
[2019-06-30 15:28] LABS: Hematocrit 28.1 % (42.0-52.0); Hemoglobin 8.8 g/dL (11.7-16.6); Lymphocytes # 0.3 10^3/uL (0.8-4.8); Lymphocytes % 3.7 %; Mean Corpuscular HGB Conc 31.3 g/dL (30.0-36.0); Mean Corpuscular Hemoglobin 28.9 pg (28.0-34.0); Mean Corpuscular Volume 92.1 fL (80-94); Mean Platelet Volume 9.5 fL (7.4-10.4); Monocytes # 0.4 10^3/uL (0.2-0.9); Monocytes % 6.4 %; Neutrophils # 5.6 10^3/uL (1.8-7.7); Neutrophils % 82.5 %; Nucleated Red Blood Cells % 0 %; Platelet Count 346 10^3/cmm (130-400); Red Blood Count 3.05 10^6/uL (4.1-5.3); Red Cell Distribution Width 13.8 % (12.1-15.1); White Blood Count 6.7 10^3/uL (4.0-10.0)
[2019-06-30 15:39] LABS: Alanine Aminotransferase < 5 U/L (0-41); Albumin Level 3.7 g/dL (3.5-5.2); Alkaline Phosphatase 87 IU/L (40-130); Anion Gap 15.6 (5-19); Aspartate Amino Transferase 9 U/L (0-40); Blood Urea Nitrogen 29 mg/dL (8-23); Calcium 9.9 mg/dL (8.5-10.5); Carbon Dioxide 25 mmol/L (22-29); Chloride 103 mmol/L (98-107); Globulin 3.5 g/dL (1.3-4.6); Glucose 110 mg/dL (65-115); Iron 218 ug/dL (59-158); Lactate Dehydrogenase 113 U/L (135-225); Osmolality Calculated 286 mOsm/kg (285-295); Percent Saturation 54.2 % (20-50); Potassium 4.6 mmol/L (3.5-5.1); Sodium 139 mmol/L (136-145); Total Bilirubin 0.4 mg/dL (0.15-1.2); Total Iron Binding Capacity 402 mcg/dl; Total Protein 7.2 g/dL (6.6-8.7); Unsaturated Iron Binding 184 ug/dL (112-347)
[2019-06-30 15:59] LABS: Slide Review Slide Review Perform
[2019-06-30 16:41] LABS: Erythrocyte Sedimentation Rate 34 mm/hr (0-10)
[2019-07-01 08:26] LABS: PROTEIN, TOTAL 6.1 g/dL (6.1-8.1)
[2019-07-01 13:07] LABS: ABNORMAL PROTEIN BAND 1 0.5 g/dL (NONE DETECTED); ALPHA 1 GLOBULIN 0.7 g/dL (0.2-0.3); ALPHA 2 GLOBULIN 0.9 g/dL (0.5-0.9); BETA 1 GLOBULIN 0.4 g/dL (0.4-0.6); BETA 2 GLOBULIN 0.3 g/dL (0.2-0.5); GAMMA GLOBULIN 0.9 g/dL (0.8-1.7)
--- NOTE | 2019-07-02 06:54 | ONC FU_ITS ---
Dr. Lazo Patient Follow-Up Note Patient: Malik Montiel Unit #: [id number]: 1950 Dicatated By: Ulysses Lazo M.D.Date of Visit:July 01, 2019 Onc Med Follow-up/Prog Note Chief Complaint: Anemia/lymphoma/myeloma/renal cell cancer. 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 He had presented in October 2015 with fatigue, shortness of breath, dizziness, and numbness/tingling. He was found on CBC to have a hemoglobin of 6.7 g. He received a transfusion of 2 U of packed red blood cells on 11/12/2015, and he subsequently felt much better. He had further laboratory evaluation on 11/12/2015 including haptoglobin which was normal at 71.8 mg/dL, normal serum iron at 133 mcg/dL with transferrin saturation 33%, and normal ferritin at 301 ng/mL. LDH was normal 166 U/L. Folate was elevated. Protein electrophoresis showed an IgG kappa monoclonal protein quantitating at 0.90 g/dL. The free kappa light chain was elevated at 344 mg/L, and the kappa: lambda ratio was elevated at 26.31. Skeletal survey on 11/19/2015 showed no evidence of lytic bone involvement. He underwent bone marrow aspiration/biopsy on 11/29/2015. The bone marrow was packed, cellularity 100%. It was a dry tap, so there was no aspirate available for analysis. The biopsy touch preps showed a proliferation of atypical mononuclear cells consistent with lymphoid origin. The bone marrow differential, based on the biopsy, showed an estimated 84% lymphocytes. The findings were felt to be consistent with extensive bone marrow involvement with a small B cell lymphoma with a diffuse pattern of infiltration. Plasma cells were noted to be just slightly increased with a slight kappa predilection. The immunophenotype of the B cell neoplasm was felt to be nonspecific, but favored marginal zone lymphoma. Iron stores were present 1+/4+. At the time of the bone marrow biopsy, his hemoglobin was back down to 7.7 g, and he did receive an additional 2 U of packed red blood cells. Staging PET/CT on 12/04/2015 showed an 8 cm heterogeneous mass involving the anterior right kidney with low grade FDG uptake, consistent with a probable incidental right renal cell carcinoma. There were no obvious sites of lymphoma or soft tissue plasmacytoma. Given the bone marrow findings, treatment with single agent rituximab weekly for 6 weeks was recommended. He received his week 1 infusion of rituximab on 12/16/15. He did experience an infusion reaction with it, but he subsequently tolerated treatment well with Solu-Medrol premedication. As of 01/20/2016 he completed his sixth weekly infusion. During the treatment he did show some symptomatic improvement, but he remained moderately anemic. Repeat bone marrow aspiration/biopsy on 02/23/2016 again showed a dry tap, with no obtainable aspirate. The cellularity was 100% with complete effacement by lymphoid proliferation consistent with the previous diagnosis of small B-cell lymphoma favoring marginal zone lymphoma. Whole blood flow cytometry showed rare CD5/CD10 double negative monotypic B cells with dim kappa light chain. The cells were positive for CD23 and negative for FMC-7. IHC demonstrated dim CD20 as well as strong CD43 and BCL-2. The cells were negative for CD5, CD10, CD3, BCL-6, BRAF, and CD21. The MYD-88 mutation was not detected. The findings were felt to be diagnostic of a small B-cell lymphoma. CT scans of the chest, abdomen, and pelvis on 03/15/2016 showed the large right renal mass measuring 10.5 x 8.4 x 8.7 cm, similar to the prior PET/CT. Left supraclavicular, AP window, mesenteric, and retroperitoneal lymphadenopathy were present on the prior PET CT from 12/04/2015 and were FDG negative. Also noted was a 5 mm spiculated nodule in the right middle lobe and additional 2 mm scattered noncalcified nodules in the left upper lobe. With those findings, he was seen by Dr. Mamadou Alvarado at [facility] for a second opinion evaluation. Evaluation included biopsy of the right renal mass, which did confirm involvement with lymphoma. He was recommended to continue treatment with a course of chemotherapy with bendamustine/Rituxan. He began cycle 1 of bendamustine/Rituxan on 04/21/2016. He was able to continue with cycle 2 on 05/19/2016 and with cycle 3 on 06/20/2016. The third cycle was delayed due to prolonged but not severe neutropenia. He was given Neulasta prophylactically with that cycle. He tolerated the treatment well, but there was still no improvement in his anemia. Restaging CT of the abdomen/pelvis on 07/19/2016 showed resolution of mesenteric and retroperitoneal lymphadenopathy, but no significant change in the complex right renal mass, measuring 10.5 x 8.7 x 9.2 cm. The spleen was still slightly enlarged. Repeat bone marrow aspiration/biopsy on 08/02/2016 showed persistent hypercellularity, estimated at 95-100%. Flow cytometry still showed evidence of a monoclonal B-cell population, but it accounted for only 1-2% of the marrow cellularity. Plasma cells were estimated at 10-20% with kappa light chain predominance, suggestive of plasma cell dyscrasia. Repeat protein electrophoresis showed persistent IgG kappa monoclonal protein, increased to 1.57 g/dL compared to 0.86 g/dL on 03/27/2016. The free kappa light chain was elevated at 753 mg/L with the kappa/lambda ration elevated at 70.64. A random urine showed a protein concentration of 8 mg/dL, 5.1% of which was monoclonal protein. Skeletal survey showed no lytic bone involvement. He returned to [facility] and he was seen by Dr. Jared Escobar on 10/16/2016. On their review of the bone marrow it was felt that the kappa restricted [id number] cells comprised 20 to 25% of the marrow aspirate, and he was recommended to begin treatment with KRd or VRd pending outcome of repeat bone marrow aspiration/biopsy and repeat staging PET/CT. PET/CT on 10/26/2016 showed FDG avid mixed cystic and solid right renal mass, SUV 2.1. A mildly prominent periaortic lymph node measuring 1.3 x 0.9 cm showed low-level uptake, SUV 2.7. A normal sized subcarinal lymph node showed mild hypermetabolism, SUV 2.5. There was no evidence of osseous involvement with myeloma. There was an abnormal focus of hypermetabolism within the left frontal cortex of the brain with maximum SUV 5.7, highly suspicious for neoplastic process. Further evaluation with brain MRI on 10/31/2016 showed numerous enhancing intraparenchymal metastatic lesions, estimated at 10-12 in number, the largest in the left frontal lobe measuring 2.1 cm. He returned to [facility] where he was admitted to the hospital and then completed additional evaluation with lumbar puncture and biopsy of the left frontal lobe mass. During that time he was transfused a total of 4 units of PRBC. He was discharged home on dexamethasone and Keppra. Pathology ultimately was nondiagnostic. During subsequent follow-up, he was tapered off dexamethasone. He then returned to [facility] and he underwent left frontal craniotomy with open biopsy of the left frontal lobe lesion. Pathology showed metastatic clear cell carcinoma consistent with renal primary. On 05/03/2017 he underwent right laparoscopic radical nephrectomy at [facility]. His tumor was noted to be locally advanced, with extension to the renal sinus, but it was completely resected. Pathology showed renal cell carcinoma measuring 9.5 cm, clear-cell type, WHO/ISUP grade 2. There was invasion of the renal sinus, but resection margins were uninvolved. There were no lymph nodes included in the specimen. Pathologic staging was pT3a, Nx. A noncontrast head CT on 06/07/2017 reported new multiple 5 mm hyperdense foci within the brain, but without a significant amount of surrounding edema or mass effect. He required further transfusions of packed red blood cells on 06/07/2017, on 07/03/2017, and on 07/19/2017. He had follow-up with Dr. Dereje Jones at [facility] on 07/24/2017. His repeat MRI at that time showed no evidence of recurrence within the left tumor cavity. The left posterior frontal treated lesion was noted to have less peritumoral edema and slightly less enhancement. The left insular tumor was difficult to detect, and the right posterior temporal tumors appeared approximately the same without any clear enhancement. Overall, it was felt that his brain lesions appeared adequately treated and with no new lesions identified. He was recommended to return for follow-up in 3 months. Restaging PET/CT on 08/11/2017 showed abnormal activity in the left supraclavicular lymph node, SUV 2.9. A 1 cm left superior mediastinal lymph node was FDG avid, SUV 4.4. A subcarinal lymph node measuring 1.5 cm was FDG avid with SUV 7.5 and a 1.5 cm right retrocrural node at the level of the diaphragmatic hiatus was noted to have mild abnormal FDG activity. Other small subcentimeter retroperitoneal lymph nodes showed no significant FDG activity. Multiple hepatic hypodensities were noted to be FDG negative and unchanged from the prior study in November 2015. There was no evidence of other metastatic disease. On 08/16/2017 he underwent repeat bone marrow aspiration/biopsy and biopsy of a left posterior cervical lymph node. Pathology on the lymph node showed small B-cell lymphoma with plasmacytic differentiation. The malignant cells were positive for CD45, CD19, CD20, CD23, and kappa light chain. They were negative for CD5, CD10, and FMC7. The reported differential included CD5 negative SLL/CLL versus marginal zone lymphoma. The bone marrow aspiration/biopsy was hypercellular with 100% cellularity. There was mild reticulin fibrosis noted. There were no overt dysplastic changes. There was no obvious infiltrative process identified. The flow cytometry demonstrated predominantly mature granulocytes. There were only rare polytypic B cells noted without aberrant antigen expression. There was no increase in CD34 positive blasts, CD117 positive immature precursors, or plasma cells. The FISH panels for myeloma and MDS were unrevealing, and the standard cytogenetic study was normal. Overall, the bone marrow was hypercellular but otherwise nondiagnostic. Given those findings, I had opted to just continue with observation and symptomatic/supportive measures. He remained transfusion dependent. His laboratory studies did show evidence of transfusion associated iron overload, and he then started treatment with Jadenu 14 mg/kg daily. A repeat brain MRI on 10/23/2017 showed postoperative changes of interval left frontal craniotomy with resection cavity and a small amount of surrounding glioma doses. A 5 mm enhancing lesion in the left posterior frontal lobe was felt to be new. There was associated small amount of surrounding edema and hemosiderin. The previously described enhancing lesions had showed interval resolution. There was interval significant improvement in the previously described edema. However, during follow-up he remained transfusion dependent, and there was gradual increase in his M protein. Restaging PET/CT on 02/02/2018 showed decrease in the left supraclavicular and left superior mediastinal lymph nodes which had been noted on the prior study. A 1.5 cm subcarinal lymph node appeared stable, SUV 8.8. There was progression of right retrocrural node and there was a new portal lymph node measuring 1.4 cm. Also noted were new bilateral retroperitoneal lymph nodes in the right and left periaortic chair territories. These were consistent with disease progression. In February 2017 he underwent reevaluation with Dr. Jared Escobar at [facility]. His repeat bone marrow aspiration/biopsy on 03/08/2018 showed extensive involvement with recurrent/persistent B-cell lymphoma, estimated at greater than 70% involvement. The morphologic and immunophenotypic features were felt to be most consistent with a B-cell lymphoma with plasmacytic differentiation. Also noted was a kappa restricted plasma cell population comprising 10% of the marrow cellularity. With those findings, it was recommended that he begin a course of chemotherapy with cyclophosphamide/Velcade/dexamethasone. He began cycle 1 of cyclophosphamide/Velcade/dexamethasone on 04/08/2018. He also started weekly Procrit injections for the anemia. He tolerated the treatment well and he was able to continue with cycle 2 on 04/29/2018. His cycle 2 day 8 cyclophosphamide and his day 11 Velcade were held and his cycle 3 was delayed due to neutropenia. He was able to continue with cycle 3 on 05/27/2018. It was again complicated by neutropenia, and that cycle was limited to day 1 cyclophosphamide and day 1/day 4 Velcade. During this time he continued Procrit injections weekly. He had remained transfusion dependent, though not as frequently. His repeat protein electrophoresis on 06/17/2018 showed stable M protein at 3.1 g/dL. He continued with cycle 4 of cyclophosphamide/Velcade/dexamethasone on 06/24/2018, with cycle 5 on 07/16/2018, and with cycle 6 on 08/05/2018. Repeat bone marrow aspiration/biopsy on 08/29/2018 showed hypercellular marrow at 100% cellularity with an atypical lymphoid proliferation comprising 70-75% of the hematopoietic population. Flow cytometry showed a monotypic B-cell population comprising 10% of the total cellularity. The B cells were positive for CD45, CD19, CD20, CD23, and kappa light chain. They were negative for CD5, CD10, and FMC7. Nucleated RBCs were noted to be markedly decreased and relative number. There was limited dyserythropoiesis. Ring sideroblasts were noted to comprise 10% of the population. 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 The FISH panel was positive for IGH gain ( trisomy for chromosomes 14 q/14 or IGH rearrangement). Restaging PET/CT on 08/31/2018 showed unchanged subcarinal mediastinal lymph node and interval development of new prevascular lymph node. There was interval progression of existing and development of new abdominal malignant adenopathy. Also noted was a new 5 mm right apical pulmonary nodule with SUV 3.7, suspicious for malignancy. On 09/09/2018 he was hospitalized with pneumonia. He had very gradual recovery following that illness, and during subsequent follow-up he remained transfusion dependent. He also has continued to have severe neutropenia, and his further chemotherapy has remain on hold. During this time he was treated with Neupogen, and he did show response, but his neutrophil count had then gradually declined again. I had seen him for a follow-up visit on 11/19/2018. At that point I had recommended a trial of therapy with venetoclax together with Neupogen or Neulasta. We were able to get insurance approval for the venetoclax, but not the growth factor. He had opted, though, to delay starting treatment until after deer hunting season. During that time, he continued to require PRBC transfusion on a regular basis. Sometime near the end of November 2018 he had fallen at home and sustained an injury to his left rib cage. Due to persistent pain in that area and to the delay in starting his treatment, I had recommended that he have restaging CT scans. His CT scans of the chest, abdomen, and pelvis on 01/27/2019 showed long-term stability of an irregular 5 mm pulmonary nodule in the right middle lobe. A right apical lymph node was no longer present. Left upper pneumonia appeared to have resolved. There was persistent small left pleural effusion but resolution of right pleural effusion. There were numerous small axillary, mediastinal, and hilar lymph nodes, largest in the subcarinal area measuring 2.5 x 2.0 cm. There were numerous left-sided rib fractures. The spleen was noted to be enlarged measuring 17.3 cm. Low-attenuation throughout the liver felt to be compatible with cysts. There appeared to be increasing size and number of retrocrural, mesenteric, and retroperitoneal adenopathy, but the increase was in the range of 2 to 3 mm in diameter. On 01/29/2019 he started treatment with venetoclax at 20 mg daily. I also had him start prednisone 20 mg daily. He tolerated the low dosage with no adverse effects, and he then continued to escalate the dosage per the standard protocol. As of 02/17/2019 he had persistent but stable neutropenia. He had remained transfusion dependent. As of 02/19/2019 the venetoclax dosage was increased to 200 mg daily, and as of 02/26/2019 it was further escalated to 400 mg daily. As of 03/06/2019 the venetoclax was put on hold due to worsening neutropenia, with ANC 200. He then started growth factor support with Neupogen 300 mcg daily. Within 3 days the white count had come up to 6300 with absolute neutrophil count 5400, and the Neupogen was stopped. At that point the platelet count had also increased significantly, from 134,000 to 199,000. He was then able to restart venetoclax at 400 mg daily with no recurrence of the neutropenia. He began cycle 1 of rituximab on 03/13/2019. He tolerated it well, and he continued the venetoclax 400 mg daily. He received cycle 2 of rituximab on 04/10/2019 and cycle 3 on 05/08/2019. During that time his hemoglobin had fluctuated between 8 and 9 g, and he had remained transfusion independent since 02/11/2019. His repeat protein electrophoresis on 04/10/2019 showed decrease in the M protein to 1.2 g/dL. However, during subsequent follow-up, there was further decline in his hemoglobin/hematocrit levels, and he again required PRBC transfusions. His past medical history is unremarkable. He has had no prior medical illnesses. His only other surgery was a hernia repair. He is a nonsmoker. INTERIM HISTORY: A repeat brain MRI on 05/15/2019 showed innumerable new metastatic sites throughout the cerebrum, cerebellum, and brainstem. There was increasing edema surrounding several sites and there was evidence for associated hemorrhage. That disc was forwarded to the radiation oncology department at [facility]. It was reviewed by Dr. Samantha Parks and due to the brainstem involvement, it was recommended that he initially undergo palliative whole brain radiation. He completed the whole brain radiation on 06/27/2019, total dose 3000 cGy. He tolerated it well. During that time his steroid was changed from prednisone to dexamethasone, currently at 4 mg 3 times daily. Restaging PET/CT on 06/28/2019 showed new FDG avid supraclavicular lymph nodes bilaterally, more prominent on the left, with SUV up to 8.3. Also noted was progression of the subcarinal lymph node with SUV up to 11.6. A prevascular lymph node was noted to have resolved and a right apical pulmonary nodule had resolved. There was also improvement in upper abdominal adenopathy, but with residual FDG avid portal adenopathy with SUV 4.3. There was stable retroperitoneal adenopathy which included a left periodic lymph node with SUV 10.8. He is seen for a follow-up visit. He has not been feeling good generally. His energy level is down significantly. He is still doing light work. He has good appetite. He has not had fever or night sweats. He continues to complain that he has a lot of double vision. It does correct if he covers one eye. He also complains that he is dizzy/lightheaded all the time. He just does not feel good generally. He has a slight cough. He does not complain of shortness of breath. He occasionally has a little chest pain. He occasionally has nausea. He has a little bit of acid reflux. Bowel and bladder function remain adequate. He has no significant joint or bone pain. His headache has improved significantly. He does not have numbness/paresthesia or other focal neurologic symptoms. Medications: Acetaminophen 1 (325 mg) Tablet Oral q 4 hours PRN, Acyclovir 1 Tablet (of 400 mg) Oral daily, Aspirin 1 Tablet (of 81 mg) Oral daily, Cetirizine HCl 1 Tablet (of 10 mg) Oral b.i.d., Jadenu 1 Tablet (of 1620 mg) Oral daily, Levaquin 500 (500 mg) Tablet Oral PRN, Linezolid 1 Tablet (of 600 mg) Oral b.i.d. for 10 days, Lyrica 1 Capsule (of 100 mg) Oral b.i.d., Multivitamin 1 Tablet Liquid Oral daily PRN, Pantoprazole Sodium 1 Tablet (of 40 mg) Tablet, enteric coated Oral daily PRN, predniSONE 10 mg (of 10 mg) Tablet Oral daily, Prochlorperazine Maleate 1 Tablet (of 10 mg) Oral q 4 hours PRN, Tamsulosin HCl 2 (0.4 mg) Capsule Oral at bedtime, vendexta 400 mg Tablet daily, Voltaren Gel (jelly) Transdermal PRN Allergies: No Known Allergies. Review of Systems: Constitutional - His energy level is down. He has not been feeling well the last few days. He has been doing some light work in and around his home. His appetite is good and weight is up a few pounds from last visit. No fever, chills, hot flashes, or night sweats. ECOG score is 1, Eyes - He is having blurred vision and double vision, ENMT - He is having sinus drainage. No mouth sores. No sore throat or difficulty swallowing, Hematologic/Lymphatic - He bruises easily, Respiratory - No shortness of breath. He has a slight cough. No pleuritic pain or hemoptysis, Cardiovascular - No angina pain. No palpitations, Gastrointestinal - His nausea is improved with the Zofran. No vomiting. He is having some increased heartburn despite taking the Protonix. No diarrhea or constipation. No blood in the stool or black stools, Genitourinary (M) - No dysuria or hematuria. No urinary frequency. No urgency or incontinence, Musculoskeletal - No joint or bone pain, Integumentary - No skin complications, Neurologic - His headaches have significantly. He has been having lightheadedness and frequent dizziness. No numbness/paresthesias or other focal neurologic symptoms, Psychiatric - No anxiety or depression. No insomnia. Vital Signs: Performed on July 01, 2019 08:02 Height - 73.00 in Weight - 154 lbs (HIGH) BSA - 1.93 sq.m BMI - 20.32 Temperature - 98.2 F (LOW) Pulse - 63 /min Respiration - 17 /min BP - 122/70 mm(hg) O2 Sat - 63 % (LOW) Pain - 0 Physical Examination: Constitutional - He appears somewhat weak generally, Eyes - Sclerae nonicteric. Conjunctivae clear, ENMT - There are no lesions noted in the oral cavity, Hematologic/Lymphatic - There are small posterior cervical nodes palpable on the left side. There is no clavicular or axillary adenopathy noted, Respiratory - Lungs sound clear, Cardiovascular - Heart rhythm is regular. There is a III/ systolic murmur. There is no gallop or rub noted, Abdomen - Soft. Liver is not enlarged. Spleen is not palpable. There is no abdominal mass or ascites noted. There is no inguinal adenopathy noted, Extremities - No edema, Neurologic - No focal neurologic deficits noted. In particular, the EOMs appear in tact. Lab/Imaging: Test performed on June 26, 2019 10:23 WBC 4.9 10 3/uL RBC 3.16 10 6/uL HGB 9.2 g/dL HCT 28.0 % MCV 88.6 fL MCH 29.1 pg MCHC 32.9 g/dL RDW 13.7 % Platelet Count 296 10 3/cmm MPV 9.3 fL Neutrophils 3.7 10 3/uL Lymphocytes 0.3 10 3/uL Monocytes 0.3 10 3/uL Eosinophils 0.0 10 3/uL Basophils 0.0 10 3/uL Neutrophil % 77.0 % Lymphocyte % 5.4 % Monocyte % 5.4 % Eosinophil % 0.0 % Basophils % 0.0 % CBC Slide Review Slide Review Perform SLIDE REVIEW AGREES WITH AUTOMATED RESULTS Impression: 1. Patient with multiple malignancies including marginal zone lymphoma, stage IV renal cell carcinoma, and suspected myeloma. 2. He had initially presented in October 2015 with anemia and IgG kappa monoclonal gammopathy. 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 He also was found to have a large right renal mass. He underwent treatment with 6 weekly infusions of rituximab, completed on 01/20/2016. 3. Repeat bone marrow aspiration/biopsy on 02/23/2016 again showed 100% cellularity with complete effacement by a lymphoid proliferation. 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 4. He then had a second opinion evaluation with Dr. Mamadou Alvarado at [facility]. His evaluation there had included biopsy the right renal mass, with pathology reporting involvement with lymphoma. He was advised to continue treatment with a course of bendamustine/Rituxan chemotherapy, which began on 04/21/2016. He completed 3 cycles of treatment. He had prolonged but not severe neutropenia after the second cycle, and he did receive Neulasta prophylaxis with cycle 3. He tolerated the treatment well otherwise. However, he remained moderately anemic. His restaging CT abdomen/pelvis on 07/19/2016 showed resolution of the small mesenteric and retroperitoneal lymph nodes, but no significant change in the right renal mass. 5. His repeat bone marrow aspiration/biopsy on 08/02/2016 showed only a small amount of residual monoclonal B cells, estimated at 1-2% of the marrow cellularity. Clarinda restricted plasma cells were estimated at 20-25% of the cellularity, suspicious for plasma cell dyscrasia. His repeat protein electrophoresis showed an increase in his M protein to 1.57 g/dL. Skeletal survey showed no evidence of lytic bone involvement. Overall, the findings were felt to be consistent with myeloma. 6. He underwent left frontal craniotomy with excision of brain metastasis on 03/14/2017, pathology consistent with metastatic renal cell carcinoma. He underwent gamma knife radiosurgery to 4 additional brain lesions. 7. He underwent cytoreductive right laparoscopic radical nephrectomy on 05/03/2017. Pathology showed grade 2 renal cell carcinoma measuring 9.5 cm, clear cell type, pathologic stage T3a, NX. 8. In August 2017 he began treatment with Jadenu 14 mg/kg daily for transfusion associated iron overload. 9. Restaging PET/CT in January 2018 showed mild progression of lymphadenopathy, mainly in the carleen hepatis and retroperitoneal area. His repeat bone marrow aspiration/biopsy on 03/08/2018 showed extensive involvement with B-cell lymphoma, estimated at greater than 70% involvement. 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 10. On 04/08/2018 he began a course of treatment with cyclophosphamide, Velcade, and dexamethasone. He had significant treatment delays due to cytopenias. He ultimately completed his 6 cycle of treatment In July 2018. 11. His restaging bone marrow aspiration/biopsy 08/29/2018 showed 100% cellularity with 70-75% atypical lymphocytes, consistent with residual lymphoma. 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 There also was evidence of disease progression on his restaging PET/CT. 12. On 09/09/2018 he was admitted to the hospital with pneumonia. He has been showing gradual recovery, but during this time he had a significant decline in his performance status. He remained transfusion dependent anemia, and he had moderately severe neutropenia and thrombocytopenia. 13. In September 2018 he began trial of therapy with ibrutinib 420 mg daily. Within a short time he had become severely neutropenic, and the ibrutinib was put on hold. 14. His restaging CT scans on 01/27/2019 showed some progression of lymphadenopathy, though still not bulky. With evidence of disease progression and with declining performance status, I opted to have him begin treatment with venetoclax/rituximab. He began the venetoclax on 01/29/2019 at a dose of 20 mg daily. At that time I also had him start prednisone 20 mg daily. He was able to tolerate the low dosage of venetoclax with no adverse effects, and he then continued escalating the dosage per the standard protocol. As of 02/17/2019 he had continued to have moderately severe but stable neutropenia. He had also remained transfusion dependent. As of 02/19/2019 the venetoclax dosage was increased to 200 mg daily, and as of 02/26/2019 it was further escalated to 400 mg daily. As of 03/06/2019 his treatment was put on hold due to worsening neutropenia, ANC 200. He then started growth factor support with Neupogen. He had a very good response. Within 3 days his absolute neutrophil count had increased to 5400. He was able to restart venetoclax with no recurrence of the neutropenia. He then began cycle 1 of rituximab on 03/13/2019. He tolerated it with no adverse effects. He then continued the venetoclax at 400 mg daily and he continue with cycle 2 of rituximab on 04/10/2019 and with cycle 3 on 05/08/2019. During treatment with venetoclax/rituximab there was evidence of response with increase in the white blood cell count and platelet count and with a significant decrease in the M protein, down to 0.6 g/dL compared to a maximum of 3.0 g/dL. His hemoglobin initially appeared to be showing some improvement, but he subsequently became transfusion dependent again. His repeat brain MRI on 05/15/2019 showed multiple new small metastases involving the cerebrum, cerebellum, and brainstem. He was recommended to undergo palliative whole brain radiation. He completed treatment on 06/27/2019 to a total dose of 3000 cGy. He tolerated it well. His restaging PET/CT on 06/28/2019 showed evidence of some progression of lymph node involvement, mainly in the neck area. He has not been feeling good generally, and he continues to have double vision. At this point I am not certain whether the latter is due to cranial nerve/meningeal involvement or to the brainstem involvement. Plan: With evidence of progression of the lymphadenopathy, his venetoclax will be put on hold. We will have him decrease dexamethasone to 4 mg twice daily. He will be scheduled for a follow-up visit with repeat brain MRI in 1 month. In the meantime, I will be reviewing his previous MRI I will confer with and with Dr. Alvarado regarding his further management. His blood counts during this time will be monitored weekly and he will be transfused as needed. Signed By: Ulysses Lazo M.D. <<Signature on File>>
[2019-07-07 10:09] LABS: Hematocrit 21.8 % (42.0-52.0); Hemoglobin 7.1 g/dL (11.7-16.6); Lymphocytes # 0.5 10^3/uL (0.8-4.8); Lymphocytes % 6.7 %; Mean Corpuscular HGB Conc 32.6 g/dL (30.0-36.0); Mean Corpuscular Hemoglobin 29.1 pg (28.0-34.0); Mean Corpuscular Volume 89.3 fL (80-94); Monocytes # 0.7 10^3/uL (0.2-0.9); Monocytes % 9.6 %; Neutrophils # 5.8 10^3/uL (1.8-7.7); Neutrophils % 74.4 %; Nucleated Red Blood Cells % 0 %; Platelet Count 319 10^3/cmm (130-400); Red Blood Count 2.44 10^6/uL (4.1-5.3); Red Cell Distribution Width 13.5 % (12.1-15.1); White Blood Count 7.7 10^3/uL (4.0-10.0)
[2019-07-07 10:39] LABS: Slide Review Slide Review Perform
[2019-07-08] VITALS (10 sets, daily range): BP systolic 95–113; BP diastolic 58–66; PULSE 53–63; RESP 18; TEMP 36.6–36.9; O2SAT 94–98
[2019-07-08] MEDS: sodium chloride 0.9% 250 ML 999 ML IV (08:28)
[2019-07-15 10:29] LABS: Eosinophils % 0.4 %; Hematocrit 24.8 % (42.0-52.0); Hemoglobin 7.9 g/dL (11.7-16.6); Lymphocytes # 0.6 10^3/uL (0.8-4.8); Lymphocytes % 9.7 %; Mean Corpuscular HGB Conc 31.9 g/dL (30.0-36.0); Mean Corpuscular Hemoglobin 27.7 pg (28.0-34.0); Mean Platelet Volume 10.1 fL (7.4-10.4); Monocytes # 0.3 10^3/uL (0.2-0.9); Monocytes % 4.6 %; Neutrophils # 4.6 10^3/uL (1.8-7.7); Neutrophils % 80.7 %; Nucleated Red Blood Cells % 0 %; Platelet Count 227 10^3/cmm (130-400); Red Blood Count 2.85 10^6/uL (4.1-5.3); Red Cell Distribution Width 13.9 % (12.1-15.1); White Blood Count 5.7 10^3/uL (4.0-10.0)
[2019-07-16] MEDS: sodium chloride 0.9% 250 ML 999 ML IV (08:00)
== END 2019-07-20 23:59 | disposition home or self-care (01) ==
LOC: ONCMED 07:06
PROVIDERS: Nurse Practitioner; Radiology Radiation Oncology; Visit Provider Internal Medicine Medical Oncology
DX: Z51.0 Encounter for antineoplastic radiation therapy (principal); C90.00 Multiple myeloma not having achieved remission; C64.1 Malignant neoplasm of right kidney, except renal pelvis; C79.52 Secondary malignant neoplasm of bone marrow; C79.31 Secondary malignant neoplasm of brain; D70.1 Agranulocytosis secondary to cancer chemotherapy; E83.111 Hemochromatosis due to repeated red blood cell transfusions; Z92.21 Personal history of antineoplastic chemotherapy; Z79.899 Other long term (current) drug therapy
CPT/HCPCS: 36415; 36430; 77336; 77387; 77412; 80053; 83540; 83550; 83615; 83883; 84155; 84165; 85025; 85651; 86850; 86900; 86920; 99211; 99214; J7050; P9040

== ENCOUNTER 2019-07-28 03:59 | Emergency (ER) | payer OTHER, MEDICARE, SELFPAY ==
[2019-07-28] VITALS (8 sets, daily range): BP systolic 91–115; BP diastolic 56–80; PULSE 71–86; RESP 14–20; TEMP 36.7; O2SAT 93–98; BMI 20.9
--- NOTE | 2019-07-28 04:11 | PC.NURSE ---
Patient states that he has been unable to pee, his legs are swelling, and has been having weakness in his right leg. Patient states he has been feeling weak and having trouble walking. Patient states he has cancer and only one kidney.
--- NOTE | 2019-07-28 04:14 | CTR_ITS ---
PROCEDURE INFORMATION: Exam: CT Head Without Contrast Exam date and time: 07/28/2019 4:22 AM Age: 69 years old Clinical indication: Weakness, extremity; Right; Prior surgery; Surgery date: 6+ months; Surgery type: Brain TECHNIQUE: Imaging protocol: Computed tomography of the head without contrast. Radiation optimization: All CT scans at this facility use at least one of these dose optimization techniques: automated exposure control; mA and/or kV adjustment per patient size (includes targeted exams where dose is matched to clinical indication); or iterative reconstruction. COMPARISON: CT head wo con* [id number] 06/07/2017 10:10 AM RADIATION DOSE METRICS: Total DLP: 770.03 mGy-cm FINDINGS: Brain: There is mild hypodensity of the periventricular white matter. This is nonspecific, but a likely cause is small vessel ischemic disease. Moderate area of encephalomalacia in the left frontal lobe, consistent with remote insult (such as infarct). This is larger than prior study. Small calcifications in the left frontal cortex associated with encephalomalacia, likely dystrophic in nature, similar to prior study. Ill-defined hypodense area in the right cerebellar hemisphere measuring 2.6 cm x 1.8 cm on series 2, image 9. This is new since the prior study. Appearance is concerning for ischemia of unclear age. Consider MRI for further evaluation. Small calcification in the right occipital lobe (series 2, image 23), nonspecific and unlikely to be clinically significant. No abnormal intra-axial or extra-axial fluid collections are identified. There is no midline shift. No intracranial hemorrhage identified. Ventricles: The ventricles and sulci are moderately and diffusely prominent, compatible with global brain volume loss. Bones/joints: Status post left frontal craniotomy. Sinuses: Visualized sinuses are unremarkable. No fluid levels. Mastoid air cells: Visualized mastoid air cells are well aerated. Soft tissues: Unremarkable. CT/CT head wo con* [id number] IMPRESSION: 1. Ill-defined hypodense area in the right cerebellar hemisphere. This is new since the prior study. Appearance is concerning for ischemia of unclear age. Consider MRI for further evaluation. 2. Additional, nonemergent findings as above. Radiation Dose CTDIVOL = (mGy): DLP = 770.03 (mGy-cm)
--- NOTE | 2019-07-28 04:17 | ED_ITS ---
Documented by User: Jacob Marquez MD 07/28/19 05:53 HPI - Weakness General: Chief complaint: Neuro Symptoms/Deficit Stated complaint: nuerological unable to urinate Time Seen by Provider: 07/28/19 04:10 Source: patient Mode of arrival: ambulatory Limitations: no limitations History of Present Illness: HPI Narrative: 69-year-old male with a history of non-Hodgkin's lymphoma. He states he had increasing weakness over the last 3 to 4 days. He states he has had weakness in the right leg and difficulty walking. He states he is also had difficulty urinating as well. Pain. He states had MRI of his brain last week. He denies any fevers. Complaint: focal weakness Associated symptoms: Denies chest pain, chills, dysuria, easy bruising, fever(s), headache(s), nausea or vomiting Review of Systems Const: Denies: fever(s), chills, body aches or change in appetite Eyes: Denies: blurry vision or eye discomfort ENMT: Denies: throat pain or dental pain Card: Denies: chest pain Resp: Denies: dyspnea GI: Denies: abdominal pain, nausea, vomiting or diarrhea : Reports: difficulty urinating; Denies: dysuria Musc: Denies: neck pain or back pain Skin/Breast: Denies: rash Neuro: Reports: weakness in extremities; Denies: headache(s) Psych: Denies: depression Francois/Lymph: Denies: easy bruising All/Imm: Denies: urticaria PFSH ED PFSH: Medical History (Updated 07/28/19 @ 07:11 by Tolu Felder DO) Monoclonal gammopathies Social History Smoking and tobacco status: never smoked Physical Exam Const: COMMON NORMALS: no acute distress, patient oriented x3 and healthy appearing HENMT: COMMON NORMALS: normocephalic and atraumatic HEAD & SCALP: normocephalic and atraumatic Eye: COMMON NORMALS: Equal, round and reactive pupils present and EOMs intact bilaterally PUPIL: Yes Equal, round and reactive pupils present Neck/C-Spine: COMMON NORMALS: full ROM and supple Chest: COMMONS NORMALS: normal inspection of the chest and normal palpation of entire chest wall Resp: COMMON NORMALS: normal respiratory effort, No retractions, No use of accessory muscles and clear to auscultation bilaterally AUSCULTATION: clear to auscultation bilaterally Cardio: COMMON NORMALS: regular rate, regular rhythm and No murmurs present (Cardio) RATE: regular rate RHYTHM: regular rhythm GI: COMMON NORMALS: Normal to inspection, nondistended, normoactive bowel sounds present, Soft to palpation, non-tender and no masses PALPATION: Yes Soft to palpation Extremity: COMMON NORMALS: normal to inspection and full ROM Neuro: COMMON NORMALS: patient oriented x3 and no focal motor deficits OTHER: weakness in right lower leg Psych: COMMON NORMALS: mental status grossly normal, Normal thought process present and cooperative THOUGHT PROCESS: Normal thought process present Skin: COMMON NORMALS: no rashes or lesions noted and no wounds GENERAL SKIN EXAM: no rashes or lesions noted Course Vital Signs: Vital signs: Vital Signs Temperature 98.1 F 07/28/19 04:09 Pulse Rate 75 07/28/19 08:49 Respiratory Rate 15 07/28/19 08:49 Blood Pressure 115/80 07/28/19 08:49 Pulse Oximetry 97 07/28/19 08:49 MDM - Weakness MDM Narrative: Medical decision making narrative: Patient presents here with right leg weakness along with urinary retention. Patient does have an extensive history of cancer. He had an MRI brain on Sunday that showed progression of hemorrhagic metastatic sites throughout the brain and significant increase in vasogenic edema involving the susan and left cerebellar peduncle patient is awaiting CT of his head here. Also doing CT of lumbar spine as he has urinary retention but he does not have any back pain here. Patient's care turned over to Dr. Briggs at this time. I have attempted to call patient's oncologist Dr. Lazo as well. Lab Data: Labs: Lab Results 07/28/19 07/28/19 07/28/19 Range/Units 04:31 04:31 04:31 WBC 5.7 (4.0-10.0) 10^3/ uL RBC 3.31 L (4.1-5.3) 10^6/u L Hgb 9.5 L (11.7-16.6) g/dL Hct 29.1 L (42.0-52.0) % MCV 87.9 (80-94) fL MCH 28.7 (28.0-34.0) pg MCHC 32.6 (30.0-36.0) g/dL RDW 14.5 (12.1-15.1) % Plt Count 249 (130-400) 10^3/c mm MPV 9.7 (7.4-10.4) fL Nucleated RBC % (a uto) 0 % Total Counted 100 (0-100) Absolute Neutrophi ls 5.0 (1.4-6.5) 10^3/c mm Segmented Neutroph ils 64 % Abs Segm Neuts (Ma n) 3.6 (1.6-7.1) 10/cmm Band Neutrophils 23.0 % Abs Band Neuts (Ma n) 1.3 H (0.0-1.2) 10^3/c mm Lymphocytes (Manua l) 4 % Monocytes (Manual) 7.0 % Absolute Monocytes 0.4 (0.1-0.6) 10^3/c mm Metamyelocytes 2.0 % Nucleated RBCs # 0.0 /100WBC Platelet Estimate Normal (Normal) Anisocytosis Trace Sodium 134 L (136-145) mmol/L Potassium 3.8 (3.5-5.1) mmol/L Chloride 99 (98-107) mmol/L Carbon Dioxide 24 (22-29) mmol/L Anion Gap 14.8 (5-19) BUN 32 H (8-23) mg/dL Creatinine 1.2 (0.7-1.2) mg/dL Glucose 102 (65-115) mg/dL Calculated Osmolal ity 275 L (285-295) mOsm/k g Calcium 8.9 (8.5-10.5) mg/dL Total Bilirubin 0.5 (0.15-1.2) mg/dL AST 19 (0-40) U/L ALT 6 (0-41) U/L Alkaline Phosphata se 78 (40-130) IU/L Total Protein 6.4 L (6.6-8.7) g/dL Albumin 3.4 L (3.5-5.2) g/dL Globulin 3.0 (1.3-4.6) g/dL Urine Color Yellow (Yellow) Urine Appearance Clear (CLEAR) Urine pH 7 (5-7) Ur Specific Gravit y 1.005 (1.005-1.030) Urine Protein Neg (Negative) Urine Glucose (UA) Norm (Normal) Urine Ketones Negative (Negative) Urine Blood Neg (Negative) Urine Nitrate Positive H (Negative) Urine Bilirubin Neg (NEGATIVE) Urine Urobilinogen Norm (Negative) mg/dL Ur Leukocyte Yolanda ase Negative (Negative) Urine RBC None (0-2) /hpf Urine WBC 0-4 H (0-5) /hpf Ur Squamous Epith Cells 5-10 H (0-5) Urine Bacteria 3+ H (NONE) Discharge Plan Discharge Patient Disposition: Hospice - Home Clinical Impression: Cerebrovascular accident, Monoclonal gammopathy Condition: Stable Prescriptions: New dexamethasone 6 mg tablet 6 mg PO Q6H Qty: 90 RF: 0 No Action dronabinol 5 mg capsule 5 mg PO BID RF: 0 prochlorperazine maleate 10 mg tablet 10 mg PO Q6H PRN (Reason: Nausea) RF: 0 acyclovir 400 mg tablet 400 mg PO DAILY RF: 0 pantoprazole 40 mg tablet,delayed release (DR/EC) 40 mg PO DAILY RF: 0 levofloxacin 750 mg tablet 750 mg PO DAILY PRN (Reason: Fever) RF: 0 ondansetron 4 mg tablet,disintegrating 4 mg PO Q6H PRN (Reason: Nausea) RF: 0 pregabalin 100 mg capsule 100 mg PO BID RF: 0 Jadenu 360 mg tablet 1,620 mg PO DAILY RF: 0 multivitamin Tablet 1 tab PO DAILY RF: 0 Tylenol 325 mg Capsule 325 mg PO QID PRN (Reason: Pain) RF: 0 Discharge Orders: Discharge Order (Routine); Ordered 07/28/19 Ordered By: Tolu Felder Discharge Diet: Usual diet Discharge Activity: Limit activity as instructed Activity Restrictions/Additional Instructions: Hospice will contact you at home for referral and evaluation to participate in their program. Dr. Lazo has been contacted and made aware of your disposition from the emergency room today as well as the findings on the imaging studies. Discharge Date/Time: 07/28/19 08:49 Coding Level of Care Code ED Finish Rolls Operator for Chg Fwd Exam Comprehensive Documented by User: Tolu Felder DO 07/28/19 14:24 HPI - Weakness General: Chief complaint: Neuro Symptoms/Deficit Stated complaint: nuerological unable to urinate Time Seen by Provider: 07/28/19 04:10 PFS ED PFSH: Medical History (Updated 07/28/19 @ 07:11 by Tolu Felder DO) Monoclonal gammopathies Social History Smoking and tobacco status: never smoked Course Vital Signs: Vital signs: Vital Signs Temperature 98.1 F 07/28/19 04:09 Pulse Rate 75 07/28/19 08:49 Respiratory Rate 15 07/28/19 08:49 Blood Pressure 115/80 07/28/19 08:49 Pulse Oximetry 97 07/28/19 08:49 MDM - Weakness MDM Narrative: Medical decision making narrative: CT findings reviewed with the read radiologist also discussed with Dr. Lazo. MRI done on July 24 shows hemorrhagic metastatic sites at this point there really is little to offer this patient has had whole brain gamma gamma radiation with no significant improvement he is awake and alert discussed with him and the family ultimately opted for hospice at home we will go ahead and discharge him home discharge home with dexamethasone 4 mg 3 times daily. Further management of the patient through hospice Dr. Lazo is been made aware he will be transferred to hospice. Lab Data: Labs: Lab Results 07/28/19 07/28/19 07/28/19 Range/Units 04:31 04:31 04:31 WBC 5.7 (4.0-10.0) 10^3/ uL RBC 3.31 L (4.1-5.3) 10^6/u L Hgb 9.5 L (11.7-16.6) g/dL Hct 29.1 L (42.0-52.0) % MCV 87.9 (80-94) fL MCH 28.7 (28.0-34.0) pg MCHC 32.6 (30.0-36.0) g/dL RDW 14.5 (12.1-15.1) % Plt Count 249 (130-400) 10^3/c mm MPV 9.7 (7.4-10.4) fL Nucleated RBC % (a uto) 0 % Total Counted 100 (0-100) Absolute Neutrophi ls 5.0 (1.4-6.5) 10^3/c mm Segmented Neutroph ils 64 % Abs Segm Neuts (Ma n) 3.6 (1.6-7.1) 10/cmm Band Neutrophils 23.0 % Abs Band Neuts (Ma n) 1.3 H (0.0-1.2) 10^3/c mm Lymphocytes (Manua l) 4 % Monocytes (Manual) 7.0 % Absolute Monocytes 0.4 (0.1-0.6) 10^3/c mm Metamyelocytes 2.0 % Nucleated RBCs # 0.0 /100WBC Platelet Estimate Normal (Normal) Anisocytosis Trace Sodium 134 L (136-145) mmol/L Potassium 3.8 (3.5-5.1) mmol/L Chloride 99 (98-107) mmol/L Carbon Dioxide 24 (22-29) mmol/L Anion Gap 14.8 (5-19) BUN 32 H (8-23) mg/dL Creatinine 1.2 (0.7-1.2) mg/dL Glucose 102 (65-115) mg/dL Calculated Osmolal ity 275 L (285-295) mOsm/k g Calcium 8.9 (8.5-10.5) mg/dL Total Bilirubin 0.5 (0.15-1.2) mg/dL AST 19 (0-40) U/L ALT 6 (0-41) U/L Alkaline Phosphata se 78 (40-130) IU/L Total Protein 6.4 L (6.6-8.7) g/dL Albumin 3.4 L (3.5-5.2) g/dL Globulin 3.0 (1.3-4.6) g/dL Urine Color Yellow (Yellow) Urine Appearance Clear (CLEAR) Urine pH 7 (5-7) Ur Specific Gravit y 1.005 (1.005-1.030) Urine Protein Neg (Negative) Urine Glucose (UA) Norm (Normal) Urine Ketones Negative (Negative) Urine Blood Neg (Negative) Urine Nitrate Positive H (Negative) Urine Bilirubin Neg (NEGATIVE) Urine Urobilinogen Norm (Negative) mg/dL Ur Leukocyte Yolanda ase Negative (Negative) Urine RBC None (0-2) /hpf Urine WBC 0-4 H (0-5) /hpf Ur Squamous Epith Cells 5-10 H (0-5) Urine Bacteria 3+ H (NONE) Discharge Plan Discharge Patient Disposition: Hospice - Home Clinical Impression: Cerebrovascular accident, Monoclonal gammopathy Condition: Stable Prescriptions: New dexamethasone 6 mg tablet 6 mg PO Q6H Qty: 90 RF: 0 No Action dronabinol 5 mg capsule 5 mg PO BID RF: 0 prochlorperazine maleate 10 mg tablet 10 mg PO Q6H PRN (Reason: Nausea) RF: 0 acyclovir 400 mg tablet 400 mg PO DAILY RF: 0 pantoprazole 40 mg tablet,delayed release (DR/EC) 40 mg PO DAILY RF: 0 levofloxacin 750 mg tablet 750 mg PO DAILY PRN (Reason: Fever) RF: 0 ondansetron 4 mg tablet,disintegrating 4 mg PO Q6H PRN (Reason: Nausea) RF: 0 pregabalin 100 mg capsule 100 mg PO BID RF: 0 Jadenu 360 mg tablet 1,620 mg PO DAILY RF: 0 multivitamin Tablet 1 tab PO DAILY RF: 0 Tylenol 325 mg Capsule 325 mg PO QID PRN (Reason: Pain) RF: 0 Discharge Orders: Discharge Order (Routine); Ordered 07/28/19 Ordered By: Tolu Felder Discharge Diet: Usual diet Discharge Activity: Limit activity as instructed Activity Restrictions/Additional Instructions: Hospice will contact you at home for referral and evaluation to participate in their program. Dr. Lazo has been contacted and made aware of your disposition from the emergency room today as well as the findings on the imaging studies. Discharge Date/Time: 07/28/19 08:49 Coding Level of Care Code ED Finish Rolls Operator for Chg Fwd Exam Comprehensive
--- NOTE | 2019-07-28 04:18 | CTR_ITS ---
PROCEDURE INFORMATION: Exam: CT Lumbar Spine Without and With Contrast Exam date and time: 07/28/2019 4:22 AM Age: 69 years old Clinical indication: Weakness; Prior surgery; Surgery date: 6+ months; Surgery type: Right nephrectomy. Report of the 07/25/2019 head MRI noted to indicate progression in the size and number of the hemorrhagic metastatic lesions throughout the brain since 05/15/2019. TECHNIQUE: Imaging protocol: Computed tomography images of the lumbar spine without and with intravenous contrast. Radiation optimization: All CT scans at this facility use at least one of these dose optimization techniques: automated exposure control; mA and/or kV adjustment per patient size (includes targeted exams where dose is matched to clinical indication); or iterative reconstruction. Contrast material: VISI; Contrast volume: 75 ml; Contrast route: IV; COMPARISON: No relevant prior studies available. RADIATION DOSE METRICS: Total DLP: 6714.42 mGy-cm FINDINGS: Vertebrae: No pars defect or acute fracture. Old mild L1 compression fracture. Minimal retrolisthesis at L1-L2 and spondylolisthesis at T12-L1. Minimal left convex scoliosis. T12-L1: T12-L1 disc within normal limits. L1-L2: Foraminal annular bulging at L1-L2 without canal stenosis but with mild right and moderate left foraminal stenoses. L2-L3: Minimal gas in the L2-L3 disc and foraminal annular bulging at this level. No canal stenosis, but mild bilateral foraminal stenoses at this level. L3-L4: Moderate disc narrowing with vacuum phenomenon, diffuse annular bulging, , gas bubbles in the right paracentral annulus, no significant canal stenosis and mild bilateral foraminal stenoses at L3-L4. L4-L5: Moderate to marked disc narrowing with vacuum phenomenon, diffuse annular bulging, minimal to mild canal stenosis and [id number] foraminal stenoses at L4-L5. L5-S1: Moderate to marked disc narrowing with vacuum phenomenon, diffuse annular bulging, a gas bubble in the small central focal disc protrusion, minimal canal stenosis and oloc-ya-rtxheqak right and moderate left foraminal stenoses at L5-S1. Kidneys and ureters: Evidence of the right nephrectomy. Spinal canal: Approximately 10 mm ovoid focus of increased density in the left side of the thecal sac at the upper L1 level on images 14 through 16 of series 9 and images 31 through 34 of series 607; [id number] enhancement in the aorta and this mass on the postcontrast images. No enhancing mass elsewhere in the thecal sac. Soft tissues: No right adrenal mass. CT/CT lumbar spine wo/w con [id number] IMPRESSION: 1. No acute fracture. Old mild L1 compression fracture. Minimal retrolisthesis at L1-L2 and spondylolisthesis at T12-L1. 2. Multilevel degenerative disease detailed above. Small central focal disc protrusion at L5-S1. 3. Evidence of the right nephrectomy. 4. 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 Radiation Dose CTDIVOL = (mGy): DLP = 6714.42 (mGy-cm)
[2019-07-28 04:56] LABS: Hematocrit 29.1 % (42.0-52.0); Hemoglobin 9.5 g/dL (11.7-16.6); Mean Corpuscular HGB Conc 32.6 g/dL (30.0-36.0); Mean Corpuscular Hemoglobin 28.7 pg (28.0-34.0); Mean Corpuscular Volume 87.9 fL (80-94); Mean Platelet Volume 9.7 fL (7.4-10.4); Nucleated Red Blood Cells % 0 %; Platelet Count 249 10^3/cmm (130-400); Positive C 1; Positive M 1; Red Blood Count 3.31 10^6/uL (4.1-5.3); Red Cell Distribution Width 14.5 % (12.1-15.1); White Blood Count 5.7 10^3/uL (4.0-10.0)
[2019-07-28 05:10] LABS: Alanine Aminotransferase 6 U/L (0-41); Albumin Level 3.4 g/dL (3.5-5.2); Alkaline Phosphatase 78 IU/L (40-130); Anion Gap 14.8 (5-19); Aspartate Amino Transferase 19 U/L (0-40); Blood Urea Nitrogen 32 mg/dL (8-23); Calcium 8.9 mg/dL (8.5-10.5); Carbon Dioxide 24 mmol/L (22-29); Chloride 99 mmol/L (98-107); Glucose 102 mg/dL (65-115); Osmolality Calculated 275 mOsm/kg (285-295); Potassium 3.8 mmol/L (3.5-5.1); Sodium 134 mmol/L (136-145); Total Bilirubin 0.5 mg/dL (0.15-1.2); Total Protein 6.4 g/dL (6.6-8.7)
--- NOTE | 2019-07-28 05:44 | PC.NURSE ---
patient in ct
[2019-07-28 05:45] LABS: Slide Review Slide Review Perform
[2019-07-28 05:47] LABS: Absolute Segmented Neutrophil 3.6 10/cmm (1.6-7.1); Band Neutrophils Absolute 1.3 10^3/cmm (0.0-1.2); Lymphocytes 4 %; Monocytes Absolute 0.4 10^3/cmm (0.1-0.6); Segmented Neutrophils 64 %; Total Cells Counted 100 (0-100)
[2019-07-28 05:48] LABS: Anisocytosis Trace; Platelet Estimate Normal (Normal)
[2019-07-28] MEDS: iodixanol 320 mg/mL 100mL Btl IV (05:49)
[2019-07-28] MEDS: dexamethasone 10 mg/mL INJ IVP ×2 (05:51→06:17)
[2019-07-28 06:41] LABS: Add Urine Culture? Yes; Bacteria Urine 3+; Bilirubin Urine Neg (NEGATIVE); Blood Urine Neg (Negative); Glucose Urine UA Norm (Normal); Ketones Urine Negative (Negative); Leukocyte Esterase Urine Negative (Negative); Nitrate Urine Positive (Negative); Protein Urine Neg (Negative); Specific Gravity, Urine 1.005 (1.005-1.030); Urine Appearance Clear (CLEAR); Urine Color Yellow (Yellow); Urobilinogen Urine Norm (Negative); WBC Urine 0-4 /hpf (0-5); pH Urine 7 (5-7)
--- NOTE | 2019-07-28 08:45 | DCPLANNER ---
intervention manager was asked to speak with patient about hospice. intervention manager spoke with patient and his about hospice and what company the patient would like to use. intervention manager gave patient the data performance information for review. intervention manager gave patient the Patient Choice letter to sign, patients signed the patient choice letter. Patient chose [facility] for hospice services. intervention manager called [facility], spoke with Ancelmo, gave her patients information. intervention manager was told that she would take the referral and contact patient about services.
== END 2019-07-28 08:49 | disposition hospice, home (50) ==
PROVIDERS: Emergency Medicine; Emergency Provider Family Medicine
DX: I63.9 Cerebral infarction, unspecified (principal); D47.2 Monoclonal gammopathy
CPT/HCPCS: 12345; 51702; 70450; 72133; 80053; 81001; 85007; 85025; 87086; 96374; 96375; 99283; 99284; J1100; Q9967

== ENCOUNTER 2019-07-28 05:43 | Outpatient (RCR) | payer OTHER, MEDICARE, SELFPAY ==
[2019-07-21 12:35] LABS: Basophils % 0.2 %; Eosinophils # 0.1 10^3/uL (0.0-0.8); Eosinophils % 0.9 %; Hematocrit 26.7 % (42.0-52.0); Hemoglobin 8.6 g/dL (11.7-16.6); Lymphocytes # 0.6 10^3/uL (0.8-4.8); Mean Corpuscular HGB Conc 32.2 g/dL (30.0-36.0); Mean Corpuscular Hemoglobin 28.9 pg (28.0-34.0); Mean Corpuscular Volume 89.6 fL (80-94); Monocytes # 0.2 10^3/uL (0.2-0.9); Monocytes % 4.6 %; Neutrophils % 76.4 %; Nucleated Red Blood Cells % 0 %; Platelet Count 200 10^3/cmm (130-400); Red Blood Count 2.98 10^6/uL (4.1-5.3); Red Cell Distribution Width 14.2 % (12.1-15.1); White Blood Count 5.3 10^3/uL (4.0-10.0)
[2019-07-21 13:31] LABS: Slide Review Slide Review Perform
[2019-07-24 09:58] LABS: Basophils % 0.2 %; Eosinophils % 0.2 %; Hematocrit 25.4 % (42.0-52.0); Hemoglobin 8.3 g/dL (11.7-16.6); Lymphocytes # 0.3 10^3/uL (0.8-4.8); Lymphocytes % 5.3 %; Mean Corpuscular HGB Conc 32.7 g/dL (30.0-36.0); Mean Corpuscular Hemoglobin 28.3 pg (28.0-34.0); Mean Corpuscular Volume 86.7 fL (80-94); Monocytes # 0.3 10^3/uL (0.2-0.9); Monocytes % 4.4 %; Neutrophils # 4.7 10^3/uL (1.8-7.7); Neutrophils % 83.5 %; Nucleated Red Blood Cells % 0 %; Platelet Count 244 10^3/cmm (130-400); Red Blood Count 2.93 10^6/uL (4.1-5.3); Red Cell Distribution Width 14.1 % (12.1-15.1); White Blood Count 5.6 10^3/uL (4.0-10.0)
[2019-07-24 10:27] LABS: Slide Review Slide Review Perform
[2019-07-25] VITALS (10 sets, daily range): BP systolic 87–105; BP diastolic 52–64; PULSE 57–76; RESP 18; TEMP 36.4–36.7; O2SAT 95–97
[2019-07-25] MEDS: sodium chloride 0.9% 250 ML 999 ML IV (08:20)
--- NOTE | 2019-07-25 12:06 | MR_ITS ---
WS: [id number] MRI BRAIN WITH AND WITHOUT CONTRAST HISTORY: BRAIN METS COMPARISON: 05/15/2019 and 05/30/2018 TECHNIQUE: Multiplanar imaging performed through the brain with Prohance 15 ml's IV. No evidence for an acute infarct. There has been a progression in the size and number of the metastatic lesions throughout the brain si nce 05/15/2019. Several of the cerebral metastases have increased slightly in size by only 2 to 3 mm. There has also been an increase in the number of lesions. There is a significant amount of vasogenic edema surrounding the metastasis with new lesions identified in the LEFT susan. There is a large amoun t of edema throughout the susan and the LEFT cerebellar peduncle. Edema extends through a large portio n of the susan and crosses the midline to the RIGHT. Edema extends into the midbrain. The largest lesi ons measure about 8 mm. Several of the lesions contain hemosiderin are positive on the susceptibility imaging. No hydrocephalus. There is mild cerebral atrophy. Paranasal sinuses: Small mucous retention cyst in the LEFT maxillary sinus. Mastoid air cells: Normal. Calvarium and scalp: Normal. MR/MR head wo/w con [id number] IMPRESSION: 1. Progression in the size and number of the hemorrhagic metastatic sites thro ughout the brain. Metastatic lesions measure less than a centimeter with signif icant amount of vasogenic edema. 2. Significant increase in the vasogenic edema in the metastatic sites involvi ng the susan and the LEFT cerebellar peduncle.
== END 2019-07-28 23:59 | disposition home or self-care (01) ==
LOC: ONCMED 05:43
PROVIDERS: Visit Provider Internal Medicine Medical Oncology
DX: C90.00 Multiple myeloma not having achieved remission (principal); C64.1 Malignant neoplasm of right kidney, except renal pelvis; C79.31 Secondary malignant neoplasm of brain; D70.1 Agranulocytosis secondary to cancer chemotherapy; E83.111 Hemochromatosis due to repeated red blood cell transfusions
CPT/HCPCS: 36415; 36430; 70553; 85025; 86850; 86900; 86902; 86920; A9579; J7050; P9040

== ENCOUNTER 2019-08-15 06:45 | Outpatient (RCR) | payer OTHER, MEDICARE, SELFPAY ==
--- NOTE | 2019-07-29 19:48 | ONC FU_ITS ---
Dr. Lazo Patient Follow-Up Note Patient: Malik Montiel Unit #: [id number]: [id number] Dicatated By: Ulysses Lazo M.D.Date of Visit:Jul 29, 2019 Onc Med Follow-up/Prog Note Chief Complaint: Anemia/lymphoma/myeloma/renal cell cancer. 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 He had presented in October 2015 with fatigue, shortness of breath, dizziness, and numbness/tingling. He was found on CBC to have a hemoglobin of 6.7 g. He received a transfusion of 2 U of packed red blood cells on 11/12/2015, and he subsequently felt much better. He had further laboratory evaluation on 11/12/2015 including haptoglobin which was normal at 71.8 mg/dL, normal serum iron at 133 mcg/dL with transferrin saturation 33%, and normal ferritin at 301 ng/mL. LDH was normal 166 U/L. Folate was elevated. Protein electrophoresis showed an IgG kappa monoclonal protein quantitating at 0.90 g/dL. The free kappa light chain was elevated at 344 mg/L, and the kappa: lambda ratio was elevated at 26.31. Skeletal survey on 11/19/2015 showed no evidence of lytic bone involvement. He underwent bone marrow aspiration/biopsy on 11/29/2015. The bone marrow was packed, cellularity 100%. It was a dry tap, so there was no aspirate available for analysis. The biopsy touch preps showed a proliferation of atypical mononuclear cells consistent with lymphoid origin. The bone marrow differential, based on the biopsy, showed an estimated 84% lymphocytes. The findings were felt to be consistent with extensive bone marrow involvement with a small B cell lymphoma with a diffuse pattern of infiltration. Plasma cells were noted to be just slightly increased with a slight kappa predilection. The immunophenotype of the B cell neoplasm was felt to be nonspecific, but favored marginal zone lymphoma. Iron stores were present 1+/4+. At the time of the bone marrow biopsy, his hemoglobin was back down to 7.7 g, and he did receive an additional 2 U of packed red blood cells. Staging PET/CT on 12/04/2015 showed an 8 cm heterogeneous mass involving the anterior right kidney with low grade FDG uptake, consistent with a probable incidental right renal cell carcinoma. There were no obvious sites of lymphoma or soft tissue plasmacytoma. Given the bone marrow findings, treatment with single agent rituximab weekly for 6 weeks was recommended. He received his week 1 infusion of rituximab on 12/16/15. He did experience an infusion reaction with it, but he subsequently tolerated treatment well with Solu-Medrol premedication. As of 01/20/2016 he completed his sixth weekly infusion. During the treatment he did show some symptomatic improvement, but he remained moderately anemic. Repeat bone marrow aspiration/biopsy on 02/23/2016 again showed a dry tap, with no obtainable aspirate. The cellularity was 100% with complete effacement by lymphoid proliferation consistent with the previous diagnosis of small B-cell lymphoma favoring marginal zone lymphoma. Whole blood flow cytometry showed rare CD5/CD10 double negative monotypic B cells with dim kappa light chain. The cells were positive for CD23 and negative for FMC-7. IHC demonstrated dim CD20 as well as strong CD43 and BCL-2. The cells were negative for CD5, CD10, CD3, BCL-6, BRAF, and CD21. The MYD-88 mutation was not detected. The findings were felt to be diagnostic of a small B-cell lymphoma. CT scans of the chest, abdomen, and pelvis on 03/15/2016 showed the large right renal mass measuring 10.5 x 8.4 x 8.7 cm, similar to the prior PET/CT. Left supraclavicular, AP window, mesenteric, and retroperitoneal lymphadenopathy were present on the prior PET CT from 12/04/2015 and were FDG negative. Also noted was a 5 mm spiculated nodule in the right middle lobe and additional 2 mm scattered noncalcified nodules in the left upper lobe. With those findings, he was seen by Dr. Mamadou Alvarado at [facility] for a second opinion evaluation. Evaluation included biopsy of the right renal mass, which did confirm involvement with lymphoma. He was recommended to continue treatment with a course of chemotherapy with bendamustine/Rituxan. He began cycle 1 of bendamustine/Rituxan on 04/21/2016. He was able to continue with cycle 2 on 05/19/2016 and with cycle 3 on 06/20/2016. The third cycle was delayed due to prolonged but not severe neutropenia. He was given Neulasta prophylactically with that cycle. He tolerated the treatment well, but there was still no improvement in his anemia. Restaging CT of the abdomen/pelvis on 07/19/2016 showed resolution of mesenteric and retroperitoneal lymphadenopathy, but no significant change in the complex right renal mass, measuring 10.5 x 8.7 x 9.2 cm. The spleen was still slightly enlarged. Repeat bone marrow aspiration/biopsy on 08/02/2016 showed persistent hypercellularity, estimated at 95-100%. Flow cytometry still showed evidence of a monoclonal B-cell population, but it accounted for only 1-2% of the marrow cellularity. Plasma cells were estimated at 10-20% with kappa light chain predominance, suggestive of plasma cell dyscrasia. Repeat protein electrophoresis showed persistent IgG kappa monoclonal protein, increased to 1.57 g/dL compared to 0.86 g/dL on 03/27/2016. The free kappa light chain was elevated at 753 mg/L with the kappa/lambda ration elevated at 70.64. A random urine showed a protein concentration of 8 mg/dL, 5.1% of which was monoclonal protein. Skeletal survey showed no lytic bone involvement. He returned to [facility] and he was seen by Dr. Jared Escobar on 10/16/2016. On their review of the bone marrow it was felt that the kappa restricted [id number] cells comprised 20 to 25% of the marrow aspirate, and he was recommended to begin treatment with KRd or VRd pending outcome of repeat bone marrow aspiration/biopsy and repeat staging PET/CT. PET/CT on 10/26/2016 showed FDG avid mixed cystic and solid right renal mass, SUV 2.1. A mildly prominent periaortic lymph node measuring 1.3 x 0.9 cm showed low-level uptake, SUV 2.7. A normal sized subcarinal lymph node showed mild hypermetabolism, SUV 2.5. There was no evidence of osseous involvement with myeloma. There was an abnormal focus of hypermetabolism within the left frontal cortex of the brain with maximum SUV 5.7, highly suspicious for neoplastic process. Further evaluation with brain MRI on 10/31/2016 showed numerous enhancing intraparenchymal metastatic lesions, estimated at 10-12 in number, the largest in the left frontal lobe measuring 2.1 cm. He returned to [facility] where he was admitted to the hospital and then completed additional evaluation with lumbar puncture and biopsy of the left frontal lobe mass. During that time he was transfused a total of 4 units of PRBC. He was discharged home on dexamethasone and Keppra. Pathology ultimately was nondiagnostic. During subsequent follow-up, he was tapered off dexamethasone. He then returned to [facility] and he underwent left frontal craniotomy with open biopsy of the left frontal lobe lesion. Pathology showed metastatic clear cell carcinoma consistent with renal primary. On 05/03/2017 he underwent right laparoscopic radical nephrectomy at [facility]. His tumor was noted to be locally advanced, with extension to the renal sinus, but it was completely resected. Pathology showed renal cell carcinoma measuring 9.5 cm, clear-cell type, WHO/ISUP grade 2. There was invasion of the renal sinus, but resection margins were uninvolved. There were no lymph nodes included in the specimen. Pathologic staging was pT3a, Nx. A noncontrast head CT on 06/07/2017 reported new multiple 5 mm hyperdense foci within the brain, but without a significant amount of surrounding edema or mass effect. He required further transfusions of packed red blood cells on 06/07/2017, on 07/03/2017, and on 07/19/2017. He had follow-up with Dr. Dereje Jones at [facility] on 07/24/2017. His repeat MRI at that time showed no evidence of recurrence within the left tumor cavity. The left posterior frontal treated lesion was noted to have less peritumoral edema and slightly less enhancement. The left insular tumor was difficult to detect, and the right posterior temporal tumors appeared approximately the same without any clear enhancement. Overall, it was felt that his brain lesions appeared adequately treated and with no new lesions identified. He was recommended to return for follow-up in 3 months. Restaging PET/CT on 08/11/2017 showed abnormal activity in the left supraclavicular lymph node, SUV 2.9. A 1 cm left superior mediastinal lymph node was FDG avid, SUV 4.4. A subcarinal lymph node measuring 1.5 cm was FDG avid with SUV 7.5 and a 1.5 cm right retrocrural node at the level of the diaphragmatic hiatus was noted to have mild abnormal FDG activity. Other small subcentimeter retroperitoneal lymph nodes showed no significant FDG activity. Multiple hepatic hypodensities were noted to be FDG negative and unchanged from the prior study in November 2015. There was no evidence of other metastatic disease. On 08/16/2017 he underwent repeat bone marrow aspiration/biopsy and biopsy of a left posterior cervical lymph node. Pathology on the lymph node showed small B-cell lymphoma with plasmacytic differentiation. The malignant cells were positive for CD45, CD19, CD20, CD23, and kappa light chain. They were negative for CD5, CD10, and FMC7. The reported differential included CD5 negative SLL/CLL versus marginal zone lymphoma. The bone marrow aspiration/biopsy was hypercellular with 100% cellularity. There was mild reticulin fibrosis noted. There were no overt dysplastic changes. There was no obvious infiltrative process identified. The flow cytometry demonstrated predominantly mature granulocytes. There were only rare polytypic B cells noted without aberrant antigen expression. There was no increase in CD34 positive blasts, CD117 positive immature precursors, or plasma cells. The FISH panels for myeloma and MDS were unrevealing, and the standard cytogenetic study was normal. Overall, the bone marrow was hypercellular but otherwise nondiagnostic. Given those findings, I had opted to just continue with observation and symptomatic/supportive measures. He remained transfusion dependent. His laboratory studies did show evidence of transfusion associated iron overload, and he then started treatment with Jadenu 14 mg/kg daily. A repeat brain MRI on 10/23/2017 showed postoperative changes of interval left frontal craniotomy with resection cavity and a small amount of surrounding glioma doses. A 5 mm enhancing lesion in the left posterior frontal lobe was felt to be new. There was associated small amount of surrounding edema and hemosiderin. The previously described enhancing lesions had showed interval resolution. There was interval significant improvement in the previously described edema. However, during follow-up he remained transfusion dependent, and there was gradual increase in his M protein. Restaging PET/CT on 02/02/2018 showed decrease in the left supraclavicular and left superior mediastinal lymph nodes which had been noted on the prior study. A 1.5 cm subcarinal lymph node appeared stable, SUV 8.8. There was progression of right retrocrural node and there was a new portal lymph node measuring 1.4 cm. Also noted were new bilateral retroperitoneal lymph nodes in the right and left periaortic chair territories. These were consistent with disease progression. In February 2017 he underwent reevaluation with Dr. Jared Escobar at [facility]. His repeat bone marrow aspiration/biopsy on 03/08/2018 showed extensive involvement with recurrent/persistent B-cell lymphoma, estimated at greater than 70% involvement. The morphologic and immunophenotypic features were felt to be most consistent with a B-cell lymphoma with plasmacytic differentiation. Also noted was a kappa restricted plasma cell population comprising 10% of the marrow cellularity. With those findings, it was recommended that he begin a course of chemotherapy with cyclophosphamide/Velcade/dexamethasone. He began cycle 1 of cyclophosphamide/Velcade/dexamethasone on 04/08/2018. He also started weekly Procrit injections for the anemia. He tolerated the treatment well and he was able to continue with cycle 2 on 04/29/2018. His cycle 2 day 8 cyclophosphamide and his day 11 Velcade were held and his cycle 3 was delayed due to neutropenia. He was able to continue with cycle 3 on 05/27/2018. It was again complicated by neutropenia, and that cycle was limited to day 1 cyclophosphamide and day 1/day 4 Velcade. During this time he continued Procrit injections weekly. He had remained transfusion dependent, though not as frequently. His repeat protein electrophoresis on 06/17/2018 showed stable M protein at 3.1 g/dL. He continued with cycle 4 of cyclophosphamide/Velcade/dexamethasone on 06/24/2018, with cycle 5 on 07/16/2018, and with cycle 6 on 08/05/2018. Repeat bone marrow aspiration/biopsy on 08/29/2018 showed hypercellular marrow at 100% cellularity with an atypical lymphoid proliferation comprising 70-75% of the hematopoietic population. Flow cytometry showed a monotypic B-cell population comprising 10% of the total cellularity. The B cells were positive for CD45, CD19, CD20, CD23, and kappa light chain. They were negative for CD5, CD10, and FMC7. Nucleated RBCs were noted to be markedly decreased and relative number. There was limited dyserythropoiesis. Ring sideroblasts were noted to comprise 10% of the population. 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 The FISH panel was positive for IGH gain ( trisomy for chromosomes 14 q/14 or IGH rearrangement). Restaging PET/CT on 08/31/2018 showed unchanged subcarinal mediastinal lymph node and interval development of new prevascular lymph node. There was interval progression of existing and development of new abdominal malignant adenopathy. Also noted was a new 5 mm right apical pulmonary nodule with SUV 3.7, suspicious for malignancy. On 09/09/2018 he was hospitalized with pneumonia. He had very gradual recovery following that illness, and during subsequent follow-up he remained transfusion dependent. He also has continued to have severe neutropenia, and his further chemotherapy has remain on hold. During this time he was treated with Neupogen, and he did show response, but his neutrophil count had then gradually declined again. I had seen him for a follow-up visit on 11/19/2018. At that point I had recommended a trial of therapy with venetoclax together with Neupogen or Neulasta. We were able to get insurance approval for the venetoclax, but not the growth factor. He had opted, though, to delay starting treatment until after deer hunting season. During that time, he continued to require PRBC transfusion on a regular basis. Sometime near the end of November 2018 he had fallen at home and sustained an injury to his left rib cage. Due to persistent pain in that area and to the delay in starting his treatment, I had recommended that he have restaging CT scans. His CT scans of the chest, abdomen, and pelvis on 01/27/2019 showed long-term stability of an irregular 5 mm pulmonary nodule in the right middle lobe. A right apical lymph node was no longer present. Left upper pneumonia appeared to have resolved. There was persistent small left pleural effusion but resolution of right pleural effusion. There were numerous small axillary, mediastinal, and hilar lymph nodes, largest in the subcarinal area measuring 2.5 x 2.0 cm. There were numerous left-sided rib fractures. The spleen was noted to be enlarged measuring 17.3 cm. Low-attenuation throughout the liver felt to be compatible with cysts. There appeared to be increasing size and number of retrocrural, mesenteric, and retroperitoneal adenopathy, but the increase was in the range of 2 to 3 mm in diameter. On 01/29/2019 he started treatment with venetoclax at 20 mg daily. I also had him start prednisone 20 mg daily. He tolerated the low dosage with no adverse effects, and he then continued to escalate the dosage per the standard protocol. As of 02/17/2019 he had persistent but stable neutropenia. He had remained transfusion dependent. As of 02/19/2019 the venetoclax dosage was increased to 200 mg daily, and as of 02/26/2019 it was further escalated to 400 mg daily. As of 03/06/2019 the venetoclax was put on hold due to worsening neutropenia, with ANC 200. He then started growth factor support with Neupogen 300 mcg daily. Within 3 days the white count had come up to 6300 with absolute neutrophil count 5400, and the Neupogen was stopped. At that point the platelet count had also increased significantly, from 134,000 to 199,000. He was then able to restart venetoclax at 400 mg daily with no recurrence of the neutropenia. He began cycle 1 of rituximab on 03/13/2019. He tolerated it well, and he continued the venetoclax 400 mg daily. He received cycle 2 of rituximab on 04/10/2019 and cycle 3 on 05/08/2019. During that time his hemoglobin had fluctuated between 8 and 9 g, and he had remained transfusion independent since 02/11/2019. His repeat protein electrophoresis on 04/10/2019 showed decrease in the M protein to 1.2 g/dL. However, during subsequent follow-up, there was further decline in his hemoglobin/hematocrit levels, and he again required PRBC transfusions. His past medical history is unremarkable. He has had no prior medical illnesses. His only other surgery was a hernia repair. He is a nonsmoker. INTERIM HISTORY: A repeat brain MRI on 05/15/2019 showed innumerable new metastatic sites throughout the cerebrum, cerebellum, and brainstem. There was increasing edema surrounding several sites and there was evidence for associated hemorrhage. That disc was forwarded to the radiation oncology department at [facility]. It was reviewed by Dr. Samantha Parks and due to the brainstem involvement, it was recommended that he initially undergo palliative whole brain radiation. He completed the whole brain radiation on 06/27/2019, total dose 3000 cGy. He tolerated it well. During that time his steroid was changed from prednisone to dexamethasone. Restaging PET/CT on 06/28/2019 showed new FDG avid supraclavicular lymph nodes bilaterally, more prominent on the left, with SUV up to 8.3. Also noted was progression of the subcarinal lymph node with SUV up to 11.6. A prevascular lymph node was noted to have resolved and a right apical pulmonary nodule had resolved. There was also improvement in upper abdominal adenopathy, but with residual FDG avid portal adenopathy with SUV 4.3. There was stable retroperitoneal adenopathy which included a left periodic lymph node with SUV 10.8. He is seen for an unplanned visit. He had presented to the emergency room yesterday with increasing weakness, predominantly in the right leg. He had also been getting generally weaker and he continued to have other neurologic symptoms including double vision, altered balance, and numbness in the left leg. He had also developed urinary retention, requiring placement of Malloy catheter. Head MRI showed progression in the size and number of hemorrhagic metastatic sites throughout the brain. There was a significant amount of associated vasogenic edema surrounding new metastatic lesions in the left susan. There was a large amount of edema noted throughout the susan and left cerebellar peduncle. Edema was noted to extend through large portion of the susan and was noted to cross the midline to the right. Edema was noted to extend into the midbrain. Some of the lesions appeared hemorrhagic. CT of the lumbar spine showed no evidence of fracture, but he was noted to have an enhancing mass in the left thecal sac at the upper L1 level suggesting a high likelihood of intrathecal metastasis. He was given IV dexamethasone and discharged home with his oral dexamethasone dosage increased to 6 mg every 6 hours. He is not had any significant symptomatic improvement with the increase in his steroid dosage. Medications: Acetaminophen 1 (325 mg) Tablet Oral q 4 hours PRN, Cetirizine HCl 1 Tablet (of 10 mg) Oral b.i.d., Decadron 2 Tablet (of 4 mg) Oral b.i.d., Dronabinol 1 (5 mg) Capsule Oral b.i.d., Levaquin 500 (500 mg) Tablet Oral PRN, Pantoprazole Sodium 1 Tablet (of 40 mg) Tablet, enteric coated Oral daily PRN, Prochlorperazine Maleate 1 Tablet (of 10 mg) Oral q 4 hours PRN, Tamsulosin HCl 2 (0.4 mg) Capsule Oral at bedtime, Voltaren Gel (jelly) Transdermal PRN Allergies: No Known Allergies. Review of Systems: Constitutional - His overall performance status continues to decline. He is mainly sedentary at home. He is now mainly using a wheelchair. His appetite is okay and weight is stable. No fever, night sweats, or hot flashes. ECOG score is 3, Eyes - He is having significant visual disturbances including double visiom, ENMT - No sinus congestion/drainage. No mouth sores. No sore throat or difficulty swallowing, Hematologic/Lymphatic - He bruises easily, Respiratory - No shortness of breath. No cough. No pleuritic pain or hemoptysis, Cardiovascular - No angina pain. No palpitations, Gastrointestinal - He continues to have intermittent nausea. This is adequately controlled with ODT Zofran. No vomiting. No heartburn or acid reflux. No diarrhea or constipation. No blood in the stool or black stools, Genitourinary (M) - He had Malloy that was placed in the ER yesterday for urinary retention, Musculoskeletal - No joint or bone pain, Integumentary - No skin complications, Neurologic - No headache. He is having persistent dizziness and he continues to have significant balance issues. He has complete numbness in his right leg and intermittent numbness and tingling in his left foot and toes, which is new, Psychiatric - No anxiety or depression. No insomnia. Vital Signs: Performed on Jul 29, 2019 09:07 Height - 73.00 in Weight - 154 lbs BSA - 1.93 sq.m BMI - 20.32 Temperature - 97.6 F (LOW) Pulse - 58 /min (LOW) Respiration - 16 /min BP - 102/68 mm(hg) O2 Sat - 99 % Pain - 0 Lab/Imaging: His CBC yesterday showed hemoglobin 9.5 g, white blood cell count 5700, and platelet count 249,000. Impression: 1. Patient with multiple malignancies including marginal zone lymphoma, stage IV renal cell carcinoma, and suspected myeloma. 2. He had initially presented in October 2015 with anemia and IgG kappa monoclonal gammopathy. 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 He also was found to have a large right renal mass. He underwent treatment with 6 weekly infusions of rituximab, completed on 01/20/2016. 3. Repeat bone marrow aspiration/biopsy on 02/23/2016 again showed 100% cellularity with complete effacement by a lymphoid proliferation. 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 4. He then had a second opinion evaluation with Dr. Mamadou Alvarado at [facility]. His evaluation there had included biopsy the right renal mass, with pathology reporting involvement with lymphoma. He was advised to continue treatment with a course of bendamustine/Rituxan chemotherapy, which began on 04/21/2016. He completed 3 cycles of treatment. He had prolonged but not severe neutropenia after the second cycle, and he did receive Neulasta prophylaxis with cycle 3. He tolerated the treatment well otherwise. However, he remained moderately anemic. His restaging CT abdomen/pelvis on 07/19/2016 showed resolution of the small mesenteric and retroperitoneal lymph nodes, but no significant change in the right renal mass. 5. His repeat bone marrow aspiration/biopsy on 08/02/2016 showed only a small amount of residual monoclonal B cells, estimated at 1-2% of the marrow cellularity. [place] restricted plasma cells were estimated at 20-25% of the cellularity, suspicious for plasma cell dyscrasia. His repeat protein electrophoresis showed an increase in his M protein to 1.57 g/dL. Skeletal survey showed no evidence of lytic bone involvement. Overall, the findings were felt to be consistent with myeloma. 6. He underwent left frontal craniotomy with excision of brain metastasis on 03/14/2017, pathology consistent with metastatic renal cell carcinoma. He underwent gamma knife radiosurgery to 4 additional brain lesions. 7. He underwent cytoreductive right laparoscopic radical nephrectomy on 05/03/2017. Pathology showed grade 2 renal cell carcinoma measuring 9.5 cm, clear cell type, pathologic stage T3a, NX. 8. In August 2017 he began treatment with Jadenu 14 mg/kg daily for transfusion associated iron overload. 9. Restaging PET/CT in January 2018 showed mild progression of lymphadenopathy, mainly in the carleen hepatis and retroperitoneal area. His repeat bone marrow aspiration/biopsy on 03/08/2018 showed extensive involvement with B-cell lymphoma, estimated at greater than 70% involvement. 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 10. On 04/08/2018 he began a course of treatment with cyclophosphamide, Velcade, and dexamethasone. He had significant treatment delays due to cytopenias. He ultimately completed his 6 cycle of treatment In July 2018. 11. His restaging bone marrow aspiration/biopsy 08/29/2018 showed 100% cellularity with 70-75% atypical lymphocytes, consistent with residual lymphoma. 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 There also was evidence of disease progression on his restaging PET/CT. 12. On 09/09/2018 he was admitted to the hospital with pneumonia. He has been showing gradual recovery, but during this time he had a significant decline in his performance status. He remained transfusion dependent anemia, and he had moderately severe neutropenia and thrombocytopenia. 13. In September 2018 he began trial of therapy with ibrutinib 420 mg daily. Within a short time he had become severely neutropenic, and the ibrutinib was put on hold. 14. His restaging CT scans on 01/27/2019 showed some progression of lymphadenopathy, though still not bulky. With evidence of disease progression and with declining performance status, I opted to have him begin treatment with venetoclax/rituximab. He began the venetoclax on 01/29/2019 at a dose of 20 mg daily. At that time I also had him start prednisone 20 mg daily. He was able to tolerate the low dosage of venetoclax with no adverse effects, and he then continued escalating the dosage per the standard protocol. As of 02/17/2019 he had continued to have moderately severe but stable neutropenia. He had also remained transfusion dependent. As of 02/19/2019 the venetoclax dosage was increased to 200 mg daily, and as of 02/26/2019 it was further escalated to 400 mg daily. As of 03/06/2019 his treatment was put on hold due to worsening neutropenia, ANC 200. He then started growth factor support with Neupogen. He had a very good response. Within 3 days his absolute neutrophil count had increased to 5400. He was able to restart venetoclax with no recurrence of the neutropenia. He then began cycle 1 of rituximab on 03/13/2019. He tolerated it with no adverse effects. He then continued the venetoclax at 400 mg daily and he continue with cycle 2 of rituximab on 04/10/2019 and with cycle 3 on 05/08/2019. During treatment with venetoclax/rituximab there was evidence of response with increase in the white blood cell count and platelet count and with a significant decrease in the M protein, down to 0.6 g/dL compared to a maximum of 3.0 g/dL. His hemoglobin initially appeared to be showing some improvement, but he subsequently became transfusion dependent again. His repeat brain MRI on 05/15/2019 showed multiple new small metastases involving the cerebrum, cerebellum, and brainstem. He was recommended to undergo palliative whole brain radiation. He completed treatment on 06/27/2019 to a total dose of 3000 cGy. He tolerated it well. His restaging PET/CT on 06/28/2019 showed evidence of some progression of lymph node involvement, mainly in the neck area. During subsequent follow-up his neurologic symptoms have continued to worsen, and there has been significant decline in his performance status. His restaging brain MRI on 07/28/2019 showed significant progression of multiple metastatic lesions in the brain. The most significant area of progression was in the left susan. There was associated edema which was noted to cross the midline to the right. There was at least 1 additional intrathecal metastatic lesion noted on lumbar spine CT scan. Plan: The MRI and CT findings were reviewed with the patient and his and his daughter. He has had obvious progression of [place] metastatic disease despite the whole brain radiation. At this point there are really no effective treatment options, particularly with the main area of progression involving the susan. It is also discouraging that he is showing no symptomatic improvement on the higher dose steroid regimen. As such, he will change the dexamethasone to 8 mg twice daily, and he can taper that gradually as tolerated. His management is otherwise symptomatic/supportive. At least for the time being he wishes to continue his transfusion support, so I will continue to monitor his blood counts weekly. He potentially would benefit with physical therapy, and I will request home health referral. In addition, he now has a neurologic condition which is severely restricting ability to perform ADLs, and that potentially would improve with use of a wheelchair. He will have family available with him at all times who can assist him with the operation of a manual wheelchair, and that also will be requested. We discussed the fact that there would potentially be other options for systemic therapy for either the renal cell cancer or the lymphoma, but none of these would be effective for controlling his [place] disease. As such, the overall prognosis is very poor. He is advised now to stop the Jadenu and he also should not be taking any aspirin. He has Zofran ODT to use as needed, and he also can continue the dronabinol for nausea/anorexia. He will continue pantoprazole 40 mg daily. As always he has an indwelling M[place] catheter, there will be no benefit in taking tamsulosin. I am going to plan to see him again as needed. [id number] time with patient was more than 30 minutes, greater than 50% spent in counseling/discussion. Signed By: Ulysses Lazo M.D. <<Signature on File>>
[2019-08-08 09:04] LABS: Basophils % 0.2 %; Hematocrit 26.8 % (42.0-52.0); Hemoglobin 8.6 g/dL (11.7-16.6); Lymphocytes # 0.5 10^3/uL (0.8-4.8); Lymphocytes % 3.5 %; Mean Corpuscular HGB Conc 32.1 g/dL (30.0-36.0); Mean Corpuscular Hemoglobin 28.5 pg (28.0-34.0); Mean Corpuscular Volume 88.7 fL (80-94); Mean Platelet Volume 10.1 fL (7.4-10.4); Monocytes % 6.5 %; Neutrophils # 11.2 10^3/uL (1.8-7.7); Neutrophils % 76.9 %; Nucleated Red Blood Cells % 0 %; Platelet Count 400 10^3/cmm (130-400); Red Blood Count 3.02 10^6/uL (4.1-5.3); Red Cell Distribution Width 13.8 % (12.1-15.1); White Blood Count 14.6 10^3/uL (4.0-10.0)
[2019-08-08 09:21] LABS: Slide Review Slide Review Perform
[2019-08-13 15:01] LABS: Basophils % 0.1 %; Eosinophils % 0.1 %; Hematocrit 24.1 % (42.0-52.0); Hemoglobin 7.5 g/dL (11.7-16.6); Lymphocytes # 0.2 10^3/uL (0.8-4.8); Lymphocytes % 1.1 %; Mean Corpuscular HGB Conc 31.1 g/dL (30.0-36.0); Mean Corpuscular Volume 89.9 fL (80-94); Mean Platelet Volume 9.9 fL (7.4-10.4); Monocytes # 0.5 10^3/uL (0.2-0.9); Monocytes % 3.5 %; Neutrophils # 12.9 10^3/uL (1.8-7.7); Neutrophils % 86.5 %; Nucleated Red Blood Cells % 0 %; Platelet Count 353 10^3/cmm (130-400); Red Blood Count 2.68 10^6/uL (4.1-5.3); Red Cell Distribution Width 13.7 % (12.1-15.1); White Blood Count 14.9 10^3/uL (4.0-10.0)
[2019-08-13 16:00] LABS: Slide Review Slide Review Perform
[2019-08-15] VITALS (10 sets, daily range): BP systolic 101–113; BP diastolic 62–70; PULSE 56–63; RESP 16–20; TEMP 36.1–36.8; O2SAT 96–98
[2019-08-15] MEDS: sodium chloride 0.9% 250 ML 999 ML IV (08:37)
== END 2019-08-19 23:59 | disposition home or self-care (01) ==
LOC: ONCMED 06:45
PROVIDERS: Nurse Practitioner; Visit Provider Internal Medicine Medical Oncology
DX: C90.00 Multiple myeloma not having achieved remission (principal); C85.80 Other specified types of non-Hodgkin lymphoma, unspecified site; C64.1 Malignant neoplasm of right kidney, except renal pelvis; C79.31 Secondary malignant neoplasm of brain; E83.111 Hemochromatosis due to repeated red blood cell transfusions; D70.1 Agranulocytosis secondary to cancer chemotherapy; T45.1X5A Adverse effect of antineoplastic and immunosuppressive drugs, initial encounter; Z79.899 Other long term (current) drug therapy
CPT/HCPCS: 36415; 36430; 85025; 86850; 86900; 86902; 86920; 99214; J7050; P9040

== ENCOUNTER 2019-08-26 08:52 | Outpatient (RCR) | payer OTHER, MEDICARE, SELFPAY ==
[2019-08-21 09:57] LABS: Basophils % 0.1 %; Eosinophils % 0.1 %; Hematocrit 24.9 % (42.0-52.0); Hemoglobin 7.9 g/dL (11.7-16.6); Lymphocytes # 0.2 10^3/uL (0.8-4.8); Lymphocytes % 2.5 %; Mean Corpuscular HGB Conc 31.7 g/dL (30.0-36.0); Mean Corpuscular Hemoglobin 28.3 pg (28.0-34.0); Mean Corpuscular Volume 89.2 fL (80-94); Mean Platelet Volume 10.2 fL (7.4-10.4); Monocytes # 0.3 10^3/uL (0.2-0.9); Monocytes % 2.8 %; Neutrophils # 7.6 10^3/uL (1.8-7.7); Neutrophils % 83.8 %; Nucleated Red Blood Cells % 0 %; Platelet Count 198 10^3/cmm (130-400); Red Blood Count 2.79 10^6/uL (4.1-5.3); Red Cell Distribution Width 13.6 % (12.1-15.1)
[2019-08-21 10:56] LABS: Slide Review Slide Review Perform
[2019-08-26] VITALS (10 sets, daily range): BP systolic 101–121; BP diastolic 64–79; PULSE 53–59; RESP 18; TEMP 36.3–36.6; O2SAT 96–99
[2019-08-26 08:58] LABS: Basophils % 0.2 %; Hematocrit 23.7 % (42.0-52.0); Hemoglobin 7.5 g/dL (11.7-16.6); Lymphocytes # 0.4 10^3/uL (0.8-4.8); Lymphocytes % 6.6 %; Mean Corpuscular HGB Conc 31.6 g/dL (30.0-36.0); Mean Corpuscular Hemoglobin 28.5 pg (28.0-34.0); Mean Corpuscular Volume 90.1 fL (80-94); Mean Platelet Volume 10.6 fL (7.4-10.4); Monocytes # 0.2 10^3/uL (0.2-0.9); Monocytes % 2.9 %; Neutrophils # 5.1 10^3/uL (1.8-7.7); Neutrophils % 81.8 %; Nucleated Red Blood Cells % 0 %; Platelet Count 232 10^3/cmm (130-400); Red Blood Count 2.63 10^6/uL (4.1-5.3); Red Cell Distribution Width 13.5 % (12.1-15.1); White Blood Count 6.2 10^3/uL (4.0-10.0)
[2019-08-26] MEDS: sodium chloride 0.9% 250 ML 999 ML IV (09:30)
[2019-08-26] MEDS: fluconazole premix 400 MG/200 ML PIGGYBACK 200 MG IV (09:30)
[2019-08-26 09:31] LABS: Slide Review Slide Review Perform
[2019-08-26] MEDS: morphine 4 mg/mL SDV 1 mL IV ×2 (12:00→13:48)
--- NOTE | 2019-08-26 20:13 | ONC FU_ITS ---
Dr. Lazo Patient Follow-Up Note Patient: Malik Montiel Unit #: [id number]: 1950 Dicatated By: Ulysses Lazo M.D.Date of Visit:Aug 26, 2019 Onc Med Follow-up/Prog Note Chief Complaint: Anemia/lymphoma/myeloma/renal cell cancer. 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 He had presented in October 2015 with fatigue, shortness of breath, dizziness, and numbness/tingling. He was found on CBC to have a hemoglobin of 6.7 g. He received a transfusion of 2 U of packed red blood cells on 11/12/2015, and he subsequently felt much better. He had further laboratory evaluation on 11/12/2015 including haptoglobin which was normal at 71.8 mg/dL, normal serum iron at 133 mcg/dL with transferrin saturation 33%, and normal ferritin at 301 ng/mL. LDH was normal 166 U/L. Folate was elevated. Protein electrophoresis showed an IgG kappa monoclonal protein quantitating at 0.90 g/dL. The free kappa light chain was elevated at 344 mg/L, and the kappa: lambda ratio was elevated at 26.31. Skeletal survey on 11/19/2015 showed no evidence of lytic bone involvement. He underwent bone marrow aspiration/biopsy on 11/29/2015. The bone marrow was packed, cellularity 100%. It was a dry tap, so there was no aspirate available for analysis. The biopsy touch preps showed a proliferation of atypical mononuclear cells consistent with lymphoid origin. The bone marrow differential, based on the biopsy, showed an estimated 84% lymphocytes. The findings were felt to be consistent with extensive bone marrow involvement with a small B cell lymphoma with a diffuse pattern of infiltration. Plasma cells were noted to be just slightly increased with a slight kappa predilection. The immunophenotype of the B cell neoplasm was felt to be nonspecific, but favored marginal zone lymphoma. Iron stores were present 1+/4+. At the time of the bone marrow biopsy, his hemoglobin was back down to 7.7 g, and he did receive an additional 2 U of packed red blood cells. Staging PET/CT on 12/04/2015 showed an 8 cm heterogeneous mass involving the anterior right kidney with low grade FDG uptake, consistent with a probable incidental right renal cell carcinoma. There were no obvious sites of lymphoma or soft tissue plasmacytoma. Given the bone marrow findings, treatment with single agent rituximab weekly for 6 weeks was recommended. He received his week 1 infusion of rituximab on 12/16/15. He did experience an infusion reaction with it, but he subsequently tolerated treatment well with Solu-Medrol premedication. As of 01/20/2016 he completed his sixth weekly infusion. During the treatment he did show some symptomatic improvement, but he remained moderately anemic. Repeat bone marrow aspiration/biopsy on 02/23/2016 again showed a dry tap, with no obtainable aspirate. The cellularity was 100% with complete effacement by lymphoid proliferation consistent with the previous diagnosis of small B-cell lymphoma favoring marginal zone lymphoma. Whole blood flow cytometry showed rare CD5/CD10 double negative monotypic B cells with dim kappa light chain. The cells were positive for CD23 and negative for FMC-7. IHC demonstrated dim CD20 as well as strong CD43 and BCL-2. The cells were negative for CD5, CD10, CD3, BCL-6, BRAF, and CD21. The MYD-88 mutation was not detected. The findings were felt to be diagnostic of a small B-cell lymphoma. CT scans of the chest, abdomen, and pelvis on 03/15/2016 showed the large right renal mass measuring 10.5 x 8.4 x 8.7 cm, similar to the prior PET/CT. Left supraclavicular, AP window, mesenteric, and retroperitoneal lymphadenopathy were present on the prior PET CT from 12/04/2015 and were FDG negative. Also noted was a 5 mm spiculated nodule in the right middle lobe and additional 2 mm scattered noncalcified nodules in the left upper lobe. With those findings, he was seen by Dr. Mamadou Alvarado at [facility] for a second opinion evaluation. Evaluation included biopsy of the right renal mass, which did confirm involvement with lymphoma. He was recommended to continue treatment with a course of chemotherapy with bendamustine/Rituxan. He began cycle 1 of bendamustine/Rituxan on 04/21/2016. He was able to continue with cycle 2 on 05/19/2016 and with cycle 3 on 06/20/2016. The third cycle was delayed due to prolonged but not severe neutropenia. He was given Neulasta prophylactically with that cycle. He tolerated the treatment well, but there was still no improvement in his anemia. Restaging CT of the abdomen/pelvis on 07/19/2016 showed resolution of mesenteric and retroperitoneal lymphadenopathy, but no significant change in the complex right renal mass, measuring 10.5 x 8.7 x 9.2 cm. The spleen was still slightly enlarged. Repeat bone marrow aspiration/biopsy on 08/02/2016 showed persistent hypercellularity, estimated at 95-100%. Flow cytometry still showed evidence of a monoclonal B-cell population, but it accounted for only 1-2% of the marrow cellularity. Plasma cells were estimated at 10-20% with kappa light chain predominance, suggestive of plasma cell dyscrasia. Repeat protein electrophoresis showed persistent IgG kappa monoclonal protein, increased to 1.57 g/dL compared to 0.86 g/dL on 03/27/2016. The free kappa light chain was elevated at 753 mg/L with the kappa/lambda ration elevated at 70.64. A random urine showed a protein concentration of 8 mg/dL, 5.1% of which was monoclonal protein. Skeletal survey showed no lytic bone involvement. He returned to [facility] and he was seen by Dr. Jared Escobar on 10/16/2016. On their review of the bone marrow it was felt that the kappa restricted [id number] cells comprised 20 to 25% of the marrow aspirate, and he was recommended to begin treatment with KRd or VRd pending outcome of repeat bone marrow aspiration/biopsy and repeat staging PET/CT. PET/CT on 10/26/2016 showed FDG avid mixed cystic and solid right renal mass, SUV 2.1. A mildly prominent periaortic lymph node measuring 1.3 x 0.9 cm showed low-level uptake, SUV 2.7. A normal sized subcarinal lymph node showed mild hypermetabolism, SUV 2.5. There was no evidence of osseous involvement with myeloma. There was an abnormal focus of hypermetabolism within the left frontal cortex of the brain with maximum SUV 5.7, highly suspicious for neoplastic process. Further evaluation with brain MRI on 10/31/2016 showed numerous enhancing intraparenchymal metastatic lesions, estimated at 10-12 in number, the largest in the left frontal lobe measuring 2.1 cm. He returned to [facility] where he was admitted to the hospital and then completed additional evaluation with lumbar puncture and biopsy of the left frontal lobe mass. During that time he was transfused a total of 4 units of PRBC. He was discharged home on dexamethasone and Keppra. Pathology ultimately was nondiagnostic. During subsequent follow-up, he was tapered off dexamethasone. He then returned to [facility] and he underwent left frontal craniotomy with open biopsy of the left frontal lobe lesion. Pathology showed metastatic clear cell carcinoma consistent with renal primary. On 05/03/2017 he underwent right laparoscopic radical nephrectomy at [facility]. His tumor was noted to be locally advanced, with extension to the renal sinus, but it was completely resected. Pathology showed renal cell carcinoma measuring 9.5 cm, clear-cell type, WHO/ISUP grade 2. There was invasion of the renal sinus, but resection margins were uninvolved. There were no lymph nodes included in the specimen. Pathologic staging was pT3a, Nx. A noncontrast head CT on 06/07/2017 reported new multiple 5 mm hyperdense foci within the brain, but without a significant amount of surrounding edema or mass effect. He required further transfusions of packed red blood cells on 06/07/2017, on 07/03/2017, and on 07/19/2017. He had follow-up with Dr. Dereje Jones at [facility] on 07/24/2017. His repeat MRI at that time showed no evidence of recurrence within the left tumor cavity. The left posterior frontal treated lesion was noted to have less peritumoral edema and slightly less enhancement. The left insular tumor was difficult to detect, and the right posterior temporal tumors appeared approximately the same without any clear enhancement. Overall, it was felt that his brain lesions appeared adequately treated and with no new lesions identified. He was recommended to return for follow-up in 3 months. Restaging PET/CT on 08/11/2017 showed abnormal activity in the left supraclavicular lymph node, SUV 2.9. A 1 cm left superior mediastinal lymph node was FDG avid, SUV 4.4. A subcarinal lymph node measuring 1.5 cm was FDG avid with SUV 7.5 and a 1.5 cm right retrocrural node at the level of the diaphragmatic hiatus was noted to have mild abnormal FDG activity. Other small subcentimeter retroperitoneal lymph nodes showed no significant FDG activity. Multiple hepatic hypodensities were noted to be FDG negative and unchanged from the prior study in November 2015. There was no evidence of other metastatic disease. On 08/16/2017 he underwent repeat bone marrow aspiration/biopsy and biopsy of a left posterior cervical lymph node. Pathology on the lymph node showed small B-cell lymphoma with plasmacytic differentiation. The malignant cells were positive for CD45, CD19, CD20, CD23, and kappa light chain. They were negative for CD5, CD10, and FMC7. The reported differential included CD5 negative SLL/CLL versus marginal zone lymphoma. The bone marrow aspiration/biopsy was hypercellular with 100% cellularity. There was mild reticulin fibrosis noted. There were no overt dysplastic changes. There was no obvious infiltrative process identified. The flow cytometry demonstrated predominantly mature granulocytes. There were only rare polytypic B cells noted without aberrant antigen expression. There was no increase in CD34 positive blasts, CD117 positive immature precursors, or plasma cells. The FISH panels for myeloma and MDS were unrevealing, and the standard cytogenetic study was normal. Overall, the bone marrow was hypercellular but otherwise nondiagnostic. Given those findings, I had opted to just continue with observation and symptomatic/supportive measures. He remained transfusion dependent. His laboratory studies did show evidence of transfusion associated iron overload, and he then started treatment with Jadenu 14 mg/kg daily. A repeat brain MRI on 10/23/2017 showed postoperative changes of interval left frontal craniotomy with resection cavity and a small amount of surrounding glioma doses. A 5 mm enhancing lesion in the left posterior frontal lobe was felt to be new. There was associated small amount of surrounding edema and hemosiderin. The previously described enhancing lesions had showed interval resolution. There was interval significant improvement in the previously described edema. However, during follow-up he remained transfusion dependent, and there was gradual increase in his M protein. Restaging PET/CT on 02/02/2018 showed decrease in the left supraclavicular and left superior mediastinal lymph nodes which had been noted on the prior study. A 1.5 cm subcarinal lymph node appeared stable, SUV 8.8. There was progression of right retrocrural node and there was a new portal lymph node measuring 1.4 cm. Also noted were new bilateral retroperitoneal lymph nodes in the right and left periaortic chair territories. These were consistent with disease progression. In February 2017 he underwent reevaluation with Dr. Jared Escobar at [facility]. His repeat bone marrow aspiration/biopsy on 03/08/2018 showed extensive involvement with recurrent/persistent B-cell lymphoma, estimated at greater than 70% involvement. The morphologic and immunophenotypic features were felt to be most consistent with a B-cell lymphoma with plasmacytic differentiation. Also noted was a kappa restricted plasma cell population comprising 10% of the marrow cellularity. With those findings, it was recommended that he begin a course of chemotherapy with cyclophosphamide/Velcade/dexamethasone. He began cycle 1 of cyclophosphamide/Velcade/dexamethasone on 04/08/2018. He also started weekly Procrit injections for the anemia. He tolerated the treatment well and he was able to continue with cycle 2 on 04/29/2018. His cycle 2 day 8 cyclophosphamide and his day 11 Velcade were held and his cycle 3 was delayed due to neutropenia. He was able to continue with cycle 3 on 05/27/2018. It was again complicated by neutropenia, and that cycle was limited to day 1 cyclophosphamide and day 1/day 4 Velcade. During this time he continued Procrit injections weekly. He had remained transfusion dependent, though not as frequently. His repeat protein electrophoresis on 06/17/2018 showed stable M protein at 3.1 g/dL. He continued with cycle 4 of cyclophosphamide/Velcade/dexamethasone on 06/24/2018, with cycle 5 on 07/16/2018, and with cycle 6 on 08/05/2018. Repeat bone marrow aspiration/biopsy on 08/29/2018 showed hypercellular marrow at 100% cellularity with an atypical lymphoid proliferation comprising 70-75% of the hematopoietic population. Flow cytometry showed a monotypic B-cell population comprising 10% of the total cellularity. The B cells were positive for CD45, CD19, CD20, CD23, and kappa light chain. They were negative for CD5, CD10, and FMC7. Nucleated RBCs were noted to be markedly decreased and relative number. There was limited dyserythropoiesis. Ring sideroblasts were noted to comprise 10% of the population. 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 The FISH panel was positive for IGH gain ( trisomy for chromosomes 14 q/14 or IGH rearrangement). Restaging PET/CT on 08/31/2018 showed unchanged subcarinal mediastinal lymph node and interval development of new prevascular lymph node. There was interval progression of existing and development of new abdominal malignant adenopathy. Also noted was a new 5 mm right apical pulmonary nodule with SUV 3.7, suspicious for malignancy. On 09/09/2018 he was hospitalized with pneumonia. He had very gradual recovery following that illness, and during subsequent follow-up he remained transfusion dependent. He also has continued to have severe neutropenia, and his further chemotherapy has remain on hold. During this time he was treated with Neupogen, and he did show response, but his neutrophil count had then gradually declined again. I had seen him for a follow-up visit on 11/19/2018. At that point I had recommended a trial of therapy with venetoclax together with Neupogen or Neulasta. We were able to get insurance approval for the venetoclax, but not the growth factor. He had opted, though, to delay starting treatment until after deer hunting season. During that time, he continued to require PRBC transfusion on a regular basis. Sometime near the end of November 2018 he had fallen at home and sustained an injury to his left rib cage. Due to persistent pain in that area and to the delay in starting his treatment, I had recommended that he have restaging CT scans. His CT scans of the chest, abdomen, and pelvis on 01/27/2019 showed long-term stability of an irregular 5 mm pulmonary nodule in the right middle lobe. A right apical lymph node was no longer present. Left upper pneumonia appeared to have resolved. There was persistent small left pleural effusion but resolution of right pleural effusion. There were numerous small axillary, mediastinal, and hilar lymph nodes, largest in the subcarinal area measuring 2.5 x 2.0 cm. There were numerous left-sided rib fractures. The spleen was noted to be enlarged measuring 17.3 cm. Low-attenuation throughout the liver felt to be compatible with cysts. There appeared to be increasing size and number of retrocrural, mesenteric, and retroperitoneal adenopathy, but the increase was in the range of 2 to 3 mm in diameter. On 01/29/2019 he started treatment with venetoclax at 20 mg daily. I also had him start prednisone 20 mg daily. He tolerated the low dosage with no adverse effects, and he then continued to escalate the dosage per the standard protocol. As of 02/17/2019 he had persistent but stable neutropenia. He had remained transfusion dependent. As of 02/19/2019 the venetoclax dosage was increased to 200 mg daily, and as of 02/26/2019 it was further escalated to 400 mg daily. As of 03/06/2019 the venetoclax was put on hold due to worsening neutropenia, with ANC 200. He then started growth factor support with Neupogen 300 mcg daily. Within 3 days the white count had come up to 6300 with absolute neutrophil count 5400, and the Neupogen was stopped. At that point the platelet count had also increased significantly, from 134,000 to 199,000. He was then able to restart venetoclax at 400 mg daily with no recurrence of the neutropenia. He began cycle 1 of rituximab on 03/13/2019. He tolerated it well, and he continued the venetoclax 400 mg daily. He received cycle 2 of rituximab on 04/10/2019 and cycle 3 on 05/08/2019. During that time his hemoglobin had fluctuated between 8 and 9 g, and he had remained transfusion independent since 02/11/2019. His repeat protein electrophoresis on 04/10/2019 showed decrease in the M protein to 1.2 g/dL. However, during subsequent follow-up, there was further decline in his hemoglobin/hematocrit levels, and he again required PRBC transfusions. His past medical history is unremarkable. He has had no prior medical illnesses. His only other surgery was a hernia repair. He is a nonsmoker. INTERIM HISTORY: A repeat brain MRI on 05/15/2019 showed innumerable new metastatic sites throughout the cerebrum, cerebellum, and brainstem. There was increasing edema surrounding several sites and there was evidence for associated hemorrhage. That disc was forwarded to the radiation oncology department at [facility]. It was reviewed by Dr. Samantha Parks and due to the brainstem involvement, it was recommended that he initially undergo palliative whole brain radiation. He completed the whole brain radiation on 06/27/2019, total dose 3000 cGy. He tolerated it well. During that time his steroid was changed from prednisone to dexamethasone. Restaging PET/CT on 06/28/2019 showed new FDG avid supraclavicular lymph nodes bilaterally, more prominent on the left, with SUV up to 8.3. Also noted was progression of the subcarinal lymph node with SUV up to 11.6. A prevascular lymph node was noted to have resolved and a right apical pulmonary nodule had resolved. There was also improvement in upper abdominal adenopathy, but with residual FDG avid portal adenopathy with SUV 4.3. There was stable retroperitoneal adenopathy which included a left periodic lymph node with SUV 10.8. Repeat brain MRI on 07/25/2019 showed progression in size and number of the hemorrhagic metastatic sites throughout the brain. Most of the metastatic lesions were noted to measure less than 1 cm, but with significant associated vasogenic edema. I had seen him for a follow-up visit on 07/29/2019. His symptoms had worsened significantly and there was further decline in his general condition. With declining performance status in the setting of progressive EMERGENCY DEPARTMENT PHYSICIAN metastatic disease, his treatment was transitioned to symptomatic/supportive care. He declined hospice. He is seen for a followup visit. His condition has continued to gradually decline. He is very weak generally. He now has numbness in the lower extremities, and he has lost use of his legs. He still gets up to the chair with assistance but is otherwise bed confined. ECOG score is 3. Appetite is not good, but he says he is eating. He also is supplementing with Ensure. He has no fever or night sweats. His mouth and throat have been sore, and he has had pain with swallowing. He has a little bit of cough. He says his breathing is okay. He occasionally has a little chest pain. He does not complain of nausea and he has not been having acid reflux. He has had ongoing problems with constipation. He still has an indwelling Malloy catheter. He is having pain in his tailbone area and he has developed some decubitus skin ulcerations. Medications: Acetaminophen 1 (325 mg) Tablet Oral q 4 hours PRN, Cetirizine HCl 1 Tablet (of 10 mg) Oral b.i.d., Decadron 2 Tablet (of 4 mg) Oral b.i.d., Dronabinol 1 (5 mg) Capsule Oral b.i.d., Levaquin 500 (500 mg) Tablet Oral PRN, Pantoprazole Sodium 1 Tablet (of 40 mg) Tablet, enteric coated Oral daily PRN, Prochlorperazine Maleate 1 Tablet (of 10 mg) Oral q 4 hours PRN, Tamsulosin HCl 2 (0.4 mg) Capsule Oral at bedtime, Voltaren Gel (jelly) Transdermal PRN Allergies: No Known Allergies. Review of Systems: Constitutional - He is very weak and no longer ambulatory. He does get up to the chair with assistance. Appetite is not good, but he is eating some. He has no fever or night sweats. ECOG score is 3, ENMT - No sinus congestion/drainage. He has sore mouth and throat and he has pain with swallowing, Hematologic/Lymphatic - No abnormal bruising or bleeding, Respiratory - No shortness of breath. He has only a little cough. No pleuritic pain or hemoptysis, Cardiovascular - He occasionally has a little chest pain. No palpitations, Gastrointestinal - No nausea or vomiting. No heartburn or acid reflux. He has constipation. No blood in the stool or black stools, Genitourinary (M) - He has indwelling Malloy catheter due to urinary retention, Musculoskeletal - He has pain in the tailbone area, Integumentary - He has developed bed sores in the tailbone area, Neurologic - He has headache and he also complains of dizziness. He has numbness in both legs, and he has no use of his legs now, Psychiatric - He has depression. He is sleeping OK. Vital Signs: Performed on Aug 26, 2019 17:07 Height - 73.00 in Temperature - 97.4 F (LOW) Pulse - 55 /min (LOW) Respiration - 18 /min BP - 107/67 mm(hg) O2 Sat - 98 % Pain - 8 Physical Examination: Constitutional - He appears very weak generally, Eyes - Sclerae nonicteric. Conjunctivae clear, ENMT - There is a coating on the tongue, consistent with geraldine, Hematologic/Lymphatic - I do not feel any cervical, clavicular, or axillary lymphadenopathy, Respiratory - Lungs sound clear, Cardiovascular - Heart rhythm is regular. There is a II/ systolic murmur. There is no gallop or rub noted, Abdomen - Soft. Liver is not enlarged. Spleen is not palpable. There is no abdominal mass or ascites noted. There is no inguinal adenopathy noted, Extremities - No edema, Integumentary - There are superficial decubitus skin ulcerations in the sacral/coccygeal area on both sides, Neurologic - Both legs are flaccid. Lab/Imaging: Test performed on Aug 21, 2019 07:25 WBC 9.0 10 3/uL RBC 2.79 10 6/uL HGB 7.9 g/dL HCT 24.9 % MCV 89.2 fL MCH 28.3 pg MCHC 31.7 g/dL RDW 13.6 % Platelet Count 198 10 3/cmm MPV 10.2 fL Neutrophils 7.6 10 3/uL Lymphocytes 0.2 10 3/uL Monocytes 0.3 10 3/uL Eosinophils 0.0 10 3/uL Basophils 0.0 10 3/uL Neutrophil % 83.8 % Lymphocyte % 2.5 % Monocyte % 2.8 % Eosinophil % 0.1 % Basophils % 0.1 % NRBC % 0 % CBC Slide Review Slide Review Perform SLIDE REVIEW AGREES WITH AUTOMATED RESULTS Impression: 1. Patient with multiple malignancies including marginal zone lymphoma, stage IV renal cell carcinoma, and suspected myeloma. 2. He had initially presented in October 2015 with anemia and IgG kappa monoclonal gammopathy. 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 He also was found to have a large right renal mass. He underwent treatment with 6 weekly infusions of rituximab, completed on 01/20/2016. 3. Repeat bone marrow aspiration/biopsy on 02/23/2016 again showed 100% cellularity with complete effacement by a lymphoid proliferation. 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 4. He then had a second opinion evaluation with Dr. Mamadou Alvarado at [facility]. His evaluation there had included biopsy the right renal mass, with pathology reporting involvement with lymphoma. He was advised to continue treatment with a course of bendamustine/Rituxan chemotherapy, which began on 04/21/2016. He completed 3 cycles of treatment. He had prolonged but not severe neutropenia after the second cycle, and he did receive Neulasta prophylaxis with cycle 3. He tolerated the treatment well otherwise. However, he remained moderately anemic. His restaging CT abdomen/pelvis on 07/19/2016 showed resolution of the small mesenteric and retroperitoneal lymph nodes, but no significant change in the right renal mass. 5. His repeat bone marrow aspiration/biopsy on 08/02/2016 showed only a small amount of residual monoclonal B cells, estimated at 1-2% of the marrow cellularity. [place] restricted plasma cells were estimated at 20-25% of the cellularity, suspicious for plasma cell dyscrasia. His repeat protein electrophoresis showed an increase in his M protein to 1.57 g/dL. Skeletal survey showed no evidence of lytic bone involvement. Overall, the findings were felt to be consistent with myeloma. 6. He underwent left frontal craniotomy with excision of brain metastasis on 03/14/2017, pathology consistent with metastatic renal cell carcinoma. He underwent gamma knife radiosurgery to 4 additional brain lesions. 7. He underwent cytoreductive right laparoscopic radical nephrectomy on 05/03/2017. Pathology showed grade 2 renal cell carcinoma measuring 9.5 cm, clear cell type, pathologic stage T3a, NX. 8. In August 2017 he began treatment with Jadenu 14 mg/kg daily for transfusion associated iron overload. 9. Restaging PET/CT in January 2018 showed mild progression of lymphadenopathy, mainly in the carleen hepatis and retroperitoneal area. His repeat bone marrow aspiration/biopsy on 03/08/2018 showed extensive involvement with B-cell lymphoma, estimated at greater than 70% involvement. 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 10. On 04/08/2018 he began a course of treatment with cyclophosphamide, Velcade, and dexamethasone. He had significant treatment delays due to cytopenias. He ultimately completed his 6 cycle of treatment In July 2018. 11. His restaging bone marrow aspiration/biopsy 08/29/2018 showed 100% cellularity with 70-75% atypical lymphocytes, consistent with residual lymphoma. 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 There also was evidence of disease progression on his restaging PET/CT. 12. On 09/09/2018 he was admitted to the hospital with pneumonia. He has been showing gradual recovery, but during this time he had a significant decline in his performance status. He remained transfusion dependent anemia, and he had moderately severe neutropenia and thrombocytopenia. 13. In September 2018 he began trial of therapy with ibrutinib 420 mg daily. Within a short time he had become severely neutropenic, and the ibrutinib was put on hold. 14. His restaging CT scans on 01/27/2019 showed some progression of lymphadenopathy, though still not bulky. With evidence of disease progression and with declining performance status, I opted to have him begin treatment with venetoclax/rituximab. He began the venetoclax on 01/29/2019 at a dose of 20 mg daily. At that time I also had him start prednisone 20 mg daily. He was able to tolerate the low dosage of venetoclax with no adverse effects, and he then continued escalating the dosage per the standard protocol. As of 02/17/2019 he had continued to have moderately severe but stable neutropenia. He had also remained transfusion dependent. As of 02/19/2019 the venetoclax dosage was increased to 200 mg daily, and as of 02/26/2019 it was further escalated to 400 mg daily. As of 03/06/2019 his treatment was put on hold due to worsening neutropenia, ANC 200. He then started growth factor support with Neupogen. He had a very good response. Within 3 days his absolute neutrophil count had increased to 5400. He was able to restart venetoclax with no recurrence of the neutropenia. He then began cycle 1 of rituximab on 03/13/2019. He tolerated it with no adverse effects. He then continued the venetoclax at 400 mg daily and he continue with cycle 2 of rituximab on 04/10/2019 and with cycle 3 on 05/08/2019. During treatment with venetoclax/rituximab there was evidence of response with increase in the white blood cell count and platelet count and with a significant decrease in the M protein, down to 0.6 g/dL compared to a maximum of 3.0 g/dL. His hemoglobin initially appeared to be showing some improvement, but he subsequently became transfusion dependent again. His repeat brain MRI on 05/15/2019 showed multiple new small metastases involving the cerebrum, cerebellum, and brainstem. He was recommended to undergo palliative whole brain radiation. He completed treatment on 06/27/2019 to a total dose of 3000 cGy. He tolerated it well. His restaging PET/CT on 06/28/2019 showed evidence of some progression of lymph node involvement, mainly in the neck area. During subsequent follow-up his neurologic symptoms have continued to worsen, and there has been significant decline in his performance status. His restaging brain MRI on 07/28/2019 showed significant progression of multiple metastatic lesions in the brain. The most significant area of progression was in the left susan. There was associated edema which was noted to cross the midline to the right. There was at least 1 additional intrathecal metastatic lesion noted on lumbar spine CT scan. 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 At that time he declined hospice. Since then he has had further decline in his condition, as he now has become paraplegic and he has developed decubitus skin ulcerations. Plan: He has been transfused PRBCs today. He will continue symptomatic/supportive care measures at home. His prognosis is extremely poor. At least for now he wishes to continue transfusion support. He does not want hospice, but he is agreeable to having a home health nurse, which is medically necessary based on his need for decubitus skin care, care of his indwelling Malloy catheter, monitoring of his condition, and monitoring of his laboratory studies. His management is otherwise symptomatic. Signed By: Ulysses Lazo M.D. <<Signature on File>>
== END 2019-09-19 23:59 | disposition home or self-care (01) ==
LOC: ONCMED 08:52
PROVIDERS: Nurse Practitioner; Visit Provider Internal Medicine Medical Oncology
DX: Z51.5 Encounter for palliative care (principal); C90.00 Multiple myeloma not having achieved remission; C64.1 Malignant neoplasm of right kidney, except renal pelvis; C79.31 Secondary malignant neoplasm of brain; E83.111 Hemochromatosis due to repeated red blood cell transfusions; C83.09 Small cell B-cell lymphoma, extranodal and solid organ sites; Z92.21 Personal history of antineoplastic chemotherapy; Z92.25 Personal history of immunosuppression therapy; Z92.3 Personal history of irradiation; Z90.5 Acquired absence of kidney; Z87.01 Personal history of pneumonia (recurrent); Z96.0 Presence of urogenital implants; L89.159 Pressure ulcer of sacral region, unspecified stage; B37.0 Candidal stomatitis; G82.21 Paraplegia, complete
CPT/HCPCS: 36430; 85025; 86850; 86900; 86902; 86920; 96365; 96375; 96376; 99214; J1450; J2270; J7050; P9040